=== PATIENT | female | born 1960 | race Hispanic/Latino ===

== ENCOUNTER 2018-04-21 14:51 | Emergency (ER) | payer OTHER ==
[2018-04-21 15:43] LABS: Absolute Lymphocytes (CBC) 1.5 K/uL (0.7-4.9); Absolute Monocytes 0.4 K/uL (0.1-1.3); Absolute Neutrophil 4.8 K/uL (1.8-8.0); Basophils % 0.4 % (0-1.3); Eosinophils % 0.8 % (0-4.4); Hematocrit 42.8 % (36.0-45.0); Lymphocytes % 21.7 % (15.3-44.8); MCV 86.3 fL (80-100); Monocytes % 5.9 % (3.3-12.3); RBC Red Blood Cell Count 4.96 M/uL (3.86-4.86)
--- NOTE | 2018-04-21 15:53 | RAD REPORT ---
EXAM DESCRIPTION: RAD - Chest Single View - 04/21/2018 3:22 pm CLINICAL HISTORY: Shortness of breath, cough COMPARISON: September 2016 TECHNIQUE: AP portable chest image was obtained 1518 hours . FINDINGS: Lungs are clear. Heart and vasculature are normal. No measurable pleural effusion and no p neumothorax. No acute bone finding. No acute aortic findings suspected. IMPRESSION: No acute cardiopulmonary process. No significant interval change.
[2018-04-21 15:57] LABS: Protime INR 0.92
[2018-04-21 17:05] LABS: ALT/SGPT 25 U/L (12-78); AST/SGOT 16 U/L (15-37); Albumin 3.7 g/dL (3.4-5.0); Alkaline Phosphatase 95 U/L (45-117); BUN Blood Urea Nitrogen 14 mg/dL (7-18); Bicarbonate 26 mmol/L (21-32); Bilirubin Direct 0.1 mg/dL (0-0.2); Bilirubin Total 0.4 mg/dL (0.2-1.0); CKMB Creatine Kinase MB < 1.0 ng/mL (0.3-3.6); Creatine Phosphokinase 52 U/L (26-192); Glucose Level 109 mg/dL (74-106); Magnesium 1.8 mg/dL (1.8-2.4); NT PRO-BNP 110 pg/mL (<125); Potassium 3.9 mmol/L (3.5-5.1); Protein, Total 7.1 g/dL (6.4-8.2); Sodium Level 139 mmol/L (136-145)
--- NOTE | 2018-04-21 17:23 | EDPHYS ---
Physician Documentation [facility] Name: Justina Yoo Age: 58 yrs Sex: Female : 1960 Arrival Date: 04/21/2018 Time: 14:53 Bed 13 Private MD: SOFIA WORLEY ED Physician Romie Serrato HPI: 04/21 16:50 This 58 yrs old Female presents to ER via Ambulatory with complaints of feli Palpitations, Dizziness. 16:50 The patient presents with a history of heart skipping beats. Context: The symptoms feli occur at rest. Onset: The symptoms/episode began/occurred 2 day(s) ago. Duration: The patient or guardian reports multiple episodes, with no pattern. Modifying factors: The symptoms are aggravated by anxiety, The symptoms are alleviated by nothing. rest. Associated signs and symptoms: Pertinent positives: anxiety. Severity of symptoms: At their worst the symptoms were mild in the emergency department the symptoms have resolved and did so just prior to arrival. The patient has experienced similar episodes in the past, several times. Historical: - Allergies: 15:07 PENICILLINS; jl7 - PMHx: 15:07 Anxiety; Arthritis; Asthma; Depression; Diabetes - NIDDM; Hypertension; Thyroid problem;jl7 - Immunization history:: Adult Immunizations not up to date. - Social history:: Smoking status: Patient/guardian denies using tobacco. - Ebola Screening: : No symptoms or risks identified at this time. - Family history:: not pertinent. ROS: 16:50 Constitutional: Negative for fever, chills, and weight loss, Eyes: Negative for injury, feli pain, redness, and discharge, ENT: Negative for injury, pain, and discharge, Neck: Negative for injury, pain, and swelling, Respiratory: Negative for shortness of breath, cough, wheezing, and pleuritic chest pain, Abdomen/GI: Negative for abdominal pain, nausea, vomiting, diarrhea, and constipation, Back: Negative for injury and pain, : Negative for injury, bleeding, discharge, and swelling, MS/Extremity: Negative for injury and deformity, Skin: Negative for injury, rash, and discoloration, Neuro: Negative for headache, weakness, numbness, tingling, and seizure. 16:50 Cardiovascular: Positive for palpitations. Exam: 16:50 Constitutional: This is a well developed, well nourished patient who is awake, alert, feli and in no acute distress. Head/Face: Normocephalic, atraumatic. Eyes: Pupils equal round and reactive to light, extra-ocular motions intact. Lids and lashes normal. Conjunctiva and sclera are non-icteric and not injected. Cornea within normal limits. Periorbital areas with no swelling, redness, or edema. ENT: Nares patent. No nasal discharge, no septal abnormalities noted. Tympanic membranes are normal and external auditory canals are clear. Oropharynx with no redness, swelling, or masses, exudates, or evidence of obstruction, uvula midline. Mucous membranes moist. Neck: Trachea midline, no thyromegaly or masses palpated, and no cervical lymphadenopathy. Supple, full range of motion without nuchal rigidity, or vertebral point tenderness. No Meningismus. Chest/axilla: Normal chest wall appearance and motion. Nontender with no deformity. No lesions are appreciated. Cardiovascular: Regular rate and rhythm with a normal S1 and S2. No gallops, murmurs, or rubs. Normal PMI, no JVD. No pulse deficits. Respiratory: Lungs have equal breath sounds bilaterally, clear to auscultation and percussion. No rales, rhonchi or wheezes noted. No increased work of breathing, no retractions or nasal flaring. Abdomen/GI: Soft, non-tender, with normal bowel sounds. No distension or tympany. No guarding or rebound. No evidence of tenderness throughout. Back: No spinal tenderness. No costovertebral tenderness. Full range of motion. Female : Normal external genitalia. Skin: Warm, dry with normal turgor. Normal color with no rashes, no lesions, and no evidence of cellulitis. 16:50 Musculoskeletal/extremity: DVT Exam: No signs of deep vein thrombosis. no pain, no swelling, no tenderness, negative Homans' sign noted on exam, no appreciated bluish discoloration, no erythema, no increased warmth. Vital Signs: 15:07 BP 126 / 61; Pulse 73; Resp 18 S; Temp 97.9(O); Pulse Ox 97% on R/A; Weight 114.31 kg jl7 (R); Height 5 ft. 0 in. (152.40 cm) (R); Pain 4/10; 17:35 BP 133 / 75 Standing; Pulse 72; Resp 18; Pulse Ox 97% on R/A; hj 17:36 BP 158 / 74 Sitting; Pulse 75; Resp 18; Pulse Ox 97% on R/A; hj 17:37 BP 124 / 56 Supine; Pulse 72; Resp 17; Pulse Ox 98% on R/A; hj 15:07 Body Mass Index 49.21 (114.31 kg, 152.40 cm) jl7 MDM: 15:10 Patient medically screened. [facility] 16:53 Data reviewed: vital signs, nurses notes, lab test result(s), EKG, radiologic studies, feli plain films. 04/21 15:12 Order name: Basic Metabolic Panel; Complete Time: 17:21 [facility] 04/21 15:12 Order name: CBC with Diff; Complete Time: 16:49 [facility] 04/21 15:12 Order name: Ckmb; Complete Time: 17:21 [facility] 04/21 15:12 Order name: CPK; Complete Time: 17:21 [facility] 04/21 15:12 Order name: LFT's; Complete Time: 17:21 [facility] 04/21 15:12 Order name: Magnesium; Complete Time: 17:21 [facility] 04/21 15:12 Order name: NT PRO-BNP; Complete Time: 17:21 [facility] 04/21 15:12 Order name: PT-INR; Complete Time: 16:49 [facility] 04/21 15:12 Order name: Ptt, Activated; Complete Time: 16:49 [facility] 04/21 15:12 Order name: Troponin (emerg Dept Use Only); Complete Time: 16:49 [facility] 04/21 15:12 Order name: XRAY Chest (1 view); Complete Time: 16:49 [facility] 04/21 15:12 Order name: TSH; Complete Time: 17:21 [facility] 04/21 17:42 Order name: Urine Dipstick--Ancillary (enter results) 04/21 15:12 Order name: EKG; Complete Time: 15:13 [facility] 04/21 15:12 Order name: Cardiac monitoring; Complete Time: 15:14 [facility] 04/21 15:12 Order name: EKG - Nurse/Tech; Complete Time: 15:27 [facility] 04/21 15:12 Order name: IV Saline Lock; Complete Time: 15:32 [facility] 04/21 15:12 Order name: Labs collected and sent; Complete Time: 15:32 [facility] 04/21 15:12 Order name: O2 Per Protocol; Complete Time: 15:14 [facility] 04/21 15:12 Order name: O2 Sat Monitoring; Complete Time: 15:15 [facility] 04/21 17:23 Order name: Orthostatics; Complete Time: 17:39 [facility] Administered Medications: 15:32 Drug: NS 0.9% 1000 ml Route: IV; Rate: 125 ml/hr; Site: right hand; cc3 17:31 Drug: Aspirin Chewable Tablet 162 mg Route: PO; cc3 17:39 Follow up: Response: No adverse reaction cc3 Disposition: 04/21/18 17:22 Discharged to Home. Impression: Palpitations, Type 2 diabetes mellitus, Obesity, unspecified, Anxiety disorder, unspecified. - Condition is Stable. - Discharge Instructions: Panic Attacks, Type 2 Diabetes Mellitus, Diagnosis, Adult, Obesity, Adult, Palpitations, Aspirin and Your Heart, Palpitations, [id number], Exercising to Lose Weight. - Prescriptions for Xanax 0.5 mg Oral Tablet - take 1 tablet by ORAL route every 8 hours As needed; 20 tablet. - Medication Reconciliation Form, Thank You Letter, Antibiotic Education, Prescription Opioid Use form. - Follow up: SOFIA WORLEY; When: 2 - 3 days; Reason: Recheck today's complaints, Continuance of care, Re-evaluation by your physician. Follow up: Saw Mathis; When: 2 - 3 days; Reason: Recheck today's complaints, Re-evaluation by your physician. - Problem is new. - Symptoms have improved. Signatures: Dispatcher [employer] EDRomie Brewer MD MD cha Williams, Irene RN Mookie Hammer RN RN jl7 Cordel, Charlene cc3 Corrections: (The following items were deleted from the chart) 17:56 17:22 04/21/2018 17:22 Discharged to Home. Impression: Palpitations; Type 2 diabetes iw mellitus; Obesity, unspecified; Anxiety disorder, unspecified. Condition is Stable. Discharge Instructions: Panic Attacks, Type 2 Diabetes Mellitus, Diagnosis, Adult, Obesity, Adult, Palpitations, Aspirin and Your Heart, Palpitations, [id number], Exercising to Lose Weight. Forms are Medication Reconciliation Form, Thank You Letter, Antibiotic Education, Prescription Opioid Use. Follow up: SOFIA WORLEY; When: 2 - 3 days; Reason: Recheck today's complaints, Continuance of care, Re-evaluation by your physician. Follow up: Saw Mathis; When: 2 - 3 days; Reason: Recheck today's complaints, Re-evaluation by your physician. Problem is new. Symptoms have improved. feli
--- NOTE | 2018-04-21 17:23 | ER ---
Nurse's Notes [facility] Name: Justina Yoo Age: 58 yrs Sex: Female : 1960 Arrival Date: 04/21/2018 Time: 14:53 Bed 13 Private MD: SOFIA WORLEY Diagnosis: Palpitations;Type 2 diabetes mellitus;Obesity, unspecified;Anxiety disorder, unspecified Presentation: 04/21 15:05 Presenting complaint: Patient states: Reports dizziness, nausea, heart palpitations, jl7 shortness of breath with cough x 2 days. Transition of care: patient was not received from another setting of care. Onset of symptoms was April 19, 2018. Risk Assessment: Do you want to hurt yourself or someone else? Patient reports no desire to harm self or others. Initial Sepsis Screen: Does the patient meet any 2 criteria? No. Patient's initial sepsis screen is negative. Does the patient have a suspected source of infection? No. Patient's initial sepsis screen is negative. Care prior to arrival: None. 15:05 Method Of Arrival: Ambulatory 7 15:05 Acuity: SARIKA 3 jl7 Triage Assessment: 15:20 General: Appears comfortable, Behavior is calm, cooperative, appropriate for age. Pain: cc3 Complains of pain in chest Pain currently is 2 out of 10 on a pain scale. Quality of pain is described as aching, Pain began suddenly. 15:20 Cardiovascular: Chest pain is described as mild. cc3 Historical: - Allergies: 15:07 PENICILLINS; jl7 - PMHx: 15:07 Anxiety; Arthritis; Asthma; Depression; Diabetes - NIDDM; Hypertension; Thyroid problem;jl7 - Immunization history:: Adult Immunizations not up to date. - Social history:: Smoking status: Patient/guardian denies using tobacco. - Ebola Screening: : No symptoms or risks identified at this time. - Family history:: not pertinent. Screenin:20 Abuse screen: Denies threats or abuse. Nutritional screening: No deficits noted. cc3 Tuberculosis screening: No symptoms or risk factors identified. 15:20 Fall Risk IV access (20 points). Gait- Normal/Bed Rest/Wheelchair (0 pts) Mental cc3 Status- Oriented to own ability (0 pts). Vital Signs: 15:07 BP 126 / 61; Pulse 73; Resp 18 S; Temp 97.9(O); Pulse Ox 97% on R/A; Weight 114.31 kg jl7 (R); Height 5 ft. 0 in. (152.40 cm) (R); Pain 4/10; 17:35 BP 133 / 75 Standing; Pulse 72; Resp 18; Pulse Ox 97% on R/A; hj 17:36 BP 158 / 74 Sitting; Pulse 75; Resp 18; Pulse Ox 97% on R/A; hj 17:37 BP 124 / 56 Supine; Pulse 72; Resp 17; Pulse Ox 98% on R/A; hj 15:07 Body Mass Index 49.21 (114.31 kg, 152.40 cm) jl7 ED Course: 14:53 Patient arrived in ED. sb2 14:54 SOFIA WORLEY is Private Physician. sb2 15:07 Triage completed. jl7 15:08 Arm band placed on right wrist. jl7 15:10 Romie Serrato MD is Attending Physician. feli 15:20 Patient has correct armband on for positive identification. Placed in gown. Bed in low cc3 position. Call light in reach. Side rails up X2. 15:22 XRAY Chest (1 view) In Process Unspecified. EDMS 15:22 X-ray completed. Portable x-ray completed in exam room. Patient tolerated procedure bb2 well. 15:32 Initial lab(s) drawn, by me, sent to lab. EKG done, by rv service technician. Inserted saline lock: cc3 22 gauge in right hand, using aseptic technique. Blood collected. 15:36 EKG done, by rv service technician. reviewed by Romie Serrato MD. dt2 17:22 SOFIA WORLEY is Referral Physician. feli 17:22 Saw Mathis MD is Referral Physician. feli 17:45 No provider procedures requiring assistance completed. hj 17:45 IV discontinued, intact, bleeding controlled, No redness/swelling at site. Pressure hj dressing applied. Administered Medications: 15:32 Drug: NS 0.9% 1000 ml Route: IV; Rate: 125 ml/hr; Site: right hand; cc3 17:31 Drug: Aspirin Chewable Tablet 162 mg Route: PO; cc3 17:39 Follow up: Response: No adverse reaction cc3 Outcome: 17:22 Discharge ordered by . feli 17:45 Discharged to home ambulatory, with family. hj 17:45 Condition: stable 17:45 Discharge instructions given to patient, family, Instructed on discharge instructions, follow up and referral plans. medication usage, Demonstrated understanding of instructions, follow-up care, medications, Prescriptions given X 1. 17:56 Patient left the ED. iw Signatures: Dispatcher [employer] EDMS Romie Serrato MD MD cha Williams, Irene RN TSERING iw Tay Werner RN RN hj Leal, Jahala, RN RN jl7 Mimi Meraz2 Maria Fernanda Garcia sb2 Viktoria Amaya dt2 Vandana Yancey cc3
--- NOTE | 2018-04-21 17:26 | EKG ---
Test Date: 2018-04-21 Test Time: 15:19:53 Order Packer: RENU MEASUREMENT RESULTS: Intervals: Rate: 72 IA: 160 QRSD: 84 QT: 402 QTc: 440 [place]: P: 12 IA: 160 QRS: 31 T: 22 INTERPRETIVE STATEMENTS: Normal sinus rhythm with sinus arrhythmia Normal ECG Compared to ECG 10/04/2016 19:16:14 Myocardial infarct finding no longer present Electronically Signed On 04-21-18 17:25:49 CDT by Marko Baeza
[2018-04-21] MEDS ORDERED: ASPIRIN EC 81 MG TAB PO ONE (17:39)
[2018-04-21 18:02] VITALS: BP 126/61; TEMP 97.9; O2SAT 97
[2018-04-21 18:14] LABS: Urine Blood NEGATIVE (NEG); Urine Glucose NEGATIVE (NEG); Urine Protein NEGATIVE (NEG); Urine Specific Gravity 1.015 (1.005-1.030)
== END 2018-04-21 17:56 | disposition home or self-care (01) ==
LOC: ER 14:51
DX: F41.9 Anxiety disorder, unspecified (principal); E11.9 Type 2 diabetes mellitus without complications; E66.9 Obesity, unspecified; I10 Essential (primary) hypertension; Z88.0 Allergy status to penicillin
CPT/HCPCS: 36415; 71045; 80048; 80076; 81003; 82550; 82553; 83735; 83880; 84443; 84484; 85025; 85610; 85730; 93005; 99284

== ENCOUNTER 2018-06-11 21:06 | Emergency (ER) | payer OTHER ==
[2018-06-11 21:37] LABS: Absolute Lymphocytes (CBC) 2.1 K/uL (0.7-4.9); Absolute Monocytes 0.5 K/uL (0.1-1.3); Absolute Neutrophil 5.1 K/uL (1.8-8.0); Basophils % 0.5 % (0-1.3); Eosinophils % 0.7 % (0-4.4); Hematocrit 40.4 % (36.0-45.0); Lymphocytes % 27.7 % (15.3-44.8); MCH 29.1 pg (27.0-35.0); MCV 86.2 fL (80-100); MPV 8.8 fL (7.6-11.3); RBC Red Blood Cell Count 4.69 M/uL (3.86-4.86)
[2018-06-11 21:44] LABS: Protime INR 0.97
[2018-06-11 21:59] LABS: ALT/SGPT 18 U/L (12-78); AST/SGOT 9 U/L (15-37); Albumin 3.7 g/dL (3.4-5.0); Alkaline Phosphatase 97 U/L (45-117); BUN Blood Urea Nitrogen 13 mg/dL (7-18); Bicarbonate 28 mmol/L (21-32); Bilirubin Direct 0.1 mg/dL (0-0.2); Bilirubin Total 0.4 mg/dL (0.2-1.0); Glucose Level 112 mg/dL (74-106); Magnesium 1.9 mg/dL (1.8-2.4); NT PRO-BNP 90 pg/mL (<125); Potassium 3.7 mmol/L (3.5-5.1); Protein, Total 7.1 g/dL (6.4-8.2); Sodium Level 143 mmol/L (136-145); Troponin (Emerg Dept Use Only) < 0.02 ng/mL (0.0-0.045)
--- NOTE | 2018-06-12 00:37 | ER ---
Nurse's Notes [facility] Name: Justina Yoo Age: 58 yrs Sex: Female : 1960 Arrival Date: 06/11/2018 Time: 21:08 Bed 7 Private MD: Diagnosis: Presentation: 06/11 21:18 Presenting complaint: Patient states: She had chest pain that started about three hours ea ago when she was walking at [employer], pt reports it comes and goes and is also having acid reflux. Transition of care: patient was not received from another setting of care. Onset of symptoms was June 11, 2018. Risk Assessment: Do you want to hurt yourself or someone else? Patient reports no desire to harm self or others. Initial Sepsis Screen: Does the patient meet any 2 criteria? No. Patient's initial sepsis screen is negative. Does the patient have a suspected source of infection? No. Patient's initial sepsis screen is negative. Care prior to arrival: Medication(s) given: ASA, 81 mg, x 1. 21:18 Method Of Arrival: Ambulatory ea 21:18 Acuity: SARIKA 3 ea Triage Assessment: 21:27 General: Appears in no apparent distress. Behavior is calm, cooperative, appropriate ea for age. Pain: Complains of pain in anterior aspect of left upper chest Pain does not radiate. Pain currently is 5 out of 10 on a pain scale. Quality of pain is described as pressure, Pain began 3 hours ago. Is intermittent. EENT: No signs and/or symptoms were reported regarding the EENT system. Neuro: Level of Consciousness is awake, alert, obeys commands, Oriented to person, place, time, situation. Cardiovascular: Heart tones S1 S2 present Patient's skin is warm and dry. Respiratory: Airway is patent Respiratory effort is even, unlabored, Respiratory pattern is regular, symmetrical, Breath sounds are clear bilaterally. GI: Abdomen is non-distended, Bowel sounds present X 4 quads. Derm: Skin is pink, warm \T\ dry. Historical: - Allergies: 21:26 PENICILLINS; ea - Home Meds: 21:26 carvedilol 6.25 mg Oral tab 1 tab 2 times per day [Active]; aspirin 81 mg Oral TbEC 1 ea tab once daily [Active]; lisinopril 10 mg Oral tab 1 tab once daily [Active]; metformin 500 mg Oral Tb24 1 tab once daily [Active]; Synthroid 125 mcg Oral tab 1 tab once daily [Active]; Victoza 2-Patrick subcutaneous subcutaneous [Active]; - PMHx: 21:26 Thyroid problem; Hypertension; Diabetes - NIDDM; Depression; Asthma; Arthritis; Anxiety;ea - Immunization history:: Adult Immunizations up to date. - Social history:: Smoking status: Patient/guardian denies using tobacco. - Ebola Screening: : No symptoms or risks identified at this time. Screenin:27 Abuse screen: Denies threats or abuse. Nutritional screening: No deficits noted. ea Tuberculosis screening: No symptoms or risk factors identified. Fall Risk IV access (20 points). Assessment: 22:25 Reassessment: Patient and/or family updated on plan of care and expected duration. Pain ea level reassessed. Patient is alert, oriented x 3, equal unlabored respirations, skin warm/dry/pink. 22:40 Reassessment: Patient and/or family updated on plan of care and expected duration. Pain ea level reassessed. Patient is alert, oriented x 3, equal unlabored respirations, skin warm/dry/pink. Patient states feeling better. Patient states symptoms have improved. 23:57 Reassessment: Patient and/or family updated on plan of care and expected duration. Pain ea level reassessed. Patient is alert, oriented x 3, equal unlabored respirations, skin warm/dry/pink. Patient states feeling better. Patient states symptoms have improved. 06/12 00:31 Reassessment: Patient and/or family updated on plan of care and expected duration. Pain ea level reassessed. Patient is alert, oriented x 3, equal unlabored respirations, skin warm/dry/pink. Pt reports she did not want to wait for results because her granddaughter was waiting in the lobby. Provider notified, pt verbalized the understanding of possible adverse effects of leaving AMA, pt signed AMA form. IV discontinued, catheter intact, bleeding controlled, pressure dressing applied pt tolerated well. Pt left ED ambulating no s/s of pain or discomfort noted. Patient states feeling better. Patient states symptoms have improved. Vital Signs: 06/11 21:22 BP 125 / 55; Pulse 87; Resp 20; Temp 98.7(O); Pulse Ox 100% ; Weight 115.67 kg; Height ea 5 ft. 0 in. (152.40 cm); Pain 5/10; 22:01 BP 113 / 53; Pulse 83; Resp 18; Pulse Ox 99% on R/A; mt 23:41 BP 140 / 68; Pulse 84; Resp 18; Pulse Ox 98% on R/A; mt 21:22 Body Mass Index 49.80 (115.67 kg, 152.40 cm) ea ED Course: 21:08 Patient arrived in ED. al2 21:13 Britni Lawrence RN is Primary Nurse. ea 21:16 Gorge Gooden MD is Attending Physician. tw4 21:22 Triage completed. ea 21:24 Patient placed in an exam room, on a stretcher, on professor of forest planning, on pulse oximetry. ea 21:27 Patient has correct armband on for positive identification. Bed in low position. Call ea light in reach. Side rails up X 1. wing coverer on. Pulse ox on. NIBP on. 21:29 Inserted saline lock: 20 gauge in right antecubital area, using aseptic technique. ea Blood collected. Patient maintains SpO2 saturation greater than 95% on room air. 21:44 XRAY Chest (1 view) In Process Unspecified. EDMS 06/12 00:35 No provider procedures requiring assistance completed. IV discontinued, intact, ea bleeding controlled, No redness/swelling at site. Pressure dressing applied. Administered Medications: No medications were administered Outcome: 00:35 AMA AMA form signed ea 00:36 Patient left the ED. ea Signatures: Dispatcher [employer] EDNE Joseline Webb wa Britni Lawrence, Karyna Emerson RN, ea [facility] Gorge Gooden MD MD tw4
--- NOTE | 2018-06-12 00:37 | EDPHYS ---
Physician Documentation [facility] Name: Justina Yoo Age: 58 yrs Sex: Female : 1960 Arrival Date: 06/11/2018 Time: 21:08 Bed 7 Private MD: ED Physician Gorge Gooden Historical: - Allergies: 06/11 21:26 PENICILLINS; ea - Home Meds: 21:26 carvedilol 6.25 mg Oral tab 1 tab 2 times per day [Active]; aspirin 81 mg Oral TbEC 1 ea tab once daily [Active]; lisinopril 10 mg Oral tab 1 tab once daily [Active]; metformin 500 mg Oral Tb24 1 tab once daily [Active]; Synthroid 125 mcg Oral tab 1 tab once daily [Active]; Victoza 2-Patrick subcutaneous subcutaneous [Active]; - PMHx: 21:26 Thyroid problem; Hypertension; Diabetes - NIDDM; Depression; Asthma; Arthritis; Anxiety;ea - Immunization history:: Adult Immunizations up to date. - Social history:: Smoking status: Patient/guardian denies using tobacco. - Ebola Screening: : No symptoms or risks identified at this time. Vital Signs: 21:22 BP 125 / 55; Pulse 87; Resp 20; Temp 98.7(O); Pulse Ox 100% ; Weight 115.67 kg; Height ea 5 ft. 0 in. (152.40 cm); Pain 5/10; 22:01 BP 113 / 53; Pulse 83; Resp 18; Pulse Ox 99% on R/A; mt 23:41 BP 140 / 68; Pulse 84; Resp 18; Pulse Ox 98% on R/A; mt 21:22 Body Mass Index 49.80 (115.67 kg, 152.40 cm) ea MDM: 21:16 Patient medically screened. tw4 06/11 21:21 Order name: Basic Metabolic Panel tw4 06/11 21:21 Order name: CBC with Diff tw4 06/11 21:21 Order name: LFT's tw4 06/11 21:21 Order name: Magnesium tw4 06/11 21:21 Order name: NT PRO-BNP tw4 06/11 21:21 Order name: PT-INR tw4 06/11 21:21 Order name: Troponin (emerg Dept Use Only) tw4 06/11 21:21 Order name: XRAY Chest (1 view) tw4 06/11 21:21 Order name: EKG; Complete Time: 21: tw4 06/11 21:21 Order name: Cardiac monitoring; Complete Time: : tw4 06/11 21:21 Order name: EKG - Nurse/Tech; Complete Time: 21:23 tw4 06/11 21:21 Order name: IV Saline Lock; Complete Time: 22:02 tw4 06/11 21:21 Order name: Labs collected and sent; Complete Time: 22:02 tw4 06/12 00:19 Order name: Troponin (emerg Dept Use Only) ea 06/11 21:21 Order name: O2 Per Protocol; Complete Time: : tw4 06/11 21:21 Order name: O2 Sat Monitoring; Complete Time: : tw EC/04 00:35 Rate is 81 beats/min. Rhythm is regular. QRS [place] is Normal. VT interval is normal. QRS tw4 interval is normal. QT interval is normal. No Q waves. T waves are Normal. No ST changes noted. Clinical impression: Normal ECG. Interpreted by me. Reviewed by me. Administered Medications: No medications were administered Disposition: 06/12/18 00:36 Patient has left against medical advice. - Patients states they are going to Home. - Condition is Stable. Signatures: Dispatcher [employer] Britni Ramirez, RN Gorge Phipps ea, MD MD tw4 Corrections: (The following items were deleted from the chart) 00:36 00:36 06/12/2018 00:36 Patients has left against medical advice. Patient states they ea are going to Home. Condition is Stable. garcia
[2018-06-12 00:41] VITALS: TEMP 98.7
[2018-06-12 00:43] VITALS: BP 140/68; O2SAT 98
--- NOTE | 2018-06-12 06:31 | RAD REPORT ---
EXAM DESCRIPTION: RAD - Chest Single View - 06/11/2018 9:45 pm CLINICAL HISTORY: Chest pain COMPARISON: April 21 TECHNIQUE: AP portable chest image was obtained 2131 hours . FINDINGS: Lungs are clear. Heart and vasculature are normal. No measurable pleural effusion and no p neumothorax. No gross bony abnormality seen. No acute aortic findings suspected. IMPRESSION: No acute cardiopulmonary process. No significant interval change.
--- NOTE | 2018-06-12 16:49 | EKG ---
Test Date: 2018-06-11 Test Time: 21:16:58 Construction Millwright: FAUSTINO MEASUREMENT RESULTS: Intervals: Rate: 81 DE: 150 QRSD: 88 QT: 388 QTc: 450 [place]: P: 18 DE: 150 QRS: 60 T: 44 INTERPRETIVE STATEMENTS: Normal sinus rhythm Normal ECG Compared to ECG 04/21/2018 15:19:53 Sinus arrhythmia no longer present Electronically Signed On 06-12-18 16:44:50 CDT by Saw Mathis
== END 2018-06-12 00:36 | disposition left against medical advice (07) ==
LOC: ER 21:06
DX: R07.9 Chest pain, unspecified (principal); I10 Essential (primary) hypertension; E11.9 Type 2 diabetes mellitus without complications; F41.8 Other specified anxiety disorders; Z88.0 Allergy status to penicillin
CPT/HCPCS: 36415; 71045; 80048; 80076; 83735; 83880; 84484; 85025; 85610; 93005; 99285

== ENCOUNTER 2018-08-08 09:06 | Emergency (ER) | payer OTHER, MEDICAID ==
[2018-08-08] MEDS ORDERED: ONDANSETRON 4 MG/2 ML VIAL ONE (10:34)
[2018-08-08] MEDS ORDERED: NA CHLORIDE 0.9% 1,000 ML ONE (10:34)
[2018-08-08 10:45] LABS: Absolute Lymphocytes (CBC) 0.2 K/uL (0.7-4.9); Absolute Monocytes 0.3 K/uL (0.1-1.3); Absolute Neutrophil 9.3 K/uL (1.8-8.0); Basophils % 0.2 % (0-1.3); Hematocrit 42.7 % (36.0-45.0); Lymphocytes % 2.4 % (15.3-44.8); MCH 30.3 pg (27.0-35.0); MCV 85.8 fL (80-100); MPV 9.2 fL (7.6-11.3); Monocytes % 3.5 % (3.3-12.3); RBC Red Blood Cell Count 4.98 M/uL (3.86-4.86)
[2018-08-08 11:02] LABS: Albumin 3.5 g/dL (3.4-5.0); Bilirubin Direct 2.2 mg/dL (0-0.2); Bilirubin Total 3.6 mg/dL (0.2-1.0); Potassium 3.8 mmol/L (3.5-5.1); Protein, Total 7.1 g/dL (6.4-8.2)
--- NOTE | 2018-08-08 11:42 | RAD REPORT ---
EXAM DESCRIPTION: US - Abdomen Exam Limited - 08/08/2018 11:34 am CLINICAL HISTORY: ABD PAIN COMPARISON: RP EXAM COMPLETE dated 03/31/2009 FINDINGS: The gallbladder demonstrates no gallstones. No pericholecystic fluid or gallbladder wall t hickening. The common bile duct is normal measuring 3 mm. The liver demonstrates no findings of intrahepatic biliary dilatation. IMPRESSION: Unremarkable examination.
--- NOTE | 2018-08-08 12:36 | RAD REPORT ---
EXAM DESCRIPTION: CT - Abdomen Pelvis W Contrast - 08/08/2018 12:19 pm CLINICAL HISTORY: Abdominal pain with vomiting COMPARISON: 2015. TECHNIQUE: Computed axial tomography of the abdomen pelvis was obtained. 100 cc Isovue-300 was admin istered intravenously. Oral contrast was not requested which limits evaluation of bowel. All CT scans are performed using dose optimization technique as appropriate and may include automated exposure control or mA/KV adjustment according to patient size. FINDINGS: The liver, spleen, pancreas, adrenal and kidneys appear unremarkable. There is no evidence of diverticulitis. The appendix is normal. An adnexal mass is not seen. A tiny umbilical hernia is present. IMPRESSION: No acute abnormality is displayed.
--- NOTE | 2018-08-08 13:47 | EDPHYS ---
Physician Documentation [facility] Name: Justina Yoo Age: 58 yrs Sex: Female : 1960 Arrival Date: 08/08/2018 Time: 09:09 Bed 5 Private MD: SOFIA WORLEY ED Physician Ghulam Rogel HPI: 08/08 11:06 This 58 yrs old Female presents to ER via Ambulatory with complaints of Flu kb Symptoms. 11:06 The patient presents to the emergency department with nausea, vomiting. Onset: The kb symptoms/episode began/occurred yesterday. Possible causes: unknown. The symptoms are aggravated by nothing. The symptoms are alleviated by nothing. Associated signs and symptoms: Pertinent positives: abdominal pain, nausea, vomiting, Pertinent negatives: anorexia, belching, constipation, diarrhea, dysuria, fever, flatulence, GI bleeding, hematuria, vaginal discharge. Severity of symptoms: At their worst the symptoms were moderate in the emergency department the symptoms are unchanged. The patient has not experienced similar symptoms in the past. The patient has not recently seen a physician. Pt reports nausea, vomiting, and chills that started yesterday. Reports upper abd pain yesterday, no pain today. Historical: - Allergies: 09:23 PENICILLINS; ss - PMHx: 09:23 Anxiety; Arthritis; Asthma; Depression; Diabetes - NIDDM; Hypertension; Thyroid problem;ss - Immunization history:: Adult Immunizations up to date. - Social history:: Smoking status: Patient/guardian denies using tobacco. - Ebola Screening: : Patient denies exposure to infectious person Patient denies travel to an Ebola-affected area in the 21 days before illness onset. ROS: 11:05 Neck: Negative for injury, pain, and swelling, Cardiovascular: Negative for chest pain, kb palpitations, and edema, Respiratory: Negative for shortness of breath, cough, wheezing, and pleuritic chest pain, Back: Negative for injury and pain, : Negative for injury, bleeding, discharge, and swelling, MS/Extremity: Negative for injury and deformity, Skin: Negative for injury, rash, and discoloration, Neuro: Negative for headache, weakness, numbness, tingling, and seizure. 11:05 Constitutional: Positive for body aches, chills, Negative for fatigue, fever, malaise, poor PO intake, weight loss. 11:05 Abdomen/GI: Positive for abdominal pain, nausea and vomiting, Negative for diarrhea, constipation, abdominal cramps, abdominal distension, anorexia. Exam: 11:05 Constitutional: This is a well developed, well nourished patient who is awake, alert, kb and in no acute distress. Head/Face: Normocephalic, atraumatic. ENT: Nares patent. No nasal discharge, no septal abnormalities noted. Tympanic membranes are normal and external auditory canals are clear. Oropharynx with no redness, swelling, or masses, exudates, or evidence of obstruction, uvula midline. Mucous membranes moist. Neck: Trachea midline, no thyromegaly or masses palpated, and no cervical lymphadenopathy. Supple, full range of motion without nuchal rigidity, or vertebral point tenderness. No Meningismus. Chest/axilla: Normal chest wall appearance and motion. Nontender with no deformity. No lesions are appreciated. Cardiovascular: Regular rate and rhythm with a normal S1 and S2. No gallops, murmurs, or rubs. Normal PMI, no JVD. No pulse deficits. Respiratory: Lungs have equal breath sounds bilaterally, clear to auscultation and percussion. No rales, rhonchi or wheezes noted. No increased work of breathing, no retractions or nasal flaring. Abdomen/GI: Soft, non-tender, with normal bowel sounds. No distension or tympany. No guarding or rebound. No evidence of tenderness throughout. Skin: Warm, dry with normal turgor. Normal color with no rashes, no lesions, and no evidence of cellulitis. MS/ Extremity: Pulses equal, no cyanosis. Neurovascular intact. Full, normal range of motion. Neuro: Awake and alert, GCS 15, oriented to person, place, time, and situation. Cranial nerves II-XII grossly intact. Motor strength 5/5 in all extremities. Sensory grossly intact. Cerebellar exam normal. Normal gait. Vital Signs: 09:23 BP 135 / 74; Pulse 98; Resp 16; Temp 97.9(TE); Pulse Ox 98% on R/A; Weight 113.4 kg; ss Height 5 ft. 0 in. (152.40 cm); Pain 0/10; 10:30 BP 132 / 72; Pulse 88; Resp 15; Pulse Ox 100% on R/A; hb 11:30 BP 138 / 78; Pulse 84; Resp 16; Pulse Ox 100% on R/A; hb 12:30 BP 132 / 74; Pulse 77; Resp 16; Pulse Ox 100% on R/A; Pain 0/10; hb 13:22 BP 129 / 69; Pulse 79; Resp 17; Pulse Ox 97% on R/A; hb 09:23 Body Mass Index 48.82 (113.40 kg, 152.40 cm) ss MDM: 10:16 Patient medically screened. kb 11:05 Data reviewed: vital signs, nurses notes. Data interpreted: Pulse oximetry: on room air kb is 98 %. Interpretation: normal. 13:45 Counseling: I had a detailed discussion with the patient and/or guardian regarding: the kb historical points, exam findings, and any diagnostic results supporting the discharge/admit diagnosis, lab results, radiology results, the need for further work-up and treatment in the hospital. Refusal of service: The patient/guardian displays adequate decision making capability and despite a detailed discussion of alternatives, benefits, risks, and consequences refuses: Admission to the hospital for further work-up and treatment. ED course: Pt educated on elevated liver enzymes and need for admission to further studies. Pt does not want to stay in the hospital. States she will see her doctor.. 08/08 09:24 Order name: Flu; Complete Time: 10:16 ss 08/08 10:19 Order name: Basic Metabolic Panel; Complete Time: 11:08 kb 08/08 10:19 Order name: CBC with Diff; Complete Time: 10:53 kb 08/08 10:19 Order name: Hepatic Function; Complete Time: 11:08 kb 08/08 10:19 Order name: Lipase; Complete Time: 11:08 kb 08/08 10:19 Order name: [place] Screen Profile; Complete Time: 11:07 kb 08/08 10:19 Order name: IV Saline Lock; Complete Time: 10:36 kb 08/08 10:19 Order name: Labs collected and sent; Complete Time: 10:36 kb 08/08 11:08 Order name: US Abdomen Limited kb 08/08 11:43 Order name: US; Complete Time: 11:45 EDMS 08/08 11:58 Order name: CT Abd/Pelvis - W/Contrast kb 08/08 12:37 Order name: CT; Complete Time: 12:37 EDMS 08/08 12:38 Order name: PO challenge; Complete Time: 13:13 kb Administered Medications: 10:35 Drug: NS 0.9% 1000 ml Route: IV; Rate: 1000 ml; Site: right antecubital; hb 11:40 Follow up: Response: No adverse reaction; IV Status: Completed infusion hb 10:36 Drug: Zofran 4 mg Route: IVP; Site: right antecubital; hb 11:00 Follow up: Response: No adverse reaction sv Disposition: 08/08/18 13:46 Patient has left against medical advice. Impression: Abnormal results of liver function studies, Nausea and vomiting. - Patients states they are going to Home. - Condition is Stable. - Discharge Instructions: Nausea and Vomiting, Adult, [id number]. - Prescriptions for Zofran 4 mg Oral Tablet - take 1 tablet by ORAL route every 6 hours As needed; 20 tablet. Follow up: Emergency Department; When: As needed; Reason: Worsening of condition. Follow up: Private Physician; When: 2 - 3 days; Reason: Recheck today's complaints, Continuance of care, Re-evaluation by your physician. - Problem is new. - Symptoms have improved. Addendum: 08/10/2018 09:08 Co-signature as Attending Physician, Ghulam Rogel MD I agree with the assessment and k dr plan of care. Signatures: Dispatcher [employer] [facility] Cuca Bustamante, QUALITATIVE FIELD PROJECT MANAGER-C QUALITATIVE FIELD PROJECT MANAGER-Ckb Ghulam Rogel MD MD [facility] Akua Chirinos RN RN Kemi Barry RN RN hb Verde, Stephanie RN Corrections: (The following items were deleted from the chart) 08/08 14:01 13:46 08/08/2018 13:46 Patients has left against medical advice. Impression: Abnormal hb results of liver function studies; Nausea and vomiting. Patient states they are going to Home. Condition is Stable. Follow up: Emergency Department; When: As needed; Reason: Worsening of condition. Follow up: Private Physician; When: 2 - 3 days; Reason: Recheck today's complaints, Continuance of care, Re-evaluation by your physician. Problem is new. Symptoms have improved. kb
--- NOTE | 2018-08-08 13:47 | ER ---
Nurse's Notes [facility] Name: Justina Yoo Age: 58 yrs Sex: Female : 1960 Arrival Date: 08/08/2018 Time: 09:09 Bed 5 Private MD: SOFIA WORLEY Diagnosis: Abnormal results of liver function studies;Nausea and vomiting Presentation: 08/08 09:22 Presenting complaint: Patient states: body aches, chills that began yesterday and ss vomiting since last night. Unknown fever. Transition of care: patient was not received from another setting of care. Onset of symptoms was August 07, 2018. Risk Assessment: Do you want to hurt yourself or someone else? Patient reports no desire to harm self or others. Initial Sepsis Screen: Does the patient meet any 2 criteria? No. Patient's initial sepsis screen is negative. Does the patient have a suspected source of infection? No. Patient's initial sepsis screen is negative. Care prior to arrival: None. 09:22 Method Of Arrival: Ambulatory ss 09:22 Acuity: SARIKA 3 ss Triage Assessment: 09:22 General: Appears comfortable, Behavior is calm, cooperative. General: Reports chills ss for 12-24 hours, feeling ill for 12-24 hours. Pain: Complains of pain in generalized body aches Pain currently is 0 out of 10 on a pain scale. at worst was 8 out of 10 on a pain scale. EENT: Oral mucosa is moist. Neuro: Level of Consciousness is awake, alert, obeys commands. Respiratory: Respiratory effort is even, unlabored, Denies cough. Derm: Skin is intact, is thin, Skin is dry, Skin is pink, warm \T\ dry. normal. Historical: - Allergies: 09:23 PENICILLINS; ss - PMHx: 09:23 Anxiety; Arthritis; Asthma; Depression; Diabetes - NIDDM; Hypertension; Thyroid problem;ss - Immunization history:: Adult Immunizations up to date. - Social history:: Smoking status: Patient/guardian denies using tobacco. - Ebola Screening: : Patient denies exposure to infectious person Patient denies travel to an Ebola-affected area in the 21 days before illness onset. Screenin:36 Abuse screen: Denies threats or abuse. Denies injuries from another. Nutritional hb screening: No deficits noted. Tuberculosis screening: No symptoms or risk factors identified. Fall Risk None identified. Assessment: 10:32 General: Appears in no apparent distress. Behavior is calm, cooperative. Pain: Denies hb pain. Neuro: Level of Consciousness is awake, alert, obeys commands, Oriented to person, place, time, situation. Cardiovascular: Heart tones S1 S2 present Capillary refill < 3 seconds Patient's skin is warm and dry. Respiratory: Airway is patent Trachea midline Respiratory effort is even, unlabored, Respiratory pattern is regular, symmetrical, Breath sounds are clear bilaterally. GI: Reports. : No signs and/or symptoms were reported regarding the genitourinary system. EENT: No signs and/or symptoms were reported regarding the EENT system. Derm: Skin is intact, is healthy with good turgor, Skin is pink, warm \T\ dry. Musculoskeletal: No signs and/or symptoms reported regarding the musculoskeletal system. 11:30 Reassessment: Patient appears in no apparent distress at this time. Patient and/or hb family updated on plan of care and expected duration. Pain level reassessed. Patient is alert, oriented x 3, equal unlabored respirations, skin warm/dry/pink. 12:30 Reassessment: Patient appears in no apparent distress at this time. No changes from hb previously documented assessment. Patient and/or family updated on plan of care and expected duration. Pain level reassessed. Patient is alert, oriented x 3, equal unlabored respirations, skin warm/dry/pink. 13:22 Reassessment: Patient appears in no apparent distress at this time. No changes from hb previously documented assessment. Patient and/or family updated on plan of care and expected duration. Pain level reassessed. Patient is alert, oriented x 3, equal unlabored respirations, skin warm/dry/pink. Vital Signs: 09:23 BP 135 / 74; Pulse 98; Resp 16; Temp 97.9(TE); Pulse Ox 98% on R/A; Weight 113.4 kg; ss Height 5 ft. 0 in. (152.40 cm); Pain 0/10; 10:30 BP 132 / 72; Pulse 88; Resp 15; Pulse Ox 100% on R/A; hb 11:30 BP 138 / 78; Pulse 84; Resp 16; Pulse Ox 100% on R/A; hb 12:30 BP 132 / 74; Pulse 77; Resp 16; Pulse Ox 100% on R/A; Pain 0/10; hb 13:22 BP 129 / 69; Pulse 79; Resp 17; Pulse Ox 97% on R/A; hb 09:23 Body Mass Index 48.82 (113.40 kg, 152.40 cm) ED Course: 09:09 Patient arrived in ED. sb2 09:10 SOFIA WORLEY is Private Physician. sb2 09:23 Triage completed. ss 09:23 Arm band placed on left wrist. ss 09:39 Flu Sent. ss 10:16 Cuca Bustamante FNP-C is [facility]. kb 10:16 Ghulam Rogel MD is Attending Physician. kb 10:24 Kemi Barry, RN is Primary Nurse. hb 10:32 Inserted saline lock: 20 gauge in right antecubital area, using aseptic technique. hb Blood collected. 10:36 Patient has correct armband on for positive identification. Bed in low position. Call hb light in reach. Side rails up X 1. 11:26 Patient taken to ultrasound. via wheelchair. aa4 12:18 CT completed. Patient tolerated procedure well. Patient moved to CT via stretcher. Patient moved back from CT. 13:29 CT Abd/Pelvis - W/Contrast Sent. sv 13:29 US Abdomen Limited Sent. sv 13:59 No provider procedures requiring assistance completed. IV discontinued, intact, hb bleeding controlled, No redness/swelling at site. Pressure dressing applied. Administered Medications: 10:35 Drug: NS 0.9% 1000 ml Route: IV; Rate: 1000 ml; Site: right antecubital; hb 11:40 Follow up: Response: No adverse reaction; IV Status: Completed infusion hb 10:36 Drug: Zofran 4 mg Route: IVP; Site: right antecubital; hb 11:00 Follow up: Response: No adverse reaction sv Outcome: 13:59 AMA AMA form signed hb 13:59 Condition: stable 13:59 Instructed on medication usage, Demonstrated understanding of instructions, Prescriptions given X 1. 14:01 Patient left the ED. hb Signatures: Cuca Bustamante FNP-C FNP-Ckb Verde, Stephanie, RN RN Tamie Monk Patty Caballero aa4 Akua Chirinos RN RN Barry, Kemi, RN RN hb Billeau, Maria Fernanda sb2
[2018-08-08 14:14] VITALS: TEMP 97.9
[2018-08-08 14:19] VITALS: BP 129/69; O2SAT 97
== END 2018-08-08 14:01 | disposition left against medical advice (07) ==
LOC: ER 09:06
DX: R94.5 Abnormal results of liver function studies (principal); I10 Essential (primary) hypertension; Z88.0 Allergy status to penicillin
CPT/HCPCS: 36415; 74177; 76705; 80048; 80076; 83690; 85025; 86308; 87804 ×2; 96361; 96374; 99284; J2405; J7030; Q9967

== ENCOUNTER 2018-08-22 15:08 | Emergency (ER) | payer OTHER, MEDICAID ==
[2018-08-22] MEDS ORDERED: CODEINE 30MG/APAP 300MG TAB ONE (16:58)
--- NOTE | 2018-08-22 17:18 | RAD REPORT ---
EXAM DESCRIPTION: RAD - Ankle Left 3 View -08/22/2018 5:08 pm CLINICAL HISTORY: Left ankle pain status post injury FINDINGS: No acute fracture or dislocation is seen. Large spur extends off of the medial malleolus. Calcification the Achilles tendon suspected
--- NOTE | 2018-08-22 17:19 | RAD REPORT ---
EXAM DESCRIPTION: RAD - Knee Left 3 View - 08/22/2018 5:08 pm CLINICAL HISTORY: Left knee pain status post injury FINDINGS: Cortical regularity involves the lateral malleolus. This likely is degenerative in nature rather than a fracture as there does not appear to be a significant joint effusion. Moderate osteoarthritis. If patient continues have symptoms to suggest an occult fracture, ligamentous or meniscal injury MRI would be recommended
--- NOTE | 2018-08-22 17:33 | EDPHYS ---
Physician Documentation [facility] Name: Justina Yoo Age: 58 yrs Sex: Female : 1960 Arrival Date: 08/22/2018 Time: 15:09 Bed 14 Private MD: SOFIA WORLEY ED Physician Romie Serrato HPI: 08/22 16:25 This 58 yrs old Female presents to ER via Ambulatory with complaints of Fall pm1 Injury - LEG. 16:25 Details of fall: The patient fell from an upright position, while walking. Onset: The pm1 symptoms/episode began/occurred yesterday. Associated injuries: The patient sustained left medial ankle and left knee, painful injury. Severity of symptoms: in the emergency department the symptoms are unchanged. The patient has not experienced similar symptoms in the past. Patient walking and slipped on mud and landed on her left leg. She is able to walk on her left leg but has pain medial aspect of left knee and medial aspect of left ankle. Historical: - Allergies: 15:14 PENICILLINS; sv - PMHx: 15:14 Anxiety; Arthritis; Asthma; Depression; Diabetes - NIDDM; Hypertension; Thyroid problem;sv - Immunization history:: Adult Immunizations up to date. - Social history:: Smoking status: unknown. - Ebola Screening: : Patient negative for fever greater than or equal to 101.5 degrees Fahrenheit, and additional compatible Ebola Virus Disease symptoms Patient denies exposure to infectious person Patient denies travel to an Ebola-affected area in the 21 days before illness onset No symptoms or risks identified at this time. ROS: 17:31 Constitutional: Negative for fever, chills, and weight loss, Eyes: Negative for injury, pm1 pain, redness, and discharge, ENT: Negative for injury, pain, and discharge, Neck: Negative for injury, pain, and swelling, Cardiovascular: Negative for chest pain, palpitations, and edema, Respiratory: Negative for shortness of breath, cough, wheezing, and pleuritic chest pain, Abdomen/GI: Negative for abdominal pain, nausea, vomiting, diarrhea, and constipation, Back: Negative for injury and pain, : Negative for injury, bleeding, discharge, and swelling. 17:31 Skin: Negative for injury, rash, and discoloration, Neuro: Negative for headache, weakness, numbness, tingling, and seizure. 17:31 MS/extremity: Positive for pain, of the left knee and left medial ankle, Negative for decreased range of motion, deformity. Exam: 17:31 Constitutional: This is a well developed, well nourished patient who is awake, alert, pm1 and in no acute distress. Head/Face: Normocephalic, atraumatic. Eyes: Pupils equal round and reactive to light, extra-ocular motions intact. Lids and lashes normal. Conjunctiva and sclera are non-icteric and not injected. Cornea within normal limits. Periorbital areas with no swelling, redness, or edema. ENT: Nares patent. No nasal discharge, no septal abnormalities noted. Tympanic membranes are normal and external auditory canals are clear. Oropharynx with no redness, swelling, or masses, exudates, or evidence of obstruction, uvula midline. Mucous membranes moist. Neck: Trachea midline, no thyromegaly or masses palpated, and no cervical lymphadenopathy. Supple, full range of motion without nuchal rigidity, or vertebral point tenderness. No Meningismus. Chest/axilla: Normal chest wall appearance and motion. Nontender with no deformity. No lesions are appreciated. Cardiovascular: Regular rate and rhythm with a normal S1 and S2. No gallops, murmurs, or rubs. Normal PMI, no JVD. No pulse deficits. Respiratory: Lungs have equal breath sounds bilaterally, clear to auscultation and percussion. No rales, rhonchi or wheezes noted. No increased work of breathing, no retractions or nasal flaring. Abdomen/GI: Soft, non-tender, with normal bowel sounds. No distension or tympany. No guarding or rebound. No evidence of tenderness throughout. Back: No spinal tenderness. No costovertebral tenderness. Full range of motion. Skin: Warm, dry with normal turgor. Normal color with no rashes, no lesions, and no evidence of cellulitis. 17:31 Musculoskeletal/extremity: Extremities: grossly normal except: noted in the medial aspect of left knee and left medial ankle: tenderness, There is no evidence of swelling, ROM: intact in all extremities, Circulation is intact in all extremities. Vital Signs: 15:14 BP 112 / 37; Pulse 84; Resp 16; Temp 97; Pulse Ox 99% ; Weight 112.94 kg; Height 5 ft. sv 5 in. (165.10 cm); 16:55 BP 111 / 60; Pulse 72; Resp 18; Pulse Ox 99% on R/A; Pain 0/10; em 15:14 Body Mass Index 41.44 (112.94 kg, 165.10 cm) sv MDM: 16:22 Patient medically screened. pm1 17:31 Data reviewed: vital signs. Data interpreted: Pulse oximetry: on room air is 99 %. pm1 Interpretation: normal. Counseling: I had a detailed discussion with the patient and/or guardian regarding: the historical points, exam findings, and any diagnostic results supporting the discharge/admit diagnosis, radiology results, the need for outpatient follow up, to return to the emergency department if symptoms worsen or persist or if there are any questions or concerns that arise at home. 08/22 16:25 Order name: Knee Left 3 View XRAY; Complete Time: 17:23 pm1 08/22 16:25 Order name: Ankle Left 3 View XRAY; Complete Time: 17:23 pm1 08/22 17:43 Order name: Wilfrid wrap-joint; Complete Time: 17:55 pm1 Administered Medications: 16:50 Drug: Tylenol #3 (300 mg-30 mg) 1 tablet Route: PO; em 17:36 Follow up: Response: No adverse reaction; Pain is decreased em Disposition: 08/22/18 17:32 Discharged to Home. Impression: Pain in left knee, Sprain of unspecified ligament of left ankle. - Condition is Stable. - Discharge Instructions: Ankle Sprain, Knee Pain. - Prescriptions for Tylenol- Codeine #3 300-30 mg Oral Tablet - take 2 tablets by ORAL route every 6 hours As needed; 20 tablet. - Medication Reconciliation Form, Thank You Letter, Prescription Opioid Use form. - Follow up: Emergency Department; When: As needed; Reason: Worsening of condition. Follow up: Benji Sharif MD; When: 2 - 3 days; Reason: Recheck today's complaints, Continuance of care, Re-evaluation by your physician. - Problem is new. - Symptoms have improved. Addendum: 08/25/2018 07:00 Co-signature as Attending Physician, Romie Serrato MD I agree with the assessment and c green plan of care. Signatures: Dispatcher [employer] EDMS BenitezKaterin RN RN sv Anderson, Corey, MD MD cha Munoz, Edgar, CLASS A REGIONAL DRIVERS CLASS A REGIONAL DRIVERS em Lex iLma, BOX COVERING MACHINE OPERATOR BOX COVERING MACHINE OPERATOR pm1 Corrections: (The following items were deleted from the chart) 08/22 17:56 17:32 08/22/2018 17:32 Discharged to Home. Impression: Pain in left knee; Sprain of em unspecified ligament of left ankle. Condition is Stable. Forms are Medication Reconciliation Form, Thank You Letter, Antibiotic Education, Prescription Opioid Use. Follow up: Emergency Department; When: As needed; Reason: Worsening of condition. Follow up: Dr. Benji Sharif; When: 2 - 3 days; Reason: Recheck today's complaints, Continuance of care, Re-evaluation by your physician. Problem is new. Symptoms have improved. pm1
--- NOTE | 2018-08-22 17:33 | ER ---
Nurse's Notes [facility] Name: Justina Yoo Age: 58 yrs Sex: Female : 1960 Arrival Date: 08/22/2018 Time: 15:09 Bed 14 Private MD: SOFIA WORLEY Diagnosis: Pain in left knee;Sprain of unspecified ligament of left ankle Presentation: 08/22 15:12 Presenting complaint: Patient states: left leg pain started yesterday after falling sv onto it. Care prior to arrival: None. Mechanism of Injury: Fall from standing position. 15:12 Acuity: SARIKA 4 sv 15:12 Method Of Arrival: Ambulatory sv 15:13 Transition of care: patient was not received from another setting of care. Onset of sv symptoms was August 21, 2018. 16:50 Risk Assessment: Do you want to hurt yourself or someone else? Patient reports no em desire to harm self or others. Initial Sepsis Screen: Does the patient meet any 2 criteria? No. Patient's initial sepsis screen is negative. Does the patient have a suspected source of infection? No. Patient's initial sepsis screen is negative. Trauma Activation: Not Applicable Physician: ED Physician; Name: ; Notified At: ; Arrived At: Physician: General Surgeon; Name: ; Notified At: ; Arrived At: Physician: Radiology; Name: ; Notified At: ; Arrived At: Physician: Respiratory; Name: ; Notified At: ; Arrived At: Physician: Lab; Name: ; Notified At: ; Arrived At: Historical: - Allergies: 15:14 PENICILLINS; sv - PMHx: 15:14 Anxiety; Arthritis; Asthma; Depression; Diabetes - NIDDM; Hypertension; Thyroid problem;sv - Immunization history:: Adult Immunizations up to date. - Social history:: Smoking status: unknown. - Ebola Screening: : Patient negative for fever greater than or equal to 101.5 degrees Fahrenheit, and additional compatible Ebola Virus Disease symptoms Patient denies exposure to infectious person Patient denies travel to an Ebola-affected area in the 21 days before illness onset No symptoms or risks identified at this time. Screenin:55 Abuse screen: Denies threats or abuse. Nutritional screening: No deficits noted. em Tuberculosis screening: No symptoms or risk factors identified. Fall Risk None identified. Assessment: 16:50 General: Appears in no apparent distress. comfortable, Behavior is calm, cooperative. em Pain: Complains of pain in left knee Pain began 1 day ago. Neuro: Level of Consciousness is awake, alert, obeys commands, Oriented to person, place, time, situation. Cardiovascular: Capillary refill < 3 seconds Patient's skin is warm and dry. Respiratory: Airway is patent Respiratory effort is even, unlabored, Respiratory pattern is regular, symmetrical. GI: Abdomen is obese. Derm: Skin is intact, is healthy with good turgor, Skin is pink, warm \T\ dry. Musculoskeletal: Range of motion: intact in all extremities, Reports pain in left knee. 17:00 General: the previous assessment is accurate, call light remains within reach.. ss 17:36 Reassessment: Patient appears in no apparent distress at this time. Patient and/or em family updated on plan of care and expected duration. Pain level reassessed. Patient is alert, oriented x 3, equal unlabored respirations, skin warm/dry/pink. Patient denies pain at this time. Vital Signs: 15:14 BP 112 / 37; Pulse 84; Resp 16; Temp 97; Pulse Ox 99% ; Weight 112.94 kg; Height 5 ft. sv 5 in. (165.10 cm); 16:55 BP 111 / 60; Pulse 72; Resp 18; Pulse Ox 99% on R/A; Pain 0/10; em 15:14 Body Mass Index 41.44 (112.94 kg, 165.10 cm) sv ED Course: 15:09 Patient arrived in ED. sb2 15:11 SOFIA WORLEY is Private Physician. sb2 15:13 Triage completed. sv 15:14 Arm band placed on. sv 16:22 Lex Lima NP is PHCP. pm1 16:22 Romie Serrato MD is Attending Physician. pm1 16:31 Mario Alberto Huntley LVN is Primary Nurse. em 16:55 Patient has correct armband on for positive identification. Bed in low position. Call em light in reach. Adult w/ patient. 17:07 X-ray completed. Portable x-ray completed in exam room. Patient tolerated procedure ml well. 17:09 Knee Left 3 View XRAY In Process Unspecified. EDMS 17:09 Ankle Left 3 View XRAY In Process Unspecified. EDMS 17:32 Benji Sharif MD is Referral Physician. pm1 17:55 No provider procedures requiring assistance completed. Patient did not have IV access em during this emergency room visit. Administered Medications: 16:50 Drug: Tylenol #3 (300 mg-30 mg) 1 tablet Route: PO; em 17:36 Follow up: Response: No adverse reaction; Pain is decreased em Outcome: 17:32 Discharge ordered by MD. pm1 17:55 Discharged to home ambulatory, with family. em 17:55 Condition: good 17:55 Discharge instructions given to patient, family, Instructed on discharge instructions, follow up and referral plans. medication usage, Demonstrated understanding of instructions, follow-up care, medications, Prescriptions given X 2. 17:56 Patient left the ED. em Signatures: Dispatcher [employer] Katerin Joseph, RN RN Mario Alberto Davis, TRUST ADMINISTRATOR TRUST ADMINISTRATOR Norma Dimas Shelby, RN RN ss Marinas, Patrick, EDUCATIONAL ADMINISTRATION TEACHER EDUCATIONAL ADMINISTRATION TEACHER pm1 Maria Fernanda Garcia sb2
[2018-08-22 22:21] VITALS: TEMP 97; O2SAT 99
[2018-08-22 22:23] VITALS: BP 111/60
== END 2018-08-22 17:56 | disposition home or self-care (01) ==
LOC: ER 15:08
DX: S93.402A Sprain of unspecified ligament of left ankle, initial encounter (principal); W01.0XXA Fall on same level from slipping, tripping and stumbling without subsequent striking against object, initial encounter; Y93.01 Activity, walking, marching and hiking; Y92.9 Unspecified place or not applicable; Z88.0 Allergy status to penicillin; I10 Essential (primary) hypertension
CPT/HCPCS: 99283

== ENCOUNTER 2020-02-01 14:32 | Emergency (ER) | payer OTHER, MEDICAID ==
[2020-02-01 15:18] LABS: Absolute Lymphocytes (CBC) 1.5 K/uL (0.7-4.9); Basophils % 0.7 % (0-1.3); Hematocrit 44.8 % (36.0-45.0); Lymphocytes % 18.6 % (15.3-44.8); MPV 9.1 fL (7.6-11.3); RBC Red Blood Cell Count 5.23 M/uL (3.86-4.86)
--- NOTE | 2020-02-01 15:33 | RAD REPORT ---
EXAM DESCRIPTION: CT - Head Brain Wo Cont - 02/01/2020 3:20 pm CLINICAL HISTORY: DIZZINESS Headache, drowsiness COMPARISON: HEAD BRAIN W O CONTRAST dated 04/10/2008 TECHNIQUE: All CT scans are performed using dose optimization technique as appropriate and may inclu de automated exposure control or mA/KV adjustment according to patient size. FINDINGS: No intracranial hemorrhage, hydrocephalus or extra-axial fluid collection.Small calcificat ions are seen within the brain parenchyma, essentially unchanged since comparative study.No areas of brain edema or evidence of midline shift. Hyperostosis frontalis noted. A left-sided significant mastoid effusion is present. The calvarium is intact. IMPRESSION: No acute intracranial abnormality. Significant left-sided mastoid effusion.
--- NOTE | 2020-02-01 15:35 | RAD REPORT ---
EXAM DESCRIPTION: RAD - Chest Single View - 02/01/2020 3:29 pm CLINICAL HISTORY: SOB Chest pain. COMPARISON: Chest Single View dated 06/11/2018; Chest Single View dated 04/21/2018; Chest Single View dated 10/04/2016; CHEST SINGLE VIEW dated 02/26/2014 FINDINGS: Portable technique limits examination quality. Lungs appear underinflated but grossly clear. The heart is normal in size. No displaced fractures. IMPRESSION: No acute intrathoracic process suspected.
[2020-02-01 15:43] LABS: BUN Blood Urea Nitrogen 10 mg/dL (7-18); Bicarbonate 25 mmol/L (21-32); Glucose Level 112 mg/dL (74-106); Sodium Level 139 mmol/L (136-145); Troponin (Emerg Dept Use Only) < 0.02 ng/mL (0.0-0.045)
[2020-02-01 15:51] LABS: Potassium 4.2 mmol/L (3.5-5.1)
[2020-02-01 16:23] LABS: Urine Bacteria 20-50 /HPF (<20); Urine Culture Reflex Order REFLEXED; Urine RBC <5 /HPF (NONE SEEN)
[2020-02-01 16:25] LABS: Urine Blood TRACE (NEG); Urine Glucose NEGATIVE (NEG); Urine Protein NEGATIVE (NEG); Urine Specific Gravity 1.015 (1.005-1.030)
[2020-02-01] MEDS ORDERED: levoFLOXacin 750 MG TAB ONE (16:46)
[2020-02-01 16:49] VITALS: TEMP 98.3
[2020-02-01 16:50] VITALS: O2SAT 97
[2020-02-01 16:52] VITALS: BP 140/63
--- NOTE | 2020-02-03 06:13 | EKG ---
Test Date: 2020-02-01 Test Time: 15:32:20 Campus Recruiting Intern: ROBERTO MEASUREMENT RESULTS: Intervals: Rate: 78 OH: 148 QRSD: 88 QT: 400 QTc: 456 [place]: P: 50 OH: 148 QRS: 38 T: 44 INTERPRETIVE STATEMENTS: Normal sinus rhythm Nonspecific ST abnormality Abnormal ECG Compared to ECG 06/11/2018 21:16:58 ST (T wave) deviation now present Electronically Signed On 02-03-20 06:11:20 CDT by Saw Mathis
--- NOTE | 2020-02-08 12:24 | EDPHYS ---
Physician Documentation [facility] Name: Justina Yoo Age: 59 yrs Sex: Female : 1960 Arrival Date: 02/01/2020 Time: 14:33 Bed 5 Private MD: SOFIA WORLEY ED Physician Jeff Suarez HPI: 01/31 14:59 This 59 yrs old Female presents to ER via Ambulatory with complaints of rn Breathing Difficulty, dizziness, High Blood Pressure. 14:59 The patient presents with dizziness. rn 14:59 Onset: The symptoms/episode began/occurred 3 day(s) ago. Modifying factors: The rn symptoms are alleviated by nothing, the symptoms are aggravated by nothing. Severity of symptoms: At their worst the symptoms were mild in the emergency department the symptoms are unchanged. The patient has not experienced similar symptoms in the past. The patient has not recently seen a physician. Reports high blood pressure for 3 days, compliant with BP meds, no syncope/chest pain/abd pain. Reports generalized fatigue and dizziness, no focal neurological complaint. Reports hears "fluid in left ear", had sore throat yesterday, and feels like having acid reflux. no fever. . Historical: - Allergies: 14:44 PENICILLINS; hb - PMHx: 14:44 Anxiety; Diabetes - NIDDM; Depression; Asthma; Hypertension; Arthritis; Thyroid problem;hb - Immunization history:: Adult Immunizations up to date. - Social history:: Smoking status: Patient denies any tobacco usage or history of. - Family history:: not pertinent. - Hospitalizations: : No recent hospitalization is reported. ROS: 14:59 Constitutional: Negative for fever, chills, and weight loss, Eyes: Negative for injury, rn pain, redness, and discharge, Neck: Negative for injury, pain, and swelling, Cardiovascular: Negative for chest pain, palpitations, and edema, Respiratory: Negative for cough, wheezing, and pleuritic chest pain, Abdomen/GI: Negative for abdominal pain, nausea, vomiting, diarrhea, and constipation, MS/Extremity: Negative for injury and deformity, Skin: Negative for injury, rash, and discoloration, Neuro: Negative for headache, numbness, tingling, and seizure. Exam: 14:59 Constitutional: This is a well developed, well nourished patient who is awake, alert, rn and in no acute distress. Head/Face: Normocephalic, atraumatic. Eyes: Pupils equal round and reactive to light, extra-ocular motions intact. Neck: Trachea midline, no thyromegaly or masses palpated, and no cervical lymphadenopathy. Supple, full range of motion without nuchal rigidity, or vertebral point tenderness. No Meningismus. Cardiovascular: Regular rate and rhythm. No pulse deficits. Respiratory: No increased work of breathing, no retractions or nasal flaring. Abdomen/GI: soft, non-tender Skin: Warm, dry MS/ Extremity: Pulses equal, no cyanosis. Neurovascular intact. Full, normal range of motion. Equal circumference. Neuro: Awake and alert, GCS 15, oriented to person, place, time, and situation. Cranial nerves II-XII grossly intact. Motor strength 5/5 in all extremities. Sensory grossly intact. Cerebellar exam normal. Normal gait. 16:29 ECG was reviewed by the Attending Physician. rn Vital Signs: 14:42 BP 184 / 99; Pulse 78; Resp 16; Temp 98.3; Pulse Ox 99% on R/A; Pain 0/10; hb 15:50 BP 136 / 65; Pulse 88; Resp 19 S; Pulse Ox 97% on R/A; ca1 16:20 BP 140 / 63; Pulse 82; Resp 16 S; Pulse Ox 97% on R/A; ca1 MDM: 14:47 Patient medically screened. rn 16:29 Differential diagnosis: hypovolemia, idiopathic dizziness, vertigo, anxiety, rn mastoiditis, UTI, viral syndrome, HTN. Data reviewed: vital signs, nurses notes, lab test result(s), EKG, radiologic studies, CT scan, plain films, and as a result, I will discharge patient. 16:30 Counseling: I had a detailed discussion with the patient and/or guardian regarding: the rn historical points, exam findings, and any diagnostic results supporting the discharge/admit diagnosis, lab results, radiology results, the need for outpatient follow up, to return to the emergency department if symptoms worsen or persist or if there are any questions or concerns that arise at home. Response to treatment: the patient's symptoms have mildly improved after treatment, and as a result, I will discharge patient. Special discussion: I discussed with the patient/guardian in detail that at this point there is no indication for admission to the hospital. It is understood, however, that if the symptoms persist or worsen the patient needs to return immediately for re-evaluation. 01/31 14:58 Order name: CBC with Diff rn 01/31 14:58 Order name: Basic Metabolic Panel 01/31 14:58 Order name: Troponin (emerg Dept Use Only) 01/31 14:58 Order name: Urine Microscopic Only; Complete Time: 16:28 01/31 14:58 Order name: Flu rn 01/31 14:58 Order name: Strep rn 01/31 14:58 Order name: CT Head Brain wo Cont rn 01/31 15:33 Order name: CBC with Automated Diff; Complete Time: 16:23 EDMS 01/31 15:41 Order name: Influenza Screen (A ; Complete Time: 16:23 EDMS 01/31 15:41 Order name: Group A Streptococcus Rapid Sc; Complete Time: 16:23 EDMS 01/31 15:54 Order name: Basic Metabolic Panel; Complete Time: 16:23 EDMS 01/31 15:54 Order name: Troponin (Emerg Dept Use Only); Complete Time: 16:23 EDMS 01/31 16:06 Order name: Urine Dipstick--Ancillary (enter results) 01/31 16:29 Order name: Urine Dipstick-Ancillary; Complete Time: 16:30 EDVT 01/31 14:58 Order name: EKG; Complete Time: 15:02 01/31 14:58 Order name: EKG - Nurse/Tech; Complete Time: 15:17 01/31 14:58 Order name: Urine Dipstick-Ancillary (obtain specimen); Complete Time: 15:48 01/31 14:58 Order name: XRAY Chest (1 view) 01/31 15:46 Order name: CT; Complete Time: 16:23 EDMS 01/31 15:46 Order name: RAD; Complete Time: 16:23 EDMS EC:29 Rate is 78 beats/min. Rhythm is regular. QRS [place] is Normal. CA interval is normal. QRS rn interval is normal. QT interval is normal. No Q waves. T waves are Normal. No ST changes noted. Clinical impression: NSR w/ Non-specific ST/T Changes. Interpreted by me. Reviewed by me. Administered Medications: 16:41 Drug: LevaQUIN 750 mg Route: PO; ca1 16:41 Follow up: Response: Medication administered at discharge. ca1 Disposition: 02/01/20 16:34 Discharged to Home. Impression: Hypertension, Mastoid effusion. - Condition is Stable. - Discharge Instructions: Dizziness, Hypertension. - Prescriptions for Levaquin 500 mg Oral Tablet - take 1 tablet by ORAL route once daily for 10 days; 10 tablet. Doxycycline Monohydrate 100 mg Oral Tablet - take 1 tablet by ORAL route every 12 hours for 10 days; 20 tablet. - Medication Reconciliation Form, Thank You Letter, Antibiotic Education, Prescription Opioid Use form. - Follow up: Private Physician; When: 5 - 6 days; Reason: Recheck today's complaints, Re-evaluation by your physician. - Problem is new. - Symptoms have improved. Signatures: Dispatcher [employer] EDMS Jeff Suarez MD MD rn Baxter, Heather, RN RN Paula Bautista RN RN ca1 Corrections: (The following items were deleted from the chart) 16:43 16:34 02/01/2020 16:34 Discharged to Home. Impression: Hypertension; Mastoid effusion. ca1 Condition is Stable. Forms are Medication Reconciliation Form, Thank You Letter, Antibiotic Education, Prescription Opioid Use. Follow up: Private Physician; When: 5 - 6 days; Reason: Recheck today's complaints, Re-evaluation by your physician. Problem is new. Symptoms have improved. rn
--- NOTE | 2020-02-08 12:24 | ER ---
Nurse's Notes [facility] Name: Justina Yoo Age: 59 yrs Sex: Female : 1960 Arrival Date: 02/01/2020 Time: 14:33 Bed 5 Private MD: SOFIA WORLEY Diagnosis: Hypertension;Mastoid effusion Presentation: 01/31 14:42 Chief complaint: SOB x 3 days. Also reports dizziness and home SBP 150s. Denies hb cough/fever/CP. Coronavirus screen: Patient reports shortness of breath or difficulty breathing. mask placed on pt. Ebola Screen: No symptoms or risks identified at this time. Initial Sepsis Screen: Does the patient meet any 2 criteria? No. Patient's initial sepsis screen is negative. Does the patient have a suspected source of infection? No. Patient's initial sepsis screen is negative. Risk Assessment: Do you want to hurt yourself or someone else? Patient reports no desire to harm self or others. Onset of symptoms was January 30, 2020. 14:42 Method Of Arrival: Ambulatory hb 14:42 Acuity: SARIKA 3 hb Triage Assessment: 16:43 General: Appears. Respiratory: Respiratory:. ca1 Historical: - Allergies: 14:44 PENICILLINS; hb - PMHx: 14:44 Anxiety; Diabetes - NIDDM; Depression; Asthma; Hypertension; Arthritis; Thyroid problem;hb - Immunization history:: Adult Immunizations up to date. - Social history:: Smoking status: Patient denies any tobacco usage or history of. - Family history:: not pertinent. - Hospitalizations: : No recent hospitalization is reported. Screenin:13 Abuse screen: Denies threats or abuse. Denies injuries from another. Nutritional ca1 screening: No deficits noted. Tuberculosis screening: No symptoms or risk factors identified. Fall Risk IV access (20 points). Assessment: 15:13 General: Appears in no apparent distress. comfortable, Behavior is calm, cooperative, ca1 appropriate for age. General: reports High BP for 3 days. Pain: Complains of pain in left scapular area and left subscapular area Pain does not radiate. Pain currently is 5 out of 10 on a pain scale. Pain began 2-3 days ago. Neuro: Level of Consciousness is awake, alert, obeys commands, Oriented to person, place, time, situation. Cardiovascular: Heart tones S1 S2 present Capillary refill < 3 seconds Patient's skin is warm and dry. Cardiovascular: Denies chest pain. Respiratory: Airway is patent Respiratory effort is even, unlabored, Respiratory pattern is regular, symmetrical, Breath sounds are clear bilaterally. Denies cough. GI: Abdomen is round non-distended, Bowel sounds present X 4 quads. Abd is soft and non tender X 4 quads. Patient currently denies nausea, vomiting. : No signs and/or symptoms were reported regarding the genitourinary system. EENT: Throat is clear is pink bilaterally with gag reflex present. EENT: Reports pain in throat. Derm: Skin is intact, is healthy with good turgor, Skin is pink, warm \T\ dry. Musculoskeletal: Circulation, motion, and sensation intact. Capillary refill < 3 seconds. 15:49 Cardiovascular: Rhythm is sinus rhythm. ca1 16:20 Reassessment: Patient appears in no apparent distress at this time. Patient is alert, ca1 oriented x 3, equal unlabored respirations, skin warm/dry/pink. Vital Signs: 14:42 BP 184 / 99; Pulse 78; Resp 16; Temp 98.3; Pulse Ox 99% on R/A; Pain 0/10; hb 15:50 BP 136 / 65; Pulse 88; Resp 19 S; Pulse Ox 97% on R/A; ca1 16:20 BP 140 / 63; Pulse 82; Resp 16 S; Pulse Ox 97% on R/A; ca1 ED Course: 14:33 Patient arrived in ED. ag5 14:33 SOFIA WORLEY is Private Physician. ag5 14:43 Triage completed. hb 14:44 Arm band placed on. hb 14:45 Paula Bautista, RN is Primary Nurse. ca1 14:47 Jeff Suarez MD is Attending Physician. rn 15:12 Initial lab(s) drawn, by me, sent to lab. Missed attempt(s): 20 gauge in right ca1 antecubital area. Bleeding controlled, band aid applied, catheter tip intact. 15:13 Patient has correct armband on for positive identification. Placed in gown. Bed in low ca1 position. Call light in reach. Side rails up X 1. clinical research monitor on. Pulse ox on. NIBP on. Warm blanket given. 15:13 No provider procedures requiring assistance completed. ca1 16:42 Patient did not have IV access during this emergency room visit. ca1 Administered Medications: 16:41 Drug: LevaQUIN 750 mg Route: PO; ca1 16:41 Follow up: Response: Medication administered at discharge. ca1 Outcome: 16:34 Discharge ordered by . rn 16:42 Discharged to home ambulatory. ca1 16:42 Condition: stable 16:42 Discharge instructions given to patient, Instructed on discharge instructions, follow up and referral plans. Demonstrated understanding of instructions, follow-up care, medications, Prescriptions given X 2. 16:43 Patient left the ED. ca1 Signatures: Jeff Suarez MD MD rn Baxter, Heather, RN RN hb Acob, Cheryl, RN RN ca1 Katelin Lackey ag5
== END 2020-02-01 16:43 | disposition home or self-care (01) ==
LOC: ER 14:32
DX: H74.8X3 Other specified disorders of middle ear and mastoid, bilateral (principal); I10 Essential (primary) hypertension; Z88.0 Allergy status to penicillin
CPT/HCPCS: 36415; 70450; 71045; 80048; 81003; 81015; 84484; 85025; 87070; 87081; 87086; 87088; 87804; 93005; 99284

== ENCOUNTER 2020-02-27 09:21 | Emergency (ER) | payer OTHER ==
--- NOTE | 2020-02-27 10:36 | ER ---
Nurse's Notes [facility] Name: Justina Yoo Age: 59 yrs Sex: Female : 1960 Arrival Date: 02/27/2020 Time: 09:24 Bed 5 Private MD: Diagnosis: Shortness of breath;Myalgia Presentation: 02/26 09:41 Chief complaint: Patient states: neck/ upper back pain, headache and L ear pain that ss began yesterday. Denies cough/ fever. Coronavirus screen: Proceed with normal triage. Patient denies a cough. Patient denies shortness of breath or difficulty breathing. Patient denies measured and/or subjective temperature greater than 100.4F prior to today's visit. Patient denies travel on a cruise ship or to a country the [facility] currently lists as an affected area. Patient denies contact with known and/or suspected case of COVID-19. Ebola Screen: Patient denies exposure to infectious person. Patient denies travel to an Ebola-affected area in the 21 days before illness onset. Initial Sepsis Screen: Does the patient meet any 2 criteria? No. Patient's initial sepsis screen is negative. Does the patient have a suspected source of infection? No. Patient's initial sepsis screen is negative. Risk Assessment: Do you want to hurt yourself or someone else? Patient reports no desire to harm self or others. Onset of symptoms was February 26, 2020. 09:41 Method Of Arrival: Ambulatory ss 09:41 Acuity: SARIKA 3 ss Historical: - Allergies: 09:43 PENICILLINS; ss - PMHx: 09:43 Anxiety; Arthritis; Asthma; Depression; Diabetes - NIDDM; Hypertension; Thyroid problem;ss - Immunization history:: Adult Immunizations up to date. - Social history:: Smoking status: Patient denies any tobacco usage or history of. Screenin:00 Abuse screen: Denies threats or abuse. Nutritional screening: No deficits noted. em Tuberculosis screening: No symptoms or risk factors identified. Fall Risk None identified. Assessment: 10:00 General: Appears in no apparent distress. comfortable, Behavior is calm, cooperative, em appropriate for age, Denies fever. Pain: Denies pain. Neuro: Level of Consciousness is awake, alert, obeys commands, Oriented to person, place, time, situation, Appropriate for age. Cardiovascular: Capillary refill < 3 seconds Patient's skin is warm and dry. Rhythm is regular. Respiratory: Reports shortness of breath on exertion Airway is patent Respiratory effort is even, unlabored, Breath sounds are clear bilaterally. Denies cough. GI: Abdomen is obese, Patient currently denies diarrhea, nausea, vomiting. Derm: Skin is intact, is fragile, is thin, Skin is pink, warm \T\ dry. Musculoskeletal: Capillary refill < 3 seconds, Range of motion: intact in all extremities. Vital Signs: 09:41 BP 127 / 92; Pulse 62; Resp 16; Temp 97.0(TE); Pulse Ox 99% on R/A; Weight 117.93 kg; ss Height 5 ft. 0 in. (152.40 cm); Pain 5/10; 09:41 Body Mass Index 50.78 (117.93 kg, 152.40 cm) ED Course: 09:24 Patient arrived in ED. as 09:29 Katerin Marquis RN is Primary Nurse. sv 09:29 Arm band placed on. sv 09:43 Triage completed. ss 09:49 Ghulam Rogel MD is Attending Physician. kdr 09:53 Mario Alberto Huntley, TSERING is Primary Nurse. em 10:00 Patient has correct armband on for positive identification. Bed in low position. Call em light in reach. Adult w/ patient. 10:16 covid swab sent to lab. em 10:44 No provider procedures requiring assistance completed. Patient did not have IV access em during this emergency room visit. Administered Medications: No medications were administered Outcome: 10:36 Discharge ordered by . kdr 10:44 Discharged to home ambulatory. em 10:44 Condition: good 10:44 Discharge instructions given to patient, Instructed on discharge instructions, follow up and referral plans. Demonstrated understanding of instructions, follow-up care. 10:44 Patient left the ED. em Addendum: 03/01/2020 17:14 Addendum: Other pt notified of negative COVID-19 swab results. d m5 Signatures: Stacy Valdes, RN RN dm5 Katerin Marquis, TSERING CAGLE sv Ghulam Rogel MD MD kdr Mario Alberto Huntley RN RN Jenae Luke Shelby, RN RN
--- NOTE | 2020-02-27 10:36 | EDPHYS ---
Physician Documentation [facility] Name: Justina Yoo Age: 59 yrs Sex: Female : 1960 Arrival Date: 02/27/2020 Time: 09:24 Bed 5 Private MD: ED Physician Ghulam Rogel HPI: 02/26 09:30 This 59 yrs old Female presents to ER via Unassigned with complaints of snw Shortness Of Breath, Back Pain, Headache. 10:01 The patient has shortness of breath at rest, with light activity. Onset: The kdr symptoms/episode began/occurred gradually, yesterday. Duration: The symptoms are intermittent, with no pattern. The patient's shortness of breath is aggravated by coughing, exertion, light activity. Associated signs and symptoms: Pertinent positives: non-productive cough, dizziness. Severity of symptoms: At their worst the symptoms were mild in the emergency department the symptoms are unchanged. The patient has not experienced similar symptoms in the past. The patient has been recently seen by a physician: The patient had tympanostomy tubes recently placed (possibly by Dr. Monroy). Today, she c/o pain in her back, top of her head and a loud rushing noise to her left ear where she had the tube placed. She also c/o of rushing sound in the left ear where she had the tube placed.. Historical: - Allergies: 09:43 PENICILLINS; ss - PMHx: 09:43 Anxiety; Arthritis; Asthma; Depression; Diabetes - NIDDM; Hypertension; Thyroid problem;ss - Immunization history:: Adult Immunizations up to date. - Social history:: Smoking status: Patient denies any tobacco usage or history of. ROS: 10:01 Constitutional: Negative for fever, chills, and weight loss, Eyes: Negative for injury, kdr pain, redness, and discharge, Neck: Negative for injury, pain, and swelling, Cardiovascular: Negative for chest pain, palpitations, and edema, Abdomen/GI: Negative for abdominal pain, nausea, vomiting, diarrhea, and constipation, Back: Negative for injury and pain, : Negative for injury, bleeding, discharge, and swelling, MS/Extremity: Negative for injury and deformity, Skin: Negative for injury, rash, and discoloration, Neuro: Negative for headache, weakness, numbness, tingling, and seizure activity. Psych: Negative for depression, anxiety, suicide ideation, homicidal ideation, and hallucinations, Allergy/Immunology: Negative for hives, rash, and allergies, Endocrine: Negative for neck swelling, polydipsia, polyuria, polyphagia, and marked weight changes, Hematologic/Lymphatic: Negative for swollen nodes, abnormal bleeding, and unusual bruising. 10:01 ENT: Positive for Rushing sound in left ear. 10:01 Respiratory: Positive for shortness of breath. Exam: 10:01 Constitutional: This is a well developed, well nourished patient who is awake, alert, kdr and in no acute distress. Head/Face: Normocephalic, atraumatic. Eyes: Pupils equal round and reactive to light, extra-ocular motions intact. Lids and lashes normal. Conjunctiva and sclera are non-icteric and not injected. Cornea within normal limits. Periorbital areas with no swelling, redness, or edema. Neck: Trachea midline, no thyromegaly or masses palpated, and no cervical lymphadenopathy. Supple, full range of motion without nuchal rigidity, or vertebral point tenderness. No Meningismus. Chest/axilla: Normal chest wall appearance and motion. Nontender with no deformity. No lesions are appreciated. Cardiovascular: Regular rate and rhythm with a normal S1 and S2. No gallops, murmurs, or rubs. Normal PMI, no JVD. No pulse deficits. Respiratory: Lungs have equal breath sounds bilaterally, clear to auscultation and percussion. No rales, rhonchi or wheezes noted. No increased work of breathing, no retractions or nasal flaring. Abdomen/GI: Soft, non-tender, with normal bowel sounds. No distension or tympany. No guarding or rebound. No evidence of tenderness throughout. Back: No spinal tenderness. No costovertebral tenderness. Full range of motion. Skin: Warm, dry with normal turgor. Normal color with no rashes, no lesions, and no evidence of cellulitis. MS/ Extremity: Pulses equal, no cyanosis. Neurovascular intact. Full, normal range of motion. Neuro: Awake and alert, GCS 15, oriented to person, place, time, and situation. Cranial nerves II-XII grossly intact. Motor strength 5/5 in all extremities. Sensory grossly intact. Cerebellar exam normal. Normal gait. Psych: Awake, alert, with orientation to person, place and time. Behavior, mood, and affect are within normal limits. Vital Signs: 09:41 BP 127 / 92; Pulse 62; Resp 16; Temp 97.0(TE); Pulse Ox 99% on R/A; Weight 117.93 kg; ss Height 5 ft. 0 in. (152.40 cm); Pain 5/10; 09:41 Body Mass Index 50.78 (117.93 kg, 152.40 cm) ss MDM: 10:01 Data reviewed: vital signs, nurses notes. Counseling: I had a detailed discussion with kdr the patient and/or guardian regarding: the historical points, exam findings, and any diagnostic results supporting the discharge/admit diagnosis, the need for outpatient follow up. 10:36 Patient medically screened. [facility] 02/26 10:01 Order name: MEAGHAN-19: SOB with vague symptoms kdr Administered Medications: No medications were administered Disposition: 11:07 I agree with the assessment and plan of care. kdr Disposition: 02/27/20 10:36 Discharged to Home. Impression: Shortness of breath, Myalgia. - Condition is Stable. - Discharge Instructions: Nonspecific Chest Pain, Chest Wall Pain, Musculoskeletal Pain. - Medication Reconciliation Form, Thank You Letter form. - Follow up: Private Physician; When: 1 - 2 days; Reason: If symptoms return, Further diagnostic work-up, Recheck today's complaints, Continuance of care, Re-evaluation by your physician. - Problem is new. - Symptoms are unchanged. Signatures: Dispatcher [employer] Ghulam Pedroza MD MD [facility] Mary Mullen, DIAMOND SAW OPERATOR-C DIAMOND SAW OPERATOR-Csnw Mario Alberto Huntley, TSERING RN em Akua Chirinos RN RN ss Corrections: (The following items were deleted from the chart) 10:44 10:36 02/27/2020 10:36 Discharged to Home. Impression: Shortness of breath; Myalgia. em Condition is Stable. Forms are Medication Reconciliation Form, Thank You Letter, Antibiotic Education, Prescription Opioid Use. Follow up: Private Physician; When: 1 - 2 days; Reason: If symptoms return, Further diagnostic work-up, Recheck today's complaints, Continuance of care, Re-evaluation by your physician. Problem is new. Symptoms are unchanged. kdr
[2020-02-27 10:48] VITALS: BP 127/92; TEMP 97; O2SAT 99
== END 2020-02-27 10:44 | disposition home or self-care (01) ==
LOC: ER 09:21
DX: M79.10 Myalgia, unspecified site (principal); Z20.828 Contact with and (suspected) exposure to other viral communicable diseases; I10 Essential (primary) hypertension; Z88.0 Allergy status to penicillin
CPT/HCPCS: 99281; U0001

== ENCOUNTER 2020-07-11 05:36 | Emergency (ER) | payer OTHER ==
[2020-07-11 06:05] LABS: Absolute Lymphocytes (CBC) 1.7 K/uL (0.7-4.9); Basophils % 0.7 % (0-1.3); Hematocrit 42.2 % (36.0-45.0); Lymphocytes % 16.5 % (15.3-44.8); MPV 9.1 fL (7.6-11.3); RBC Red Blood Cell Count 4.97 M/uL (3.86-4.86)
[2020-07-11 06:19] LABS: Protime INR 0.96
[2020-07-11 06:31] LABS: ALT/SGPT 20 U/L (12-78); AST/SGOT 13 U/L (15-37); Albumin 3.8 g/dL (3.4-5.0); Alkaline Phosphatase 103 U/L (45-117); BUN Blood Urea Nitrogen 13 mg/dL (7-18); Bicarbonate 25 mmol/L (21-32); Bilirubin Direct 0.1 mg/dL (0-0.2); Bilirubin Total 0.6 mg/dL (0.2-1.0); Glucose Level 148 mg/dL (74-106); Magnesium 1.7 mg/dL (1.8-2.4); NT PRO-BNP 175 pg/mL (<125); Potassium 3.5 mmol/L (3.5-5.1); Protein, Total 7.3 g/dL (6.4-8.2); Sodium Level 139 mmol/L (136-145); Troponin (Emerg Dept Use Only) < 0.02 ng/mL (0.0-0.045)
[2020-07-11] MEDS ORDERED: MORPHINE 2 MG/ML SYR ONE (07:36)
[2020-07-11] MEDS ORDERED: ONDANSETRON 4 MG/2 ML VIAL ONE (07:36)
[2020-07-11] MEDS ORDERED: MAGNESIUM SULFATE 1 gm IVPB 1 GM/100 ML BAG IV ONE (08:23)
--- NOTE | 2020-07-11 08:39 | RAD REPORT ---
EXAM DESCRIPTION: CT - Chest For Pe Angio - 07/11/2020 8:18 am CLINICAL HISTORY: Chest pain. CHEST PAIN COMPARISON: CTANGIO CHEST FOR PE dated 02/26/2014 TECHNIQUE: CT angiogram of the pulmonary arteries was performed with MIP. All CT scans are performed using dose optimization technique as appropriate and may include automated exposure control or mA/KV adjustment according to patient size. FINDINGS: No evidence of pulmonary thromboembolism. No acute aortic finding demonstrated. The lungs are clear. No significant pericardial or pleural fluid. No concerning bony finding. IMPRESSION: No evidence of pulmonary thromboembolism. No acute lung findings.
[2020-07-11 09:39] LABS: Urine Blood TRACE (NEG); Urine Glucose NEGATIVE (NEG); Urine Protein NEGATIVE (NEG)
--- NOTE | 2020-07-11 10:06 | ER ---
Nurse's Notes [facility] Name: Justina Yoo Age: 60 yrs Sex: Female : 1960 Arrival Date: 07/11/2020 Time: 05:38 Bed 5 Private MD: Xochitl Funez C Diagnosis: Other chest pain;Dyspnea;Type 2 diabetes mellitus;Obesity, unspecified Presentation: 07/11 05:40 Chief complaint: Patient states: pt reports that starting last night she has had pain sg in her shoulders, upper back, and chest. reports shortness of breath as well that has worsened this morning, denies Fever/Chill/N/V/D at this time for triage. Coronavirus screen: Client denies travel out of the [place] in the last 14 days. Ebola Screen: Patient negative for fever greater than or equal to 101.5 degrees Fahrenheit, and additional compatible Ebola Virus Disease symptoms Patient denies exposure to infectious person. Patient denies travel to an Ebola-affected area in the 21 days before illness onset. No symptoms or risks identified at this time. Initial Sepsis Screen: Does the patient meet any 2 criteria? No. Patient's initial sepsis screen is negative. Does the patient have a suspected source of infection? No. Patient's initial sepsis screen is negative. Risk Assessment: Do you want to hurt yourself or someone else? Patient reports no desire to harm self or others. Onset of symptoms was July 11, 2020. Care prior to arrival: None. Transition of care: patient was not received from another setting of care. 05:40 Acuity: SARIKA 3 sg 05:40 Method Of Arrival: Ambulatory sg 05:43 Coronavirus screen: The client reports previous COVID testing was negative. Date of sg collection: February 27, 2020. Historical: - Allergies: 05:42 PENICILLINS; sg 05:42 Tetanus Vaccines \T\ Toxoid; sg - Home Meds: 06:02 albuterol sulfate 1.25 mg/3 mL Inhl nebu [Active]; amitriptyline 25 mg Oral tab 1 tab rr5 once daily [Active]; aspirin 81 mg Oral TbEC 1 tab once daily [Active]; carvedilol 6.25 mg Oral tab 1 tab 2 times per day [Active]; citalopram 40 mg tab 1 tab once daily [Active]; diclofenac potassium 75 mg Oral tab 1 cap 3 times per day [Active]; metformin 500 mg Oral Tb24 1 tab once daily [Active]; Levoxyl 125 mcg Oral tab 1 tab once daily [Active]; omeprazole 40 mg Oral cpDR 1 cap once daily [Active]; lisinopril 10 mg Oral tab 1 tab once daily [Active]; Synthroid 125 mcg Oral tab 1 tab once daily [Active]; Victoza 2-Patrick subcutaneous [Active]; - PMHx: 05:42 Anxiety; Arthritis; Asthma; Depression; Diabetes - NIDDM; Hypertension; Thyroid problem;sg - Immunization history:: Adult Immunizations up to date. - Social history:: Smoking status: Patient reports the use of cigarette tobacco products. Screenin:55 Abuse screen: Denies threats or abuse. Denies injuries from another. Nutritional rr5 screening: No deficits noted. Tuberculosis screening: No symptoms or risk factors identified. Fall Risk IV access (20 points). Mental Status- Oriented to own ability (0 pts). Assessment: 05:35 General: Appears in no apparent distress. uncomfortable, Behavior is calm, cooperative, rr5 appropriate for age. 05:35 Pain: Complains of pain in chest Pain radiates to back Pain currently is 10 out of 10 rr5 on a pain scale. Quality of pain is described as aching, Pain began gradually, Is intermittent. Neuro: Level of Consciousness is awake, alert, obeys commands, Oriented to person, place, time, situation. Cardiovascular: Reports chest pain, Capillary refill < 3 seconds Patient's skin is warm and dry. Respiratory: Reports shortness of breath Airway is patent Respiratory effort is even, unlabored, Respiratory pattern is regular, symmetrical. GI: No signs and/or symptoms were reported involving the gastrointestinal system. : No signs and/or symptoms were reported regarding the genitourinary system. EENT: No signs and/or symptoms were reported regarding the EENT system. Derm: Skin is intact, is healthy with good turgor, Skin temperature is warm. Musculoskeletal: Circulation, motion, and sensation intact. Capillary refill < 3 seconds. 06:15 Reassessment: Patient appears in no apparent distress at this time. Patient is alert, rr5 oriented x 3, equal unlabored respirations, skin warm/dry/pink. awaiting for results. 07:08 Reassessment: Dr. Gonzáles at bedside. jl7 07:45 Reassessment: Pt reports decreased pain, rated 1/10 at this time. jl7 08:00 Reassessment: Assisted pt to restroom via wheelchair, pt reports sob and appears sob on jl7 exertion, Dr. Serrato notified. 09:25 Reassessment: Patient appears in no apparent distress at this time. Patient and/or em family updated on plan of care and expected duration. Pain level reassessed. Patient is alert, oriented x 3, equal unlabored respirations, skin warm/dry/pink. 10:18 Reassessment: pt states she does not want to be admitted to the hospital, symptoms have em resolved, states it might had been an anxiety attack because she has a hx of them, states she also has to go home to take care of her son that has schizophrenia and does not want him to miss his daily medication, Dr. Serrato notified of pt request, she agrees to sign AMA form and will return if symptoms return. Vital Signs: 05:40 BP 164 / 52; Pulse 96; Resp 19; Temp 98.5; Pulse Ox 99% ; Weight 115.67 kg; Height 5 rr5 ft. (152.40 cm); Pain 8/10; 06:10 BP 144 / 57; Pulse 93; Resp 18; Pulse Ox 100% ; rr5 07:13 BP 128 / 64; Pulse 92; Resp 20; Pulse Ox 98% ; jl7 08:07 BP 134 / 61; Pulse 82; Resp 21; Pulse Ox 98% ; Pain 1/10; jl7 09:20 BP 112 / 52; Pulse 82; Resp 20; Pulse Ox 95% on R/A; em 10:22 BP 119 / 85; Pulse 78; Resp 18; Pulse Ox 99% on R/A; em 05:40 Body Mass Index 49.80 (115.67 kg, 152.40 cm) rr5 ED Course: 05:30 EKG done, by ED staff, reviewed by Fredo Gonzáles MD. rr5 05:38 Patient arrived in ED. am2 05:38 Xochitl Funez FNP is Private Physician. am2 05:40 Inserted saline lock: 20 gauge in right antecubital area, using aseptic technique. rr5 Blood collected. 05:41 Triage completed. sg 05:42 Arm band placed on. sg 05:50 Inserted saline lock: 20 gauge in left antecubital area, using aseptic technique. Blood ds4 collected. 05:51 Herbert Mayer RN is Primary Nurse. rr5 05:55 Patient has correct armband on for positive identification. Placed in gown. Bed in low rr5 position. Call light in reach. Side rails up X2. monitoring coordinator on. Pulse ox on. NIBP on. 05:59 No provider procedures requiring assistance completed. Patient maintains SpO2 rr5 saturation greater than 95% on room air. 06:18 Fredo Gonzáles MD is Attending Physician. 7 06:25 XRAY Chest (1 view) In Process Unspecified. EDMS 07:21 Primary Nurse role handed off by Herbert Mayer RN jl7 07:21 Mookie Martinez RN is Primary Nurse. jl7 08:01 Attending Physician role handed off by Fredo Gonzáles MD feli 08:01 Romie Serrato MD is Attending Physician. feli 08:18 CT Chest For PE Angio In Process Unspecified. EDMS 10:05 Rina Diaz MD is Hospitalizing Provider. feli 10:32 IV discontinued, intact, bleeding controlled, No redness/swelling at site. Pressure em dressing applied. Administered Medications: 07:24 Drug: Zofran (Ondansetron) 4 mg Route: IVP; Site: right antecubital; jl7 08:07 Follow up: Response: No adverse reaction jl7 07:26 Drug: morphine 2 mg Route: IVP; Site: right antecubital; jl7 07:45 Follow up: Response: No adverse reaction; Pain is decreased jl7 08:26 Drug: Magnesium Sulfate 1 grams Route: IVPB; Infused Over: 1 hrs; Site: right jl7 antecubital; 09:25 Follow up: Response: No adverse reaction; IV Status: Completed infusion; IV Intake: em 100ml 10:16 Drug: Aspirin 162 mg Route: PO; jl7 10:30 Follow up: Response: No adverse reaction em 10:16 Drug: Lovenox 100 mg Route: Sub-Q; Site: abdomen; jl7 10:30 Follow up: Response: No adverse reaction em Intake: 09:25 IV: 100ml; Total: 100ml. em Outcome: 10:06 Decision to Hospitalize by Provider. feli 10:32 AMA AMA form signed em 10:32 Condition: stable 10:32 Instructed on follow up and referral plans. Demonstrated understanding of instructions. 10:33 Patient left the ED. em Signatures: Dispatcher [employer] EDRoberto Sorto, RN RN Romie Ren MD MD cha Munoz, Edgar RN RN em William Gerard ds4 Mookie Martinez RN RN jl7 Patty Singer am2 Herbert Mayer RN RN rr5 Fredo Gonzáles MD MD 7 Corrections: (The following items were deleted from the chart) 05:56 05:30 EKG done, by ED staff, parth presley5 07:30 07:04 Zofran (Ondansetron) 4 mg IVP in right antecubital jl7 jl7 08:08 07:35 Reassessment: Pt reports decreased pain, rated 1/10 at this time. jl7 jl7
--- NOTE | 2020-07-11 10:07 | EDPHYS ---
Physician Documentation [facility] Name: Justina Yoo Age: 60 yrs Sex: Female : 1960 Arrival Date: 07/11/2020 Time: 05:38 Bed 5 Private MD: Xochitl Funez C ED Physician Romie Serrato HPI: 07/11 07:17 This 60 yrs old Female presents to ER via Ambulatory with complaints of Chest mh7 Pain, Breathing Difficulty. 07:17 The patient or guardian reports chest pain that is located primarily in the anterior mh7 chest wall, right. Onset: last night. The pain radiates to right back. Associated signs and symptoms: Pertinent positives: shortness of breath, Pertinent negatives: abdominal pain, cough, diaphoresis, dizziness, headache, lower extremity pain, lower extremity swelling, lightheadedness, nausea, near syncope, palpitations, recent travel, syncope, vomiting. The chest pain is described as a pressure. Duration: The patient or guardian reports multiple episodes, that are intermittent, that wax and wane, with no pattern. Modifying factors: The symptoms are alleviated by nothing. the symptoms are aggravated by nothing. Severity of pain: At its worst the pain was moderate last night, in the emergency department the pain is unchanged. Historical: - Allergies: 05:42 PENICILLINS; sg 05:42 Tetanus Vaccines \T\ Toxoid; sg - Home Meds: 06:02 albuterol sulfate 1.25 mg/3 mL Inhl nebu [Active]; amitriptyline 25 mg Oral tab 1 tab rr5 once daily [Active]; aspirin 81 mg Oral TbEC 1 tab once daily [Active]; carvedilol 6.25 mg Oral tab 1 tab 2 times per day [Active]; citalopram 40 mg tab 1 tab once daily [Active]; diclofenac potassium 75 mg Oral tab 1 cap 3 times per day [Active]; metformin 500 mg Oral Tb24 1 tab once daily [Active]; Levoxyl 125 mcg Oral tab 1 tab once daily [Active]; omeprazole 40 mg Oral cpDR 1 cap once daily [Active]; lisinopril 10 mg Oral tab 1 tab once daily [Active]; Synthroid 125 mcg Oral tab 1 tab once daily [Active]; Victoza 2-Patrick subcutaneous [Active]; - PMHx: 05:42 Anxiety; Arthritis; Asthma; Depression; Diabetes - NIDDM; Hypertension; Thyroid problem;sg - Immunization history:: Adult Immunizations up to date. - Social history:: Smoking status: Patient reports the use of cigarette tobacco products. ROS: 07:17 Constitutional: Negative for fever, chills, and weight loss, Eyes: Negative for injury, mh7 pain, redness, and discharge, ENT: Negative for injury, pain, and discharge, Neck: Negative for injury, pain, and swelling, Abdomen/GI: Negative for abdominal pain, nausea, vomiting, diarrhea, and constipation, : Negative for injury, bleeding, discharge, and swelling, MS/Extremity: Negative for injury and deformity, Skin: Negative for injury, rash, and discoloration, Neuro: Negative for headache, weakness, numbness, tingling, and seizure, Psych: Negative for depression, anxiety, suicide ideation, homicidal ideation, and hallucinations, Allergy/Immunology: Negative for hives, rash, and allergies, Endocrine: Negative for neck swelling, polydipsia, polyuria, polyphagia, and marked weight changes. Exam: 07:17 Constitutional: This is a well developed, well nourished patient who is awake, alert, mh7 and in no acute distress. Head/Face: Normocephalic, atraumatic. Eyes: Pupils equal round and reactive to light, extra-ocular motions intact. Lids and lashes normal. Conjunctiva and sclera are non-icteric and not injected. Cornea within normal limits. Periorbital areas with no swelling, redness, or edema. Neck: Trachea midline, no thyromegaly or masses palpated, and no cervical lymphadenopathy. Supple, full range of motion without nuchal rigidity, or vertebral point tenderness. No Meningismus. Chest/axilla: Normal chest wall appearance and motion. Nontender with no deformity. No lesions are appreciated. Cardiovascular: Regular rate and rhythm with a normal S1 and S2. No gallops, murmurs, or rubs. Normal PMI, no JVD. No pulse deficits. Respiratory: Lungs have equal breath sounds bilaterally, clear to auscultation and percussion. No rales, rhonchi or wheezes noted. No increased work of breathing, no retractions or nasal flaring. Abdomen/GI: Soft, non-tender, with normal bowel sounds. No distension or tympany. No guarding or rebound. No evidence of tenderness throughout. Back: No spinal tenderness. No costovertebral tenderness. Full range of motion. Skin: Warm, dry with normal turgor. Normal color with no rashes, no lesions, and no evidence of cellulitis. MS/ Extremity: Pulses equal, no cyanosis. Neurovascular intact. Full, normal range of motion. Neuro: Awake and alert, GCS 15, oriented to person, place, time, and situation. Cranial nerves II-XII grossly intact. Motor strength 5/5 in all extremities. Sensory grossly intact. Cerebellar exam normal. Normal gait. Psych: Awake, alert, with orientation to person, place and time. Behavior, mood, and affect are within normal limits. Vital Signs: 05:40 BP 164 / 52; Pulse 96; Resp 19; Temp 98.5; Pulse Ox 99% ; Weight 115.67 kg; Height 5 rr5 ft. (152.40 cm); Pain 8/10; 06:10 BP 144 / 57; Pulse 93; Resp 18; Pulse Ox 100% ; rr5 07:13 BP 128 / 64; Pulse 92; Resp 20; Pulse Ox 98% ; jl7 08:07 BP 134 / 61; Pulse 82; Resp 21; Pulse Ox 98% ; Pain 1/10; jl7 09:20 BP 112 / 52; Pulse 82; Resp 20; Pulse Ox 95% on R/A; em 10:22 BP 119 / 85; Pulse 78; Resp 18; Pulse Ox 99% on R/A; em 05:40 Body Mass Index 49.80 (115.67 kg, 152.40 cm) rr5 MDM: 07:16 Patient medically screened. 7 08:02 Patient medically screened. [facility] 07/11 05:51 Order name: Basic Metabolic Panel; Complete Time: 07:20 [facility] 07/11 05:51 Order name: CBC with Diff; Complete Time: 07:20 [facility] 07/11 05:51 Order name: LFT's; Complete Time: 07:20 [facility] 07/11 05:51 Order name: Magnesium; Complete Time: 07:20 [facility] 07/11 05:51 Order name: NT PRO-BNP; Complete Time: 07:20 [facility] 07/11 05:51 Order name: PT-INR; Complete Time: 07:20 [facility] 07/11 05:51 Order name: Troponin (emerg Dept Use Only); Complete Time: 07:20 [facility] 07/11 05:51 Order name: XRAY Chest (1 view) [facility] 07/11 07:56 Order name: CT Chest For PE Angio; Complete Time: 10:01 [facility] 07/11 08:04 Order name: Urine Dipstick--Ancillary (enter results); Complete Time: 10:01 07/11 05:51 Order name: EKG; Complete Time: 05:52 [facility] 07/11 05:51 Order name: Cardiac monitoring; Complete Time: 05:51 [facility] 07/11 05:51 Order name: EKG - Nurse/Tech; Complete Time: 05:51 [facility] 07/11 05:51 Order name: IV Saline Lock; Complete Time: 05:51 [facility] 07/11 05:51 Order name: Labs collected and sent; Complete Time: 05:51 [facility] 07/11 05:51 Order name: O2 Per Protocol; Complete Time: 05:52 [facility] 07/11 05:51 Order name: O2 Sat Monitoring; Complete Time: 05:52 [facility] 07/11 07:20 Order name: Urine Dipstick-Ancillary (obtain specimen); Complete Time: 08:26 [facility] Administered Medications: 07:24 Drug: Zofran (Ondansetron) 4 mg Route: IVP; Site: right antecubital; 7 08:07 Follow up: Response: No adverse reaction [facility] 07:26 Drug: morphine 2 mg Route: IVP; Site: right antecubital; 7 07:45 Follow up: Response: No adverse reaction; Pain is decreased [facility] 08:26 Drug: Magnesium Sulfate 1 grams Route: IVPB; Infused Over: 1 hrs; Site: right jl7 antecubital; 09:25 Follow up: Response: No adverse reaction; IV Status: Completed infusion; IV Intake: em 100ml 10:16 Drug: Aspirin 162 mg Route: PO; jl7 10:30 Follow up: Response: No adverse reaction em 10:16 Drug: Lovenox 100 mg Route: Sub-Q; Site: abdomen; jl7 10:30 Follow up: Response: No adverse reaction em Disposition: 07/11/20 10:22 Patient has left against medical advice. Impression: Other chest pain, Dyspnea, Type 2 diabetes mellitus, Obesity, unspecified. - Patients states they are going to Home. - Condition is Undetermined. - Discharge Instructions: Nonspecific Chest Pain, Type 2 Diabetes Mellitus, Diagnosis, Adult, Obesity, Adult, Shortness of Breath, Shortness of Breath, [id number], Nonspecific Chest Pain, [id number], Aspirin and Your Heart, Type 2 Diabetes Mellitus, Diagnosis, Adult, [id number]. Follow up: Private Physician; When: Upon discharge from the Emergency Department; Reason: Recheck today's complaints, Continuance of care, Re-evaluation by your physician. - Problem is new. - Symptoms have improved. Signatures: Dispatcher [employer] EDRoberto Sorto RN Romie Gonzalez MD MD cha Munoz, Edgar RN RN Mookie Cherry RN RN jl7 Herbert Mayer RN RN rr5 Fredo Gonzáles MD MD mh7 Corrections: (The following items were deleted from the chart) 10:06 10:06 Hospitalization Ordered by Rina Diaz MD for Observation. Preliminary [facility] diagnosis is Chest pain, unspecified; Dyspnea; Type 2 diabetes mellitus; Obesity, unspecified. Bed requested for Telemetry/MedSurg (observation). Status is Observation. Condition is Stable. Problem is new. Symptoms have improved. feli 10:21 10:06 07/11/2020 10:06 Hospitalization Ordered by Rina Diaz MD for Observation. [facility] Preliminary diagnosis is Chest pain, unspecified; Dyspnea; Type 2 diabetes mellitus; Obesity, unspecified; Hypomagnesemia. Bed requested for Telemetry/MedSurg (observation). Status is Observation. Condition is Stable. Problem is new. Symptoms have improved. flei 10:33 10:22 07/11/2020 10:22 Patients has left against medical advice. Impression: Other em chest pain; Dyspnea; Type 2 diabetes mellitus; Obesity, unspecified. Patient states they are going to Home. Condition is Undetermined. Follow up: Private Physician; When: Upon discharge from the Emergency Department; Reason: Recheck today's complaints, Continuance of care, Re-evaluation by your physician. Problem is new. Symptoms have improved. feli
[2020-07-11] MEDS ORDERED: ASPIRIN 81 MG CHEWABLE TABLET ONE (10:25)
[2020-07-11] MEDS ORDERED: ENOXAPARIN 100 MG/ML SYR SQ ONE (10:25)
--- NOTE | 2020-07-11 10:45 | RAD REPORT ---
EXAM DESCRIPTION: XR Chest, 1 View CLINICAL HISTORY: CHEST PAIN TECHNIQUE: Frontal view of the chest. COMPARISON: No relevant prior studies available. FINDINGS: Lungs: Shallow inspiration with mild basilar vascular crowding noted. No consolidation . Pleural space: No pneumothorax or pleural effusion. Heart: Normal cardiac size and configuration. Mediastinum: No abnormality noted. Bones/joints: No osseous destruction or sclerosis noted. IMPRESSION: Shallow inspiration with mild basilar vascular crowding noted. No consolidation. Electronically signed by: Feli Rosa MD 07/11/2020 6:36 AM SEWER BUILDER Due to temporary technical issues with the PACS/Fluency reporting system, reports are being signed by the in house radiologist without review as a courtesy to ensure prompt reporting. The interpreting r adiologist is fully responsible for the content of the report.
[2020-07-11 10:54] VITALS: TEMP 98.5
[2020-07-11 11:04] VITALS: BP 119/85; O2SAT 99
--- NOTE | 2020-07-13 07:20 | EKG ---
Test Date: 2020-07-11 Test Time: 06:43:57 Automatic Lathe Setter: RR MEASUREMENT RESULTS: Intervals: Rate: 105 [place]: 210 QRSD: 86 QT: 346 QTc: 457 [place]: P: 54 [place]: 210 QRS: 50 T: 54 INTERPRETIVE STATEMENTS: Sinus tachycardia with 1st degree AV block Otherwise normal ECG Compared to ECG 02/01/2020 15:32:20 First degree AV block now present Sinus rhythm no longer present ST (T wave) deviation no longer present Electronically Signed On 07-13-20 07:16:32 WALL SCRAPER by Saw Mathis
== END 2020-07-11 10:33 | disposition left against medical advice (07) ==
LOC: ER 05:36
DX: R06.00 Dyspnea, unspecified (principal); E11.9 Type 2 diabetes mellitus without complications; E66.9 Obesity, unspecified; F17.210 Nicotine dependence, cigarettes, uncomplicated; I10 Essential (primary) hypertension; F41.8 Other specified anxiety disorders; E07.9 Disorder of thyroid, unspecified; Z79.4 Long term (current) use of insulin; Z79.82 Long term (current) use of aspirin; Z88.0 Allergy status to penicillin; Z88.7 Allergy status to serum and vaccine
CPT/HCPCS: 96365; 93005; 85025; 80048; 36415; 83735; 85610; 80076; 81003; 84484; 83880; 71275; 71045; 96375; 96372; 99285; Q9967; J3475; J1650; J2270; J2405

== ENCOUNTER 2021-01-02 20:10 | Emergency (ER) | payer OTHER ==
--- NOTE | 2021-01-02 21:04 | ER ---
Nurse's Notes [facility] Name: Justina Yoo Age: 60 yrs Sex: Female : 1960 Arrival Date: 01/02/2021 Time: 20:17 Bed Waiting Private MD: Diagnosis: Presentation: 01/02 20:53 Chief complaint: Patient states: pain on the L side of head, L side of neck x 1 week. ca1 Denies N/V. Reports dizziness. Coronavirus screen: Client denies travel out of the [place] in the last 14 days. At this time, the client does not indicate any symptoms associated with coronavirus-19. Ebola Screen: Patient negative for fever greater than or equal to 101.5 degrees Fahrenheit, and additional compatible Ebola Virus Disease symptoms Patient denies exposure to infectious person. Patient denies travel to an Ebola-affected area in the 21 days before illness onset. No symptoms or risks identified at this time. Initial Sepsis Screen: Does the patient meet any 2 criteria? No. Patient's initial sepsis screen is negative. Does the patient have a suspected source of infection? No. Patient's initial sepsis screen is negative. Risk Assessment: Do you want to hurt yourself or someone else? Patient reports no desire to harm self or others. Onset of symptoms was January 02, 2021. 20:53 Method Of Arrival: Ambulatory ca1 20:53 Acuity: SARIKA 3 ca1 Historical: - Allergies: 20:57 PENICILLINS; ca1 20:57 Tetanus Vaccines \T\ Toxoid; ca1 - Home Meds: 20:57 albuterol sulfate 1.25 mg/3 mL Inhl nebu [Active]; amitriptyline 25 mg Oral tab 1 tab ca1 once daily [Active]; aspirin 81 mg Oral TbEC 1 tab once daily [Active]; carvedilol 6.25 mg Oral tab 1 tab 2 times per day [Active]; citalopram 40 mg tab 1 tab once daily [Active]; diclofenac potassium 75 mg Oral tab 1 cap 3 times per day [Active]; Levoxyl 125 mcg Oral tab 1 tab once daily [Active]; lisinopril 10 mg Oral tab 1 tab once daily [Active]; metformin 500 mg Oral Tb24 1 tab once daily [Active]; omeprazole 40 mg Oral cpDR 1 cap once daily [Active]; Synthroid 125 mcg Oral tab 1 tab once daily [Active]; Victoza 2-Patrick subcutaneous [Active]; - PMHx: 20:57 Anxiety; Arthritis; Asthma; Depression; Diabetes - NIDDM; Hypertension; Thyroid problem;ca1 - PSHx: 20:57 ; ca1 - Immunization history:: Client reports receiving the 1st dose of the Covid vaccine, Flu vaccine is up to date. - Social history:: Smoking status: Patient denies any tobacco usage or history of. Vital Signs: 20:53 BP 147 / 74; Pulse 84; Resp 18 S; Temp 97.1; Pulse Ox 100% on R/A; Weight 120.2 kg (R); ca1 Height 5 ft. 0 in. (152.40 cm) (R); Pain 8/10; 20:53 Body Mass Index 51.75 (120.20 kg, 152.40 cm) ca1 ED Course: 20:17 Patient arrived in ED. ag3 20:56 Triage completed. ca1 20:57 Arm band placed on right wrist. ca1 Administered Medications: No medications were administered Outcome: 21:04 Patient left the ED. ca1 Signatures: Eva Lopez ag3 Paula Bautista, RN RN ca1
[2021-01-02 21:19] VITALS: BP 147/74; TEMP 97.1; O2SAT 100
== END 2021-01-02 21:04 | disposition left against medical advice (07) ==
LOC: ER 20:10
DX: Z53.21 Procedure and treatment not carried out due to patient leaving prior to being seen by health care provider (principal)
CPT/HCPCS: 99281

== ENCOUNTER 2021-01-03 09:07 | Emergency (ER) | payer OTHER ==
--- NOTE | 2021-01-03 09:43 | ER ---
Nurse's Notes [facility] Name: Justina Yoo Age: 60 yrs Sex: Female : 1960 Arrival Date: 01/03/2021 Time: 09:09 Bed 8 Private MD: Diagnosis: Otitis media, unspecified, right ear Presentation: 01/03 09:17 Chief complaint: Patient states: LEFT EAR PAIN RADIATING TO NECK x2 WK. Coronavirus bp screen: At this time, the client does not indicate any symptoms associated with coronavirus-19. Ebola Screen: No symptoms or risks identified at this time. Initial Sepsis Screen: Does the patient meet any 2 criteria? No. Patient's initial sepsis screen is negative. Does the patient have a suspected source of infection? No. Patient's initial sepsis screen is negative. Risk Assessment: Do you want to hurt yourself or someone else? Patient reports no desire to harm self or others. Onset of symptoms is unknown. 09:17 Method Of Arrival: Ambulatory bp 09:17 Acuity: SARIKA 4 bp Triage Assessment: 09:19 General: Appears in no apparent distress. uncomfortable, obese, Behavior is calm, bp cooperative, appropriate for age. Pain: Complains of pain in left ear. EENT: Reports pain in left ear. Neuro: No deficits noted. Cardiovascular: No deficits noted. Respiratory: No deficits noted. GI: No signs and/or symptoms were reported involving the gastrointestinal system. : No signs and/or symptoms were reported regarding the genitourinary system. Derm: No deficits noted. Musculoskeletal: No deficits noted. Historical: - Allergies: 09:19 Tetanus Vaccines \T\ Toxoid; bp 09:19 PENICILLINS; bp - Home Meds: 09:19 lisinopril 10 mg Oral tab 1 tab once daily [Active]; metformin 500 mg Oral Tb24 1 tab bp once daily [Active]; - PMHx: 09:19 Anxiety; Arthritis; Asthma; Depression; Diabetes - NIDDM; Hypertension; Thyroid problem;bp - Immunization history:: Adult Immunizations up to date. - Social history:: Smoking status: Patient denies any tobacco usage or history of. Screenin:20 Abuse screen: Denies threats or abuse. Denies injuries from another. Nutritional bp screening: No deficits noted. Tuberculosis screening: No symptoms or risk factors identified. Fall Risk None identified. Assessment: 09:20 General: SEE TRIAGE NOTE. bp 10:11 Reassessment: PT D/C HOME AMBULATORY, DX WITH OTITIS MEDIA. bp Vital Signs: 09:17 BP 140 / 69; Pulse 68; Resp 17; Temp 97.8; Pulse Ox 100% ; Weight 122.47 kg; Height 5 bp ft. (152.40 cm); 09:50 BP 134 / 64; Pulse 66; Resp 17; Temp 97.5; Pulse Ox 99% ; bp 09:17 Body Mass Index 52.73 (122.47 kg, 152.40 cm) bp ED Course: 09:09 Patient arrived in ED. as 09:11 John Napoles, RN is Primary Nurse. bp 09:18 Triage completed. bp 09:19 Arm band placed on. bp 09:20 Patient has correct armband on for positive identification. Bed in low position. Call bp light in reach. Side rails up X2. 09:30 Gorge Gooden MD is Attending Physician. tw4 10:11 No provider procedures requiring assistance completed. Patient did not have IV access bp during this emergency room visit. Administered Medications: 09:50 Drug: Motrin (ibuprofen) 600 mg Route: PO; bp 10:11 Follow up: Response: No adverse reaction bp 09:50 Drug: Cleocin (clindamycin) 300 mg Route: PO; bp 10:10 Follow up: Response: No adverse reaction bp Outcome: 09:42 Discharge ordered by . tw4 10:11 Discharged to home ambulatory. bp 10:11 Condition: stable 10:11 Discharge instructions given to patient, Instructed on discharge instructions, follow up and referral plans. medication usage, Demonstrated understanding of instructions, follow-up care, medications, Prescriptions given X 2. 10:12 Patient left the ED. bp Signatures: Jenae Luke as John Napoles, RN RN bp Gorge Gooden MD MD tw4
--- NOTE | 2021-01-03 09:43 | EDPHYS ---
Physician Documentation [facility] Name: Justina Yoo Age: 60 yrs Sex: Female : 1960 Arrival Date: 01/03/2021 Time: 09:09 Bed 8 Private MD: ED Physician Gorge Gooden Historical: - Allergies: 01/03 09:19 Tetanus Vaccines \T\ Toxoid; bp 09:19 PENICILLINS; bp - Home Meds: 09:19 lisinopril 10 mg Oral tab 1 tab once daily [Active]; metformin 500 mg Oral Tb24 1 tab bp once daily [Active]; - PMHx: 09:19 Anxiety; Arthritis; Asthma; Depression; Diabetes - NIDDM; Hypertension; Thyroid problem;bp - Immunization history:: Adult Immunizations up to date. - Social history:: Smoking status: Patient denies any tobacco usage or history of. Vital Signs: 09:17 BP 140 / 69; Pulse 68; Resp 17; Temp 97.8; Pulse Ox 100% ; Weight 122.47 kg; Height 5 bp ft. (152.40 cm); 09:50 BP 134 / 64; Pulse 66; Resp 17; Temp 97.5; Pulse Ox 99% ; bp 09:17 Body Mass Index 52.73 (122.47 kg, 152.40 cm) bp MDM: 09:33 Patient medically screened. tw4 Administered Medications: 09:50 Drug: Motrin (ibuprofen) 600 mg Route: PO; bp 10:11 Follow up: Response: No adverse reaction bp 09:50 Drug: Cleocin (clindamycin) 300 mg Route: PO; bp 10:10 Follow up: Response: No adverse reaction bp Disposition: 01/03/21 09:42 Discharged to Home. Impression: Otitis media, unspecified, right ear. - Condition is Stable. - Discharge Instructions: Otitis Media, Adult. - Prescriptions for Cleocin 300 mg Oral Capsule - take 1 capsule by ORAL route every 6 hours for 10 days; 40 capsule. Ibuprofen 600 mg Oral Tablet - take 1 tablet by ORAL route every 6 hours As needed take with food; 30 tablet. - Medication Reconciliation Form, Thank You Letter, Antibiotic Education, Prescription Opioid Use form. - Follow up: Private Physician; When: Upon discharge from the Emergency Department; Reason: Recheck today's complaints, Continuance of care, Re-evaluation by your physician. - Problem is new. - Symptoms have improved. Addendum: 01/31/2021 05:17 Addendum: HPI: Pt is a 60 year old female that comes to the ED with complaint of left t w4 ear pain for 2 weeks. Pt states that the pain radiates to her neck. Pt denies fevers or chills. Pt denies hearing loss or drainage. Addendum: ROS: HEENT: Positive for ear pain negative for ear drainage, negative for hearing loss, sore throat, dysphagia, trismus, dental pain. All other systems negative except as marked. 05:20 Addendum: PE: Gen: well developed well nourished female in NAD HEENT: PERRLA EOMI Left t w4 TM red, loss of landmarks, dull, oropharynx normal. Neck: supple no meningeal signs, no lymphadenopathy . Signatures: John Napoles RN RN Gorge Khan MD MD tw4 Corrections: (The following items were deleted from the chart) 01/03 10:12 09:42 01/03/2021 09:42 Discharged to Home. Impression: Otitis media, unspecified, right bp ear. Condition is Stable. Forms are Medication Reconciliation Form, Thank You Letter, Antibiotic Education, Prescription Opioid Use. Follow up: Private Physician; When: Upon discharge from the Emergency Department; Reason: Recheck today's complaints, Continuance of care, Re-evaluation by your physician. Problem is new. Symptoms have improved. tw4
[2021-01-03 10:19] VITALS: BP 134/64; TEMP 97.5; O2SAT 99
[2021-01-03] MEDS ORDERED: IBUPROFEN 400 MG TAB ONE (10:25)
== END 2021-01-03 10:12 | disposition home or self-care (01) ==
LOC: ER 09:07
DX: H66.91 Otitis media, unspecified, right ear (principal); F41.9 Anxiety disorder, unspecified; J45.909 Unspecified asthma, uncomplicated; M19.90 Unspecified osteoarthritis, unspecified site; F32.9 Major depressive disorder, single episode, unspecified; E11.9 Type 2 diabetes mellitus without complications; I10 Essential (primary) hypertension; Z79.84 Long term (current) use of oral hypoglycemic drugs; E07.9 Disorder of thyroid, unspecified
CPT/HCPCS: 99283

== ENCOUNTER 2021-03-15 15:53 | Emergency (ER) | payer OTHER ==
--- NOTE | 2021-03-15 17:21 | RAD REPORT ---
EXAM DESCRIPTION: RAD - Ribs Left - 03/15/2021 5:11 pm CLINICAL HISTORY: Rib pain FINDINGS: A fracture is not visualized
--- NOTE | 2021-03-15 17:22 | RAD REPORT ---
EXAM DESCRIPTION: Isabela Single View03/15/2021 5:11 pm CLINICAL HISTORY: Rib COMPARISON: 2019 FINDINGS: The lungs appear clear of acute infiltrate. The heart is normal size IMPRESSION: No acute abnormalities displayed
--- NOTE | 2021-03-15 17:35 | ER ---
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 L rib cage pain ll1 since, worse with deep breathing. No LOC or head injury. No blood thinners. Coronavirus screen: Client denies travel out of the [place] in the last 14 days. At this time, the client does not indicate any symptoms associated with coronavirus-19. Ebola Screen: Patient denies travel to an Ebola-affected area in the 21 days before illness onset. Initial Sepsis Screen: Does the patient meet any 2 criteria? No. Patient's initial sepsis screen is negative. Does the patient have a suspected source of infection? Yes: Bone or joint infection. Risk Assessment: Do you want to hurt yourself or someone else? Patient reports no desire to harm self or others. Onset of symptoms was March 15, 2021. 16:09 Method Of Arrival: Ambulatory ll1 16:09 Acuity: SARIKA 4 ll1 Historical: - Allergies: 16:10 PENICILLINS; ll1 16:10 Tetanus Vaccines and Toxoid; ll1 - PMHx: 16:10 Anxiety; Arthritis; Asthma; Depression; Diabetes - NIDDM; Hypertension; Thyroid problem;ll1 - PSHx: 16:10 section; ll1 - Immunization history:: Client reports receiving the 2nd dose of the Covid vaccine, Flu vaccine is not up to date. - Social history:: Smoking status: Patient denies any tobacco usage or history of. Screenin:20 Abuse screen: Denies threats or abuse. Denies injuries from another. Nutritional ca1 screening: No deficits noted. Tuberculosis screening: No symptoms or risk factors identified. Fall Risk Fall in past 12 months (25 points). Assessment: 17:20 General: Appears in no apparent distress. comfortable, Behavior is calm, cooperative, ca1 appropriate for age. Pain: Complains of pain in L ribcage Pain currently is 4 out of 10 on a pain scale. Pain began 3 hours ago. Neuro: Level of Consciousness is awake, alert, obeys commands, Oriented to person, place, time, situation. Cardiovascular: Heart tones S1 S2 present Capillary refill < 3 seconds Patient's skin is warm and dry. EENT:. Derm: Skin is intact, is healthy with good turgor, Skin is pink, warm \T\ dry. Musculoskeletal: Circulation, motion, and sensation intact. Capillary refill < 3 seconds. 17:48 Reassessment: Patient appears in no apparent distress at this time. Patient is alert, ca1 oriented x 3, equal unlabored respirations, skin warm/dry/pink. Vital Signs: 16:09 BP 143 / 59; Pulse 74; Resp 17; Temp 97.9; Pulse Ox 100% ; Weight 122.47 kg; Height 5 ll1 ft. 0 in. (152.40 cm); Pain 4/10; 17:48 BP 139 / 62; Pulse 71; Resp 16 S; Pulse Ox 100% on R/A; ca1 16:09 Body Mass Index 52.73 (122.47 kg, 152.40 cm) ll1 ED Course: 15:55 Patient arrived in ED. ds1 16:10 Triage completed. ll1 16:10 Arm band placed on. ll1 16:14 [facility] kb 16:14 Ghulam Rogel MD is Attending Physician. kb 16:49 Paula Bautista, TSERING is Primary Nurse. ca1 16:50 Patient placed in an exam room, on a stretcher. ll1 17:10 Ribs Left XRAY In Process Unspecified. EDMS 17:11 Chest Single View XRAY In Process Unspecified. EDMS 17:20 Patient has correct armband on for positive identification. Bed in low position. Call ca1 light in reach. Side rails up X 1. Pulse ox on. NIBP on. Warm blanket given. 17:49 No provider procedures requiring assistance completed. Patient did not have IV access ca1 during this emergency room visit. Administered Medications: 17:37 Drug: Ketorolac 30 mg Route: IM; Site: right deltoid; ca1 17:48 Follow up: Response: No adverse reaction; Pain is decreased ca1 Outcome: 17:35 Discharge ordered by . kb 17:49 Discharged to home ambulatory. ca1 17:49 Condition: stable 17:49 Discharge instructions given to patient, Instructed on discharge instructions, follow up and referral plans. medication usage, Demonstrated understanding of instructions, follow-up care, medications, Prescriptions given X 1. 17:49 Patient left the ED. ca1 Signatures: Dispatcher [employer] ED[facility] Cuca Bustamante, DESTINEE-Riya FELIPE-Joleen Mccann ds1 Paula Bautista RN RN ca1 Teagan Pereyra RN RN ll1
--- NOTE | 2021-03-15 17:35 | EDPHYS ---
Physician Documentation [facility] Name: Justina Yoo Age: 60 yrs Sex: Female : 1960 Arrival Date: 03/15/2021 Time: 15:55 Bed 23 Private MD: ED Physician Ghulam Rogel HPI: 03/15 20:30 This 60 yrs old Female presents to ER via Ambulatory with complaints of Side kb Pain. 20:30 The patient has not experienced similar symptoms in the past. kb 20:30 Details of fall: The patient fell from an upright position, while walking. Onset: The kb symptoms/episode began/occurred just prior to arrival. Associated injuries: The patient sustained injury to the chest, pain with breathing, pain with movement, tenderness. Severity of symptoms: At their worst the symptoms were moderate, in the emergency department the symptoms are unchanged. The patient has not recently seen a physician. Pt reports she slipped, fell and landed on left side today. c/o pain to left ribs, worse with deep inspiration. Historical: - Allergies: 16:10 PENICILLINS; ll1 16:10 Tetanus Vaccines and Toxoid; ll1 - PMHx: 16:10 Anxiety; Arthritis; Asthma; Depression; Diabetes - NIDDM; Hypertension; Thyroid problem;ll1 - PSHx: 16:10 section; ll1 - Immunization history:: Client reports receiving the 2nd dose of the Covid vaccine, Flu vaccine is not up to date. - Social history:: Smoking status: Patient denies any tobacco usage or history of. ROS: 20:29 Constitutional: Negative for fever, chills, and weight loss. kb 20:29 Cardiovascular: Positive for chest pain, with movement, of the left lateral anterior chest. 20:29 All other systems are negative. Exam: 20:29 Constitutional: This is a well developed, well nourished patient who is awake, alert, kb and in no acute distress. Head/Face: Normocephalic, atraumatic. ENT: Moist Mucous membranes Cardiovascular: Regular rate and rhythm with a normal S1 and S2. No gallops, murmurs, or rubs. No pulse deficits. Respiratory: Respirations even and unlabored. No increased work of breathing, no retractions or nasal flaring. Abdomen/GI: Soft, non-tender. No distention Skin: Warm, dry with normal turgor. Normal color. MS/ Extremity: Pulses equal, no cyanosis. Neurovascular intact. Full, normal range of motion. Neuro: Awake and alert, GCS 15, oriented to person, place, time, and situation. Moves all extremities. Normal gait. Psych: Awake, alert, with orientation to person, place and time. Behavior, mood, and affect are within normal limits. 20:29 Chest/axilla: Inspection: normal, Palpation: tenderness, that is moderate, of the left lateral anterior chest, that totally reproduces the patient's complaints. Vital Signs: 16:09 BP 143 / 59; Pulse 74; Resp 17; Temp 97.9; Pulse Ox 100% ; Weight 122.47 kg; Height 5 ll1 ft. 0 in. (152.40 cm); Pain 4/10; 17:48 BP 139 / 62; Pulse 71; Resp 16 S; Pulse Ox 100% on R/A; ca1 16:09 Body Mass Index 52.73 (122.47 kg, 152.40 cm) ll1 MDM: 16:51 Patient medically screened. kb 17:31 Data reviewed: vital signs, nurses notes. Data interpreted: Pulse oximetry: on room air kb is 100 %. Interpretation: normal. Counseling: I had a detailed discussion with the patient and/or guardian regarding: the historical points, exam findings, and any diagnostic results supporting the discharge/admit diagnosis, radiology results, the need for outpatient follow up, a family practitioner, to return to the emergency department if symptoms worsen or persist or if there are any questions or concerns that arise at home. 03/15 16:12 Order name: Ribs Left XRAY; Complete Time: 17:26 kb 03/15 16:12 Order name: Chest Single View XRAY; Complete Time: 17:26 kb Administered Medications: 17:37 Drug: Ketorolac 30 mg Route: IM; Site: right deltoid; ca1 17:48 Follow up: Response: No adverse reaction; Pain is decreased ca1 Disposition: 19:05 Co-signature as Attending Physician, Ghulam Rogel MD I agree with the assessment and kdr plan of care. Disposition Summary: 03/15/21 17:35 Discharge Ordered Location: Home kb Condition: Stable kb Diagnosis - Left chest wall pain kb - Fall on same level from slipping, tripping and stumbling without subsequent kb striking against object Followup: kb - With: Emergency Department - When: As needed - Reason: Worsening of condition Followup: kb - With: Private Physician - When: 2 - 3 days - Reason: Recheck today's complaints, Continuance of care, Re-evaluation by your physician Discharge Instructions: - Discharge Summary Sheet kb - Chest Wall Pain, [id number] kb Forms: - Medication Reconciliation Form kb - Thank You Letter kb - Antibiotic Education kb - Prescription Opioid Use kb Prescriptions: - Diclofenac Sodium 75 mg Oral tablet,delayed release (DR/EC) - take 1 tablet by ORAL route 2 times per day As needed; 30 tablet; Refills: 0, kb Product Selection Permitted Signatures: Dispatcher [employer] EDMS Cuca Bustamante, WAIST CUTTER-C DESTINEE-Ghulam Fox MD MD kdr Acob, Cheryl, RN RN ca1 Teagan Pereyra RN RN ll1
[2021-03-15] MEDS ORDERED: KETOROLAC 30 MG/ML INJ ONE (17:57)
[2021-03-15 18:05] VITALS: TEMP 97.9; O2SAT 100
[2021-03-15 18:07] VITALS: BP 139/62
== END 2021-03-15 17:49 | disposition home or self-care (01) ==
LOC: ER 15:53
DX: R07.89 Other chest pain (principal); W01.198A Fall on same level from slipping, tripping and stumbling with subsequent striking against other object, initial encounter; Y93.01 Activity, walking, marching and hiking; Z88.0 Allergy status to penicillin; Z88.7 Allergy status to serum and vaccine; I10 Essential (primary) hypertension
CPT/HCPCS: 71045; 96372; 99284

== ENCOUNTER 2021-08-10 10:48 | Emergency (ER) | payer OTHER ==
[2021-08-10 11:55] LABS: Absolute Lymphocytes (CBC) 1.4 K/uL (0.7-4.9); Basophils % 0.5 % (0-1.3); Hematocrit 43.1 % (36.0-45.0); Lymphocytes % 26.6 % (15.3-44.8); MPV 8.5 fL (7.6-11.3); RBC Red Blood Cell Count 5.04 M/uL (3.86-4.86)
[2021-08-10 12:08] LABS: Albumin 3.7 g/dL (3.4-5.0); Bilirubin Direct 0.2 mg/dL (0-0.2); Bilirubin Total 0.8 mg/dL (0.2-1.0); Potassium 4.1 mmol/L (3.5-5.1); Protein, Total 7.4 g/dL (6.4-8.2)
[2021-08-10] MEDS ORDERED: KETOROLAC 30 MG/ML INJ ONE (14:18)
[2021-08-10] MEDS ORDERED: NA CHLORIDE 0.9% 500 ML ONE (14:18)
--- NOTE | 2021-08-10 14:43 | RAD REPORT ---
EXAM DESCRIPTION: CTStone Protocol - 08/10/2021 2:32 pm CLINICAL HISTORY: FLANK PAIN COMPARISON: Abdomen Pelvis W Contrast dated 08/08/2018; Stone Protocol dated 07/31/2016 TECHNIQUE: CT of the abdomen and pelvis was performed. All CT scans are performed using dose optimization technique as appropriate and may include automated exposure control or mA/KV adjustment according to patient size. FINDINGS: Lower chest: Multi-vessel coronary artery disease. Aortic valve calcifications. Liver: Question mild cirrhotic liver morphology. Biliary: No biliary ductal dilatation. Stomach: No significant focal abnormality. Duodenum: No significant focal abnormality. Pancreas: No significant abnormality. Spleen: No significant abnormality. Adrenal: No suspicious lesions. Kidney/ureter: No hydronephrosis. Punctate stone in the upper pole left kidney. No ureteral calculi o r hydronephrosis . Retroperitoneum: No retroperitoneal adenopathy. Vascular: No aneurysm. Bowel: No significant focal abnormality. Mild diverticulosis. Normal appendix. Peritoneum: No ascites or free air. Bladder: Grossly unremarkable. Reproductive: No adnexal masses. Bones: No acute fracture. Multilevel degenerative changes are present in the spine. Other: n/a IMPRESSION: No acute intra-abdominal or pelvic finding. Punctate left upper pole renal calculus. No ureteral calculi or hydronephrosis. Normal appendix.
--- NOTE | 2021-08-10 16:05 | EDPHYS ---
Physician Documentation [facility] Name: Justina Yoo Age: 61 yrs Sex: Female : 1960 Arrival Date: 08/10/2021 Time: 10:52 Bed 8 Private MD: SOFIA WORLEY ED Physician Ghulam Rogel HPI: 08/10 15:54 This 61 yrs old Female presents to ER via Ambulatory with complaints of kdr Abdominal Pain. 15:54 The patient presents with abdominal pain right lower quadrant. The symptoms radiate to kdr the right flank. Associated signs and symptoms: none. The symptoms are described as achy, intermittent, sharp, shooting, waxing/waning. Modifying factors: The symptoms are alleviated by nothing, the symptoms are aggravated by nothing. Severity of pain: At its worst the pain was mild moderate just prior to arrival, in the emergency department the pain is unchanged. The patient has not experienced similar symptoms in the past. The patient has not recently seen a physician. The patient has had right lower quadrant pain that radiates to her right flank and back for about a day. She denies urinary symptoms and denies any nausea vomiting. She also denies headache. She denies any other associated symptoms including fever. She has not had any cough or congestion. Historical: - Allergies: 11:17 PENICILLINS; jl7 11:17 Tetanus Vaccines \T\ Toxoid; jl7 - Home Meds: 11:17 metformin 500 mg Oral Tb24 1 tab once daily [Active]; lisinopril 10 mg Oral tab 1 tab jl7 once daily [Active]; - PMHx: 11:17 Anxiety; Arthritis; Asthma; Depression; Diabetes - NIDDM; Hypertension; Thyroid problem;jl7 - PSHx: 11:17 section; jl7 - Immunization history:: Adult Immunizations up to date, Client reports receiving the 2nd dose of the Covid vaccine, Pfizer. - Social history:: Smoking status: Patient denies any tobacco usage or history of. ROS: 15:54 Constitutional: Negative for fever, chills, and weight loss, Eyes: Negative for injury, kdr pain, redness, and discharge, Neck: Negative for injury, pain, and swelling, Cardiovascular: Negative for chest pain, palpitations, and edema, Respiratory: Negative for shortness of breath, cough, wheezing, and pleuritic chest pain, : Negative for injury, bleeding, discharge, and swelling, MS/Extremity: Negative for injury and deformity, Skin: Negative for injury, rash, and discoloration, Neuro: Negative for headache, weakness, numbness, tingling, and seizure activity. Psych: Negative for depression, anxiety, suicide ideation, homicidal ideation, and hallucinations, Allergy/Immunology: Negative for hives, rash, and allergies, Endocrine: Negative for neck swelling, polydipsia, polyuria, polyphagia, and marked weight changes, Hematologic/Lymphatic: Negative for swollen nodes, abnormal bleeding, and unusual bruising. 15:54 Abdomen/GI: Positive for abdominal pain, Negative for nausea and vomiting, nausea, vomiting, and diarrhea, nausea, vomiting, diarrhea, constipation, abdominal cramps, abdominal distension, anorexia, dysphagia, hematemesis, black/tarry stool, rectal pain, rectal bleeding, bowel incontinence. 15:54 Abdomen/GI: Positive for Pain to the right flank that radiates to the right groin. 15:54 Back: Positive for pain at rest, pain with movement, of the left mid back. Exam: 15:58 Constitutional: This is a well developed, well nourished patient who is awake, alert, kdr and in no acute distress. Head/Face: Normocephalic, atraumatic. Eyes: Pupils equal round and reactive to light, extra-ocular motions intact. Lids and lashes normal. Conjunctiva and sclera are non-icteric and not injected. Cornea within normal limits. Periorbital areas with no swelling, redness, or edema. Neck: Trachea midline, no thyromegaly or masses palpated, and no cervical lymphadenopathy. Supple, full range of motion without nuchal rigidity, or vertebral point tenderness. No Meningismus. Chest/axilla: Normal chest wall appearance and motion. Nontender with no deformity. No lesions are appreciated. Cardiovascular: Regular rate and rhythm with a normal S1 and S2. No gallops, murmurs, or rubs. Normal PMI, no JVD. No pulse deficits. Respiratory: Lungs have equal breath sounds bilaterally, clear to auscultation and percussion. No rales, rhonchi or wheezes noted. No increased work of breathing, no retractions or nasal flaring. Back: No spinal tenderness. No costovertebral tenderness. Full range of motion. Skin: Warm, dry with normal turgor. Normal color with no rashes, no lesions, and no evidence of cellulitis. MS/ Extremity: Pulses equal, no cyanosis. Neurovascular intact. Full, normal range of motion. Neuro: Awake and alert, GCS 15, oriented to person, place, time, and situation. Cranial nerves II-XII grossly intact. Motor strength 5/5 in all extremities. Sensory grossly intact. Cerebellar exam normal. Normal gait. Psych: Awake, alert, with orientation to person, place and time. Behavior, mood, and affect are within normal limits. 15:58 Abdomen/GI: Inspection: obese Bowel sounds: active, Palpation: soft, mild abdominal tenderness, in the posterior aspect of right lateral abdomen, anterior aspect of right lateral abdomen and right lower quadrant, mass, is not appreciated, rebound tenderness, is not appreciated. Vital Signs: 11:15 BP 211 / 85; Pulse 76; Resp 17; Temp 97.2; Pulse Ox 100% ; Weight 117.93 kg; Height 4 jl7 ft. 11 in. (149.86 cm); Pain 10/10; 12:17 BP 167 / 85; Pulse 112; Resp 20; Pulse Ox 100% ; cs9 14:40 BP 182 / 74; Pulse 75; Resp 19; Pulse Ox 99% ; ll1 16:32 BP 177 / 100; Pulse 75; Resp 18; Pulse Ox 99% ; ll1 11:15 Body Mass Index 52.51 (117.93 kg, 149.86 cm) jl7 MDM: 15:58 Data reviewed: vital signs, nurses notes, lab test result(s), radiologic studies. kdr Counseling: I had a detailed discussion with the patient and/or guardian regarding: the historical points, exam findings, and any diagnostic results supporting the discharge/admit diagnosis, lab results, radiology results, the need for outpatient follow up. 16:04 Patient medically screened. kdr 08/10 11:21 Order name: Basic Metabolic Panel; Complete Time: 12:15 kdr 08/10 11:21 Order name: CBC with Diff; Complete Time: 12:15 kdr 12 11:21 Order name: Hepatic Function; Complete Time: 12:15 kdr 08/10 11:21 Order name: Lipase; Complete Time: 12:15 kdr 08/10 14:07 Order name: CT Stone Protocol; Complete Time: 15:34 kdr 08/10 16:19 Order name: Urine Dipstick-Ancillary EDTN 08/10 11:21 Order name: IV Saline Lock; Complete Time: 11:23 kdr 08/10 11:21 Order name: Labs collected and sent; Complete Time: 11:23 kdr 08/10 15:35 Order name: Urine Dipstick-Ancillary (obtain specimen); Complete Time: 16:33 kdr Administered Medications: 14:31 Drug: Ketorolac 15 mg Route: IVP; Site: right antecubital; ll1 16:07 Follow up: Response: No adverse reaction; Pain is unchanged, physician notified; RASS: ll1 Alert and Calm (0) 14:31 Drug: NS 0.9% 500 ml Route: IV; Rate: bolus; Site: right antecubital; ll1 16:07 Follow up: Response: No adverse reaction; IV Status: Completed infusion; IV Intake: ll1 500ml Disposition Summary: 08/10/21 16:04 Discharge Ordered Location: Home kdr Problem: new kdr Symptoms: have improved kdr Condition: Stable kdr Diagnosis - Abdominal pain, Generalized kdr - Lower abdominal pain, unspecified kdr - Right flank pain and right lower quadrant pain kdr Followup: kdr - With: SOFIA WORLEY - When: 2 - 3 days - Reason: If symptoms return, Further diagnostic work-up, Recheck today's complaints, Continuance of care, Re-evaluation by your physician Discharge Instructions: - Discharge Summary Sheet kdr - Abdominal Pain, Adult kdr Forms: - Medication Reconciliation Form kdr - Thank You Letter kdr Prescriptions: - Zofran 4 mg Oral Tablet - take 1 tablet by ORAL route every 4-6 hours As needed; 12 tablet; Refills: 0, kdr Product Selection Permitted - Ibuprofen 600 mg Oral Tablet - take 1 tablet by ORAL route every 6 hours As needed take with food; 15 tablet; kdr Refills: 0, Product Selection Permitted Signatures: Dispatcher [employer] [facility] Ghulam Rogel MD MD kdr Mookie Martinez RN RN jl7 Teagan Pereyra RN RN ll1
--- NOTE | 2021-08-10 16:05 | ER ---
Nurse's Notes [facility] Name: Justina Yoo Age: 61 yrs Sex: Female : 1960 Arrival Date: 08/10/2021 Time: 10:52 Bed 8 Private MD: SOFIA WORLEY Diagnosis: Abdominal pain, Generalized;Lower abdominal pain, unspecified;Right flank pain and right lower quadrant pain Presentation: 08/10 11:15 Chief complaint: Patient states: RLQ pain radiates to right lower back x 1 day, denies jl7 urinary symptoms, denies N/V/D, reports MOSER. Coronavirus screen: At this time, the client does not indicate any symptoms associated with coronavirus-19. Ebola Screen: No symptoms or risks identified at this time. Initial Sepsis Screen: Does the patient meet any 2 criteria? No. Patient's initial sepsis screen is negative. Does the patient have a suspected source of infection? No. Patient's initial sepsis screen is negative. Risk Assessment: Do you want to hurt yourself or someone else? Patient reports no desire to harm self or others. Onset of symptoms is unknown. 11:15 Method Of Arrival: Ambulatory jl7 11:15 Acuity: SARIKA 2 jl7 Triage Assessment: 11:17 General: Appears in no apparent distress. uncomfortable, Behavior is calm, cooperative, jl7 appropriate for age. Pain: Complains of pain in right lower quadrant Pain radiates to right low back Pain currently is 10 out of 10 on a pain scale. GI: Patient currently denies constipation, diarrhea, nausea, vomiting. Historical: - Allergies: 11:17 PENICILLINS; jl7 11:17 Tetanus Vaccines \T\ Toxoid; jl7 - Home Meds: 11:17 metformin 500 mg Oral Tb24 1 tab once daily [Active]; lisinopril 10 mg Oral tab 1 tab jl7 once daily [Active]; - PMHx: 11:17 Anxiety; Arthritis; Asthma; Depression; Diabetes - NIDDM; Hypertension; Thyroid problem;jl7 - PSHx: 11:17 section; jl7 - Immunization history:: Adult Immunizations up to date, Client reports receiving the 2nd dose of the Covid vaccine, Pfizer. - Social history:: Smoking status: Patient denies any tobacco usage or history of. Screenin:24 Abuse screen: Denies threats or abuse. Nutritional screening: No deficits noted. ll1 Tuberculosis screening: No symptoms or risk factors identified. 11:25 Fall Risk IV access (20 points). Total Blake Fall Scale indicates No Risk (0-24 pts). ll1 Assessment: 12:00 Reassessment: No changes from previously documented assessment. Patient and/or family ll1 updated on plan of care and expected duration. Pain level reassessed. Patient is alert, oriented x 3, equal unlabored respirations, skin warm/dry/pink. 13:00 Reassessment: No changes from previously documented assessment. Patient and/or family ll1 updated on plan of care and expected duration. Pain level reassessed. Patient is alert, oriented x 3, equal unlabored respirations, skin warm/dry/pink. 14:00 Reassessment: No changes from previously documented assessment. Patient and/or family ll1 updated on plan of care and expected duration. Pain level reassessed. Patient is alert, oriented x 3, equal unlabored respirations, skin warm/dry/pink. Patient states symptoms have not improved. Dr. Rogel informed.. 15:00 Reassessment: No changes from previously documented assessment. Patient and/or family ll1 updated on plan of care and expected duration. Pain level reassessed. Patient is alert, oriented x 3, equal unlabored respirations, skin warm/dry/pink. 16:00 Reassessment: No changes from previously documented assessment. Patient and/or family ll1 updated on plan of care and expected duration. Pain level reassessed. Patient is alert, oriented x 3, equal unlabored respirations, skin warm/dry/pink. 16:33 GI: Bowel sounds present X 4 quads. Abd is soft and non tender X 4 quads. ll1 Vital Signs: 11:15 BP 211 / 85; Pulse 76; Resp 17; Temp 97.2; Pulse Ox 100% ; Weight 117.93 kg; Height 4 jl7 ft. 11 in. (149.86 cm); Pain 10/10; 12:17 BP 167 / 85; Pulse 112; Resp 20; Pulse Ox 100% ; cs9 14:40 BP 182 / 74; Pulse 75; Resp 19; Pulse Ox 99% ; ll1 16:32 BP 177 / 100; Pulse 75; Resp 18; Pulse Ox 99% ; ll1 11:15 Body Mass Index 52.51 (117.93 kg, 149.86 cm) jl7 ED Course: 10:52 Patient arrived in ED. as 10:52 SOFIA WORLEY is Private Physician. as 11:17 Triage completed. jl7 11:17 Arm band placed on right wrist. jl7 11:21 Ghulam Rogel MD is Attending Physician. kdr 11:23 Teagan Pereyra, RN is Primary Nurse. ll1 11:24 Patient placed in an exam room, on a stretcher. ll1 11:25 Patient has correct armband on for positive identification. Bed in low position. Call ll1 light in reach. Side rails up X 1. Pulse ox on. NIBP on. 11:40 Inserted saline lock: 22 gauge in left antecubital area, using aseptic technique. Blood ll1 collected. 14:33 CT Stone Protocol In Process Unspecified. EDMS 16:03 SOFIA WORLEY is Referral Physician. kdr 16:32 No provider procedures requiring assistance completed. IV discontinued, intact, ll1 bleeding controlled, No redness/swelling at site. Pressure dressing applied. Administered Medications: 14:31 Drug: Ketorolac 15 mg Route: IVP; Site: right antecubital; ll1 16:07 Follow up: Response: No adverse reaction; Pain is unchanged, physician notified; RASS: ll1 Alert and Calm (0) 14:31 Drug: NS 0.9% 500 ml Route: IV; Rate: bolus; Site: right antecubital; ll1 16:07 Follow up: Response: No adverse reaction; IV Status: Completed infusion; IV Intake: ll1 500ml Intake: 16:07 IV: 500ml; Total: 500ml. ll1 Outcome: 16:04 Discharge ordered by . kdr 16:33 Discharged to home ambulatory. ll1 16:33 Condition: stable 16:33 Discharge instructions given to patient, Instructed on discharge instructions, follow up and referral plans. medication usage, Demonstrated understanding of instructions, follow-up care, medications, Prescriptions given X 2. 16:33 Patient left the ED. ll1 Signatures: Dispatcher [employer] EDDE Ghulam Rogel MD MD kdr Jenae Luke Jahala, RN RN jl7 Teagan Pereyra RN RN 1 Snook, Aria cs9
[2021-08-10 16:20] LABS: Urine Blood Trace-intact (Negative); Urine Glucose Negative (Negative); Urine Protein Negative (Negative); Urine Specific Gravity 1.025 (1.005-1.030)
[2021-08-10 16:45] VITALS: TEMP 97.2
[2021-08-10 16:48] VITALS: O2SAT 99
[2021-08-10 16:50] VITALS: BP 177/100
== END 2021-08-10 16:33 | disposition home or self-care (01) ==
LOC: ER 10:48
DX: R10.84 Generalized abdominal pain (principal); E11.9 Type 2 diabetes mellitus without complications; I10 Essential (primary) hypertension; Z88.0 Allergy status to penicillin
CPT/HCPCS: 96361; 85025; 80048; 36415; 80076; 81003; 83690; 76377; 74176; 96374; 99284; J7040

== ENCOUNTER 2021-08-25 15:54 | Emergency (ER) | payer OTHER ==
--- OUTSIDE RECORDS SUMMARY | 2021-08-25 15:57 | XMS REPORT | Continuity of Care Document ---
:1960 Author Organization [facility] t Address [address] [place] [address] [address] [place] [address] Care Team Providers Name Role Phone ANDREZ WORLEY Primary Care Physician Unavailable IVETTE ALAMO Attending Clinician Unavailable Ivette Francois Attending Clinician Ricardo Fletcher MD Attending Clinician Ricardo FLETCHER Attending Clinician Unavailable Payers Payer Name Policy Type Policy Number Effective Date Expiration Date S xiao MEDICARE PART A [id number] 2007 \\T\\ B 00:00:00 [place] [id number] 2011 00:00:00 Problems Condition Condition Condition Status Onset Resolution Last Treating Co mments Source Name Details Category Date Date Treatment Clinician Date Encounter Encounter Disease Active Uni vers for for 10-04 ity of screening screening 00:00: David castillo mammogram mammogram 00 [facility] for breast for breast Br anch cancer cancer Morbid Morbid Disease Active Univers obesity obesity 10-04 ity of due to due to 00:00: [place] excess excess 00 Medical calories calories Branch [E66.01] [E66.01] Essential Essential Disease Active Uni vers hypertensi hypertensi 10-04 it y of on on 00:00: [place] 00 [facility] Non-insuli Non-insuli Disease Active U sergio n n 10-04 ity of dependent dependent 00:00: David s type 2 type 2 00 Medical diabetes diabetes Branch mellitus mellitus Generalize Generalize Disease Active U nivers d anxiety d anxiety 10-04 ity of disorder disorder 00:00: [place] 00 [facility] Polyp at Polyp at Disease Active Unive rs cervical cervical 10-04 ity of os os 00:00: [place] 00 Medical Branch Post-menop Post-menop Disease Active U sergio ause ause 10-04 ity of bleeding bleeding 00:00: [place] 00 [facility] [place] Allergies, Adverse Reactions, Alerts Allergy Allergy Status Severity Reaction(s) Onset Inactive Treating Comm ents Source Name Type Date Date Clinician Vaccine Propensi Active Other - See Per pt Un jack Adjuvant ty to comments 10-04 has ity of Emulsion adverse 00:00: swelling [place] Combinat reaction 00 to arm Medica l ion No. s and was Branch 1 told by she had reaction and to no longer get a td vaccine d/t reaction VACCINE DRUG Active Swelling Univers ADJUVANT INGREDI 10-04 ity of EMULSION 00:00: [place] COMBINAT 00 Medical ION NO. Branch 1 Penicill Propensi Active Unknown - Pt states Univers ins ty to See comments 05-13 " I don't i ty of adverse 00:00: know what [place] reaction 00 happens, Medica l s to all I Branch drug know is that I am allergic since I was little." PENICILL Drug Active High Unknown-Cmnt Un jack INS Class 9- ity of 00:00: [place] 00 [facility] Social History Social Habit Start Date Stop Date Quantity Comments Source Exposure to Not sure [facility] SARS-CoV-2 (event) Medica l Branch Alcohol intake 2021-08-13 2021-08-13 0 /d [facility] 00:00:00 00:00:00 [facility] Tobacco use and 2016-10-04 2016-10-04 Never used [facility] exposure 00:00:00 00:00:00 [facility] Sex Ass[birth year] At [birth year] [facility] 00:00:00 00:00:00 [facility] Smoking Status Start Date Stop Date Source Never smoker [facility] Medications Ordered Filled Start Stop Current Ordering Indication Dosage Frequency Signature Comments Components Source Medication Medication Date Date Medication? Clinician (SIG) Name Name diclofenac 2020-09- No 75mg Take 75 mg Univers 75 mg EC 2-05 12-05 by mouth ity of tablet 12:23: 00:00 daily. [place] 25 :00 [facility] Branch ibuprofen 2020-09 Yes [id number] 600mg Take 1 U nivers 600 mg 2-05 tablet by ity of tablet 00:00: mouth [place] 00 every 6 Medical (six) Branch hours as needed for Pain (scale 4-6). methocarbam 2020-09 Yes [id number] 500mg Take 1 Univers oL 500 mg 2-05 tablet by ity o f tablet 00:00: mouth 4 [place] 00 (four) Medical times Branch daily. FENTanyl PF 2020-09 No 75ug 75 mcg, Un jack (SUBLIMAZE 10-12 Intramuscu it y of (PF)) 06:00: 06:06 lar, ONCE, [place] injection 00 :00 1 dose, On Medi bernardo 75 mcg Fri Branch 08/11/21 at 0000, Routine lisinopril Yes 20mg Take 20 mg U nivers 20 mg 1-26 by mouth ity of tablet 09:11: daily. [address] metFORMIN Yes 500mg Take 500 Uni vers 500 mg 1-26 mg by ity of tablet 09:11: mouth as [place] [id number] needed. [facility] Branch diclofenac Yes 75mg Take 75 mg U nivers 75 mg EC 1-26 by mouth ity of tablet 09:11: daily. [address] lisinopril Yes 20mg Take 20 mg U nivers 20 mg 1-26 by mouth ity of tablet 09:11: daily. [address] metFORMIN Yes 500mg Take 500 Uni vers 500 mg 1-26 mg by ity of tablet 09:11: mouth as [place] [id number] needed. [facility] Branch Immunizations Ordered Filled Immunization Date Status Comments [facility] e Immunization Name Name Influenza Virus 2016-08-04 Completed Universit y of Vaccine 00:00:00 [facility] Influenza Virus 2016-08-04 Completed Universit y of Vaccine 00:00:00 [facility] TDAP (ADACEL) 1998-10-04 Completed University of VACCINE 00:00:00 [facility] TDAP (ADACEL) 1998-10-04 Completed University of VACCINE 00:00:00 [facility] Vital Signs Vital Name Observation Time Observation Value Comments Source Systolic blood 2021-08-13 17:30:00 151 mm[Hg] Univer sity of pressure [facility] Diastolic blood 2021-08-13 17:30:00 58 mm[Hg] Unive rsity of pressure [facility] Heart rate 2021-08-13 17:30:00 71 /min [facility]i [facility] Body temperature 2021-08-13 17:30:00 36.56 [place] Univ ersity [facility] Respiratory rate 2021-08-13 17:30:00 18 /min Univ ers[facility] Body weight 2021-08-13 17:30:00 122.471 kg [facility] BMI 2021-08-13 17:30:00 52.73 kg/m2 [facility] Oxygen saturation in 2021-08-13 17:30:00 99 /min University of Arterial blood by [facility] Pulse oximetry Branch Systolic blood 2021-08-11 06:00:00 152 mm[Hg] Univer sity of pressure [place] [facility] [place] Diastolic blood 2021-08-11 06:00:00 78 mm[Hg] Unive rsity of pressure [facility] Heart rate 2021-08-11 06:00:00 85 /min [facility] Respiratory rate 2021-08-11 06:00:00 21 /min Univ ers[facility] Oxygen saturation in 2021-08-11 06:00:00 100 /min University of Arterial blood by [facility] Pulse oximetry Branch Body temperature 2021-08-11 04:14:00 37.17 [place] Univ [facility] [place] [facility] [place] Body weight 2021-08-11 04:14:00 122.471 kg [facility] BMI 2021-08-11 04:14:00 52.73 kg/m2 [facility] Procedures Procedure Date / Time Performed Performing Clinician [facility] NOTICE OF PRIVACY 2021-08-11 04:02:07 Doctor Unassigned, No [facility] Branch CONSENT/REFUSAL FOR 2021-08-11 04:00:02 Doctor Unassigned, No [facility] DIAGNOSIS AND Name Medical Branch TREATMENT Encounters Start End Encounter Admission Attending Care Care Encounter Source Date/Time Date/Time Type Type Clinicians Facility Department ID 2021-08-13 2021-08-13 Emergency X Lashell ALAMO [facility] ERT [id number] Univers 11:30:00 12:28:00 ity of [facility] 2021-08-13 2021-08-13 Emergency [facility] [id number] Univers 11:30:00 12:28:00 Ivette QUIROZ [id number] i ty of [place] [id number] [facility] [id number] [address] 2021-08-10 2021-08-11 Emergency [facility] [id number] Univers 22:16:00 00:16:00 Wendy Castillo ANAHIRO [id number] ity [facility] [id number] [facility] [id number] [address] 2021-08-10 2021-08-11 Emergency X [facility] ERT [id number] Univers 22:16:00 00:16:00 WENDY hogan [facility] Results This patient has no known results.
[2021-08-25] MEDS ORDERED: CASIRIVIMAB/IMDEVIMAB 10 ML VIAL ONE (16:30)
[2021-08-25] MEDS ORDERED: NA CHLORIDE 0.9% 250 ML ONE (16:31)
--- NOTE | 2021-08-25 17:38 | ER ---
Nurse's Notes [facility] Name: Justina Yoo Age: 61 yrs Sex: Female : 1960 Arrival Date: 08/25/2021 Time: 16:01 Bed 12 Private MD: Yonathan Ferrera Diagnosis: Coronavirus infection, unspecified Presentation: 08/25 16:42 Acuity: SARIKA 3 iw 16:49 Chief complaint: Patient states: COVID+ today, symptoms started 3 days ago, cough and iw fever. Coronavirus screen: Vaccine status: Patient reports receiving the 2nd dose of the covid vaccine. Client denies travel out of the [place] in the last 14 days. Client presents with at least one sign or symptom that may indicate coronavirus-19. Standard/surgical mask placed on the client. Client reports previous positive COVID test result. Ebola Screen: No symptoms or risks identified at this time. Initial Sepsis Screen: Does the patient meet any 2 criteria? No. Patient's initial sepsis screen is negative. Risk Assessment: Do you want to hurt yourself or someone else? Patient reports no desire to harm self or others. Onset of symptoms was August 22, 2021. 16:49 Method Of Arrival: Ambulatory iw 16:49 Acuity: SARIKA 3 iw Historical: - Allergies: 16:54 PENICILLINS; iw 16:54 Tetanus Vaccines \T\ Toxoid; iw - PMHx: 16:54 Diabetes - NIDDM; Hypertension; Arthritis; iw Assessment: 18:00 General: Appears in no apparent distress. Behavior is calm, cooperative. Pain: Denies iw pain. Neuro: Level of Consciousness is awake, alert, obeys commands, Oriented to person, place, time, situation, Moves all extremities. Full function. Cardiovascular: Patient's skin is warm and dry. Respiratory: Respiratory effort is even, unlabored, Respiratory pattern is regular, symmetrical. Vital Signs: 16:49 BP 156 / 57; Pulse 81; Resp 20; Temp 98.0; Pulse Ox 98% on R/A; Weight 124.74 kg; iw Height 4 ft. 8 in. (142.24 cm); 17:30 BP 151 / 64; Pulse 77; Resp 18 S; Pulse Ox 100% on R/A; iw 16:49 Body Mass Index 61.65 (124.74 kg, 142.24 cm) iw ED Course: 16:01 Patient arrived in ED. mr 16:01 Gerald Ferrera MD is Private Physician. mr 16:01 Yonathan Ferrera DO is Private Physician. mr 16:21 [facility]am[facility]C [facility] kb 16:21 Ghulam Rogel MD is Attending Physician. kb 16:31 Inserted saline lock: 20 gauge in right hand, using aseptic technique. dh3 16:38 Vita Gutierrez, RN is Primary Nurse. iw 16:42 Triage completed. iw 17:37 Yonathan Ferrera DO is Referral Physician. kb Administered Medications: 17:07 Drug: REGEN-COV Dose Pack 120 mg/mL-120 mg/mL (EUA) 1 application Route: IV; Rate: iw calculated rate; Site: right hand; 18:07 Follow up: IV Status: Completed infusion iw Outcome: 17:37 Discharge ordered by MD. kb 18:54 Discharged to home ambulatory, with family. iw 18:54 Condition: good 18:54 Discharge instructions given to patient, Instructed on discharge instructions, follow up and referral plans. Demonstrated understanding of instructions, follow-up care. 18:55 Patient left the ED. iw Signatures: Cuca Bustamante FNP-C FNP-Samra Duarte mr Vita Gutierrez, RN RN Kylie De [facility]
--- NOTE | 2021-08-25 17:38 | EDPHYS ---
Physician Documentation [facility] Name: Justina Yoo Age: 61 yrs Sex: Female : 1960 Arrival Date: 08/25/2021 Time: 16:01 Bed 12 Private MD: Iban [facility] ED Physician Ghulam Rogel HPI: 08/25 16:43 This 61 yrs old Female presents to ER via Unassigned with complaints of Covid+ kb infusion. 16:43 The patient or guardian reports cough, that is intermittent, described as mild, flu kb symptoms, low-grade fever. Onset: The symptoms/episode began/occurred 3 day(s) ago. Severity of symptoms: At their worst the symptoms were mild, in the emergency department the symptoms are unchanged. Modifying factors: The symptoms are alleviated by nothing, the symptoms are aggravated by nothing. Associated signs and symptoms: Pertinent positives: fever, Pertinent negatives: chest pain, diarrhea, ear ache, nausea, rhinorrhea, sore throat, vomiting. The patient has not experienced similar symptoms in the past. The patient has not recently seen a physician. Pt reports cough and fever for 3 days, tested positive for covid at the pharmacy today. called dr begum and was told to come to the ER for antibody infusion.. Historical: - Allergies: 16:54 PENICILLINS; iw 16:54 Tetanus Vaccines \T\ Toxoid; iw - PMHx: 16:54 Diabetes - NIDDM; Hypertension; Arthritis; iw ROS: 16:44 Cardiovascular: Negative for chest pain, palpitations, and edema. kb 16:44 Constitutional: Positive for fever. 16:44 Respiratory: Positive for cough, Negative for dyspnea on exertion, hemoptysis, orthopnea, pleurisy, shortness of breath, sputum production, wheezing. 16:44 All other systems are negative. Exam: 16:45 Constitutional: This is a well developed, well nourished patient who is awake, alert, kb and in no acute distress. Head/Face: Normocephalic, atraumatic. ENT: Moist Mucous membranes Cardiovascular: Regular rate and rhythm with a normal S1 and S2. No gallops, murmurs, or rubs. No pulse deficits. Respiratory: Respirations even and unlabored. No increased work of breathing. Talking in full sentences Skin: Warm, dry with normal turgor. Normal color. MS/ Extremity: Pulses equal, no cyanosis. Neurovascular intact. Full, normal range of motion. Neuro: Awake and alert, GCS 15, oriented to person, place, time, and situation. Moves all extremities. Normal gait. Psych: Awake, alert, with orientation to person, place and time. Behavior, mood, and affect are within normal limits. Vital Signs: 16:49 BP 156 / 57; Pulse 81; Resp 20; Temp 98.0; Pulse Ox 98% on R/A; Weight 124.74 kg; iw Height 4 ft. 8 in. (142.24 cm); 17:30 BP 151 / 64; Pulse 77; Resp 18 S; Pulse Ox 100% on R/A; iw 16:49 Body Mass Index 61.65 (124.74 kg, 142.24 cm) iw MDM: 16:21 Patient medically screened. kb 16:42 Data reviewed: vital signs, nurses notes. Data interpreted: Pulse oximetry: on room air kb is 98 %. Interpretation: normal. Counseling: I had a detailed discussion with the patient and/or guardian regarding: the historical points, exam findings, and any diagnostic results supporting the discharge/admit diagnosis, the need for outpatient follow up, a family practitioner, to return to the emergency department if symptoms worsen or persist or if there are any questions or concerns that arise at home. Administered Medications: 17:07 Drug: REGEN-COV Dose Pack 120 mg/mL-120 mg/mL (EUA) 1 application Route: IV; Rate: iw calculated rate; Site: right hand; 18:07 Follow up: IV Status: Completed infusion iw Disposition: 18:58 Co-signature as Attending Physician, Ghulam Rogel MD I agree with the assessment and kdr plan of care. Disposition Summary: 08/25/21 17:37 Discharge Ordered Location: Home kb Condition: Stable kb Diagnosis - Coronavirus infection, unspecified kb Followup: kb - With: Emergency Department - When: As needed - Reason: Worsening of condition Followup: kb - With: - When: 2 - 3 days - Reason: Recheck today's complaints, Continuance of care, Re-evaluation by your physician Discharge Instructions: - Discharge Summary Sheet kb - Viral Respiratory Infection, [id number] kb - COVID-19 kb Forms: - Medication Reconciliation Form kb - Thank You Letter kb - Antibiotic Education kb - Prescription Opioid Use kb Signatures: Cuca Bustamante, AGILE JAVA DEVELOPER-C AGILE JAVA DEVELOPER-Carmelob Ghulam Rogel MD MD kdr Williams, Irene, RN RN iw
[2021-08-25 19:02] VITALS: TEMP 98
[2021-08-25 19:03] VITALS: BP 151/64; O2SAT 100
== END 2021-08-25 18:55 | disposition home or self-care (01) ==
LOC: ER 15:54
DX: U07.1 COVID-19 (principal); E11.9 Type 2 diabetes mellitus without complications; I10 Essential (primary) hypertension; M19.90 Unspecified osteoarthritis, unspecified site
CPT/HCPCS: 96365; 99283; J7050

== ENCOUNTER 2022-02-23 07:24 | Emergency (ER) | payer OTHER ==
--- OUTSIDE RECORDS SUMMARY | 2022-02-23 07:28 | XMS REPORT | Continuity of Care Document ---
:1960 Author Organization [facility] t Address [address] [place] [address] [address]. [address] [place] [address] Care Team Providers Name Role Phone ANDREZ WORLEY Primary Care Physician Unavailable IVETTE ALAMO Attending Clinician Unavailable Ivette Francois Attending Clinician Ricardo Fletcher MD Attending Clinician Ricardo FLETCHER Attending Clinician Unavailable Payers Payer Name Policy Type Policy Number Effective Date Expiration Date S xiao MEDICARE PART A [id number] 2007 \\T\\ B 00:00:00 [place]ICAID OF [place] [id number] 2011 00:00:00 Problems Condition Condition Condition Status Onset Resolution Last Treating Co mments Source Name Details Category Date Date Treatment Clinician Date Encounter Encounter Disease Active Uni vers for for 10-04 ity of screening screening 00:00: David castillo mammogram mammogram 00 [facility] for breast for breast Br anch [...] ity of disorder disorder 00:00: [place] 00 [facility] Polyp at Polyp at Disease Active Unive rs cervical cervical 10-04 ity of os os 00:00: [place] 00 Medical [facility] Post-menop Post-menop Disease Active U sergio ause ause 10-04 ity of bleeding bleeding 00:00: [place] 00 [facility] [place] Allergies, Adverse Reactions, Alerts Allergy Allergy Status [...] Class 9- ity of 00:00: [place] 00 [facility] Social History Social Habit Start Date Stop Date Quantity Comments Source Exposure to Not sure [facility] SARS-CoV-2 (event) Medica l Branch Alcohol intake 2021-08-13 2021-08-13 0 /d [facility] 00:00:00 00:00:00 [facility] Tobacco use and 2016-10-04 2016-10-04 Never used [facility] exposure 00:00:00 00:00:00 [facility] Sex Ass[birth year] At [birth year] [facility] 00:00:00 00:00:00 [facility] Smoking Status Start Date Stop Date Source Never smoker [facility] Medications Ordered Filled Start Stop Current Ordering Indication Dosage Frequency Signature Comments Components Source Medication Medication Date Date Medication? Clinician (SIG) Name Name diclofenac 2020-09- No 75mg Take 75 mg Univers 75 mg EC 2-05 12-05 by mouth ity of tablet 12:23: 00:00 daily. [place] 25 :00 [facility] ibuprofen 2020-09 Yes [id number] 600mg Take 1 U nivers 600 mg 2-05 tablet by ity of tablet 00:00: mouth [place] 00 every 6 Medical (six) Branch hours as needed for Pain (scale 4-6). methocarbam 2020-09 Yes [id number] 500mg Take 1 Univers oL 500 mg [...] by mouth ity of tablet 09:11: daily. [address] metFORMIN Yes 500mg Take 500 Uni vers 500 mg 1-26 mg by ity of tablet 09:11: mouth as [place] [address] [facility] diclofenac Yes 75mg Take 75 mg U nivers 75 mg EC 1-26 by mouth ity of tablet 09:11: daily. [address] lisinopril Yes 20mg Take 20 mg U nivers 20 mg 1-26 by mouth ity of tablet 09:11: daily. [address] metFORMIN Yes 500mg Take 500 Uni vers 500 mg 1-26 mg by ity of tablet 09:11: mouth as [place] [address] [facility] Immunizations Ordered Filled Immunization Date Status Comments [facility] e Immunization Name Name Influenza Virus 2016-08-04 Completed Universit y of Vaccine 00:00:00 [facility] Influenza Virus 2016-08-04 Completed Universit y of Vaccine 00:00:00 [facility] TDAP (ADACEL) 1998-10-04 Completed University of VACCINE 00:00:00 [facility] TDAP (ADACEL) 1998-10-04 Completed University of VACCINE 00:00:00 [facility] Vital Signs Vital Name Observation Time Observation Value Comments Source Systolic blood 2021-08-13 17:30:00 151 mm[Hg] Univer sity of pressure [facility] Diastolic blood 2021-08-13 17:30:00 58 mm[Hg] Unive rsity of pressure [facility] Heart rate 2021-08-13 17:30:00 71 /min [facility] Body temperature 2021-08-13 17:30:00 36.56 Antonieta Univ ers[facility] Respiratory rate 2021-08-13 17:30:00 18 /min [facility] Body weight 2021-08-13 17:30:00 122.471 kg [facility] BMI 2021-08-13 17:30:00 52.73 kg/m2 [facility] Oxygen saturation in 2021-08-13 17:30:00 99 /min University of Arterial blood by [facility] Pulse oximetry Branch Systolic blood 2021-08-11 06:00:00 152 mm[Hg] Univer sity of pressure [facility] Diastolic blood 2021-08-11 06:00:00 78 mm[Hg] Unive rsity of pressure [facility] Heart rate 2021-08-11 06:00:00 85 /min [facility] Respiratory rate 2021-08-11 06:00:00 21 /min Univ [facility] Oxygen saturation in 2021-08-11 06:00:00 100 /min University of Arterial blood by [facility] Pulse oximetry Branch Body temperature 2021-08-11 04:14:00 37.17 Antonieta Univ [facility] [place] Body weight 2021-08-11 04:14:00 122.471 kg [facility] BMI 2021-08-11 04:14:00 52.73 kg/m2 [facility] Procedures Procedure Date / Time Performed Performing Clinician [facility] e NOTICE OF PRIVACY 2021-08-11 04:02:07 Doctor Unassigned, No [facility] Name [facility] Branch CONSENT/REFUSAL FOR 2021-08-11 04:00:02 Doctor Unassigned, [facility] DI[facility]NOSIS AND Name Medical Branch TREATMENT Encounters Start End Encounter Admission Attending Care Care Encounter Source Date/Time Date/Time Type Type Clinicians Facility Department ID 2021-08-13 2021-08-13 Emergency X Lashell ALAMO [facility] ERT [id number] Univers 11:30:00 12:28:00 ity of [facility] 2021-08-13 2021-08-13 Emergency Lashell Alamo [facility] [id number] Univers 11:30:00 12:28:00 Ivette QUIROZ [id number] i ty of [place] [id number] [facility] [id number] [address] 2021-08-10 2021-08-11 Emergency [facility] [id number] Univers 22:16:00 00:16:00 Wendy Castillo ANAHIRO [id number] ity [facility] [id number] [facility] [id number] [address] 2021-08-10 2021-08-11 Emergency X [facility] ERT [id number] Univers 22:16:00 00:16:00 WENDY hogan [facility] Results This patient has no known results.
--- NOTE | 2022-02-23 08:12 | EDPHYS ---
Physician Documentation [facility] Name: Justina Yoo Age: 61 yrs Sex: Female : 1960 Arrival Date: 02/23/2022 Time: 07:26 Bed 6 Private MD: Xochitl Funez ED Physician Rina Pham HPI: 02/23 08:54 This 61 yrs old Female presents to ER via Ambulatory with complaints of Neck kb Pain, >24Hrs Old. 08:54 The patient or guardian complains of pain. The symptoms are located on the right kb lateral aspect of neck and right posterior aspect of neck. Onset: The symptoms/episode began/occurred 4 day(s) ago. Context: The problem was sustained at home, The neck injury/problem resulted from woke up with the pain. Associated signs and symptoms: Pertinent positives: This patient does not have any pertinent positive signs or symptoms associated with neck pain. Pertinent negatives: headache, numbness, tingling, The patient denies any alcohol use. The patient is not apparently intoxicated. No neurological symptoms were experienced by the patient prior to arrival in the emergency department. The pain does not radiate. Modifying factors: The symptoms are alleviated by nothing. the symptoms are aggravated by nothing. Severity of symptoms: At their worst the symptoms were mild, moderate, in the emergency department the symptoms are unchanged. The patient has not experienced similar symptoms in the past. The patient has not recently seen a physician. Historical: - Allergies: 07:56 PENICILLINS; iw 07:56 Tetanus Vaccines \T\ Toxoid; iw - PMHx: 07:56 Anxiety; Arthritis; Asthma; Depression; Diabetes - NIDDM; Hypertension; Thyroid problem;iw - PSHx: 07:56 section; iw ROS: 08:52 Constitutional: Negative for fever, chills, and weight loss. kb 08:52 Neck: Positive for pain with movement, tenderness, of the right posterior aspect of neck and right lateral aspect of neck. 08:52 All other systems are negative. Exam: 08:52 Constitutional: This is a well developed, well nourished patient who is awake, alert, kb and in no acute distress. Head/Face: Normocephalic, atraumatic. ENT: Moist Mucous membranes Respiratory: Respirations even and unlabored. No increased work of breathing. Talking in full sentences Skin: Warm, dry with normal turgor. Normal color. MS/ Extremity: Pulses equal, no cyanosis. Neurovascular intact. Full, normal range of motion. Neuro: Awake and alert, GCS 15, oriented to person, place, time, and situation. Moves all extremities. Normal gait. Psych: Awake, alert, with orientation to person, place and time. Behavior, mood, and affect are within normal limits. 08:52 Neck: External neck: tenderness, that is mild, of the right posterior aspect of neck and right lateral aspect of neck, C-spine: appears grossly normal, no vertebral tenderness, no crepitus, ROM/movement: pain, that is mild, with extension, with flexion, reports a stretching pain to right posterior neck when looking up and down, no pain on left or right rotation. Vital Signs: 07:55 BP 159 / 70; Pulse 75; Resp 16; Temp 97.0; Pulse Ox 99% on R/A; iw MDM: 08:02 Patient medically screened. kb 08:52 Data reviewed: vital signs, nurses notes. Data interpreted: Pulse oximetry: on room air kb is 99 %. Interpretation: normal. Counseling: I had a detailed discussion with the patient and/or guardian regarding: the historical points, exam findings, and any diagnostic results supporting the discharge/admit diagnosis, the need for outpatient follow up, a family practitioner, to return to the emergency department if symptoms worsen or persist or if there are any questions or concerns that arise at home. Administered Medications: No medications were administered Disposition: 14:37 Co-signature as Attending Physician, Rina Pham MD I agree with the assessment ma2 and plan of care. Disposition Summary: 02/23/22 08:11 Discharge Ordered Location: Home kb Condition: Stable kb Diagnosis - Strain of muscle, fascia and tendon at neck level kb Followup: kb - With: Emergency Department - When: As needed - Reason: Worsening of condition Followup: kb - With: Private Physician - When: 2 - 3 days - Reason: Recheck today's complaints, Continuance of care, Re-evaluation by your physician Discharge Instructions: - Discharge Summary Sheet kb - Muscle Strain, Tbyr-ma-Ojbs kb Forms: - Medication Reconciliation Form kb - Thank You Letter kb - Antibiotic Education kb - Prescription Opioid Use kb Prescriptions: - Cyclobenzaprine 10 mg Oral Tablet - take 1 tablet by ORAL route every 8 hours As needed; 15 tablet; Refills: 0, kb Product Selection Permitted - Diclofenac Sodium 75 mg Oral tablet,delayed release (DR/EC) - take 1 tablet by ORAL route 2 times per day As needed; 30 tablet; Refills: 0, kb Product Selection Permitted Signatures: Cuca Bustamante FNP-C FNP-Ckb Williams, Irene, RN RN Rina Pham MD MD ma2
--- NOTE | 2022-02-23 08:12 | ER ---
Nurse's Notes [facility] Name: Justina Yoo Age: 61 yrs Sex: Female : 1960 Arrival Date: 02/23/2022 Time: 07:26 Bed 6 Private MD: Xochitl Funez Diagnosis: Strain of muscle, fascia and tendon at neck level Presentation: 02/23 07:55 Chief complaint: Patient states: 2-3 days of pain in back of neck, fells a bump in back iw of neck. Coronavirus screen: At this time, the client does not indicate any symptoms associated with coronavirus-19. Ebola Screen: Patient negative for fever greater than or equal to 101.5 degrees Fahrenheit, and additional compatible Ebola Virus Disease symptoms Patient denies exposure to infectious person. Patient denies travel to an Ebola-affected area in the 21 days before illness onset. No symptoms or risks identified at this time. Initial Sepsis Screen: Does the patient meet any 2 criteria? No. Patient's initial sepsis screen is negative. Does the patient have a suspected source of infection? No. Patient's initial sepsis screen is negative. Risk Assessment: Do you want to hurt yourself or someone else? Patient reports no desire to harm self or others. Onset of symptoms was February 21, 2022. 07:55 Method Of Arrival: Ambulatory iw 07:55 Acuity: SARIKA 4 iw Historical: - Allergies: 07:56 PENICILLINS; iw 07:56 Tetanus Vaccines \T\ Toxoid; iw - PMHx: 07:56 Anxiety; Arthritis; Asthma; Depression; Diabetes - NIDDM; Hypertension; Thyroid problem;iw - PSHx: 07:56 section; iw Screenin:00 Abuse screen: Denies threats or abuse. Nutritional screening: No deficits noted. aa5 Tuberculosis screening: No symptoms or risk factors identified. Fall Risk None identified. Assessment: 07:57 General: Appears uncomfortable, Behavior is calm, cooperative. Pain: Complains of pain aa5 in back of neck Pain currently is 8 out of 10 on a pain scale. Quality of pain is described as pulling and stretching Pain began 2-3 days ago. Is intermittent, Aggravated by moving head up and down. Neuro: Level of Consciousness is awake, alert, obeys commands, Oriented to person, place, time, situation. Cardiovascular: Patient's skin is warm and dry. Respiratory: Airway is patent Respiratory effort is even, unlabored, Respiratory pattern is regular, symmetrical. GI: No signs and/or symptoms were reported involving the gastrointestinal system. : No signs and/or symptoms were reported regarding the genitourinary system. EENT: No signs and/or symptoms were reported regarding the EENT system. Derm: Skin is pink, warm \T\ dry. Musculoskeletal: Range of motion: intact in all extremities. 08:25 Reassessment: Patient is alert, oriented x 3, equal unlabored respirations, skin aa5 warm/dry/pink. Vital Signs: 07:55 BP 159 / 70; Pulse 75; Resp 16; Temp 97.0; Pulse Ox 99% on R/A; iw ED Course: 07:26 Patient arrived in ED. as 07:26 Xochitl Funez is Private Physician. as 07:56 Triage completed. iw 07:56 Arm band placed on Patient placed in an exam room, on a stretcher. aa5 07:56 Patient has correct armband on for positive identification. Bed in low position. Call aa5 light in reach. Side rails up X 1. 07:57 Laura Dillard, RN is Primary Nurse. aa5 08:02 Cuca Bustamante FNP-C is [facility]. kb 08:02 Rina Pham MD is Attending Physician. kb 08:25 No provider procedures requiring assistance completed. Patient did not have IV access aa5 during this emergency room visit. Administered Medications: No medications were administered Outcome: 08:11 Discharge ordered by . kb 08:25 Discharged to home ambulatory. aa5 08:25 Condition: stable 08:25 Discharge instructions given to patient, Instructed on discharge instructions, follow up and referral plans. medication usage, Demonstrated understanding of instructions, follow-up care, medications, Prescriptions given X 2. 08:27 Patient left the ED. aa5 Signatures: Cuca Bustamante FNP-C FNP-Ckb Martinez, Amelia as Williams, Irene, RN RN iw Laura Dillard, RN RN aa5 Corrections: (The following items were deleted from the chart) 08:43 08:34 Patient left the ED. aa5 aa5
[2022-02-23 08:40] VITALS: BP 159/70; TEMP 97; O2SAT 99
== END 2022-02-23 08:34 | disposition home or self-care (01) ==
LOC: ER 07:24
DX: S16.1XXA Strain of muscle, fascia and tendon at neck level, initial encounter (principal); I10 Essential (primary) hypertension; Z88.0 Allergy status to penicillin; Z88.7 Allergy status to serum and vaccine
CPT/HCPCS: 99282

== ENCOUNTER 2022-08-10 08:26 | Emergency (ER) | payer OTHER ==
--- OUTSIDE RECORDS SUMMARY | 2022-08-10 08:32 | XMS REPORT | Continuity of Care Document ---
:[address] [facility] t Address [address] [place] [address] [address]. [address] [place] [address] Care Team Providers Name Role Phone BRUNILDA ANDREZ Riya Primary Care Physician Unavailable Lashell ALAMO Attending Clinician Unavailable Lashell Francois Attending Clinician Wendy Fletcher MD Attending Clinician WENDY FLETCHER Attending Clinician Unavailable Payers Payer Name Policy Type Policy Number Effective Date Expiration Date S xiao MEDICARE PART A [id number] 2007 \\T\\ B 00:00:00 [place]ID [place] [id number] 2011 00:00:00 Problems Condition Condition Condition Status Onset Resolution Last Treating Co mments Source Name Details Category Date Date Treatment Clinician Date Encounter Encounter Disease Active Uni vers for for 10-04 ity of screening screening 00:00: David castillo mammogram mammogram 00 [facility] bernardo for breast for breast Br anch cancer cancer Morbid Morbid Disease Active Univers obesity obesity 10-04 ity of due to due to 00:00: [place] excess excess 00 Medical calories calories Branch [E66.01] [E66.01] Essential Essential Disease Active Uni vers hypertensi hypertensi - it y of on on 00:00: [place] 00 Medical [facility] Non-insuli Non-insuli Disease Active U aroldoers n n 10-04 ity of dependent dependent 00:00: David castillo type 2 type 2 00 Medical diabetes diabetes Branch mellitus mellitus Generalize Generalize Disease Active U nivers d anxiety d anxiety 10-04 ity of disorder disorder 00:00: [place] 00 Medical [place] Polyp at Polyp at Disease Active Unive rs cervical cervical 10-04 ity of os os 00:00: [place] 00 Medical [facility] Post-menop Post-menop Disease Active U nivers ause ause 10-04 ity of bleeding bleeding 00:00: [place] 00 Medical [place] Allergies, Adverse Reactions, Alerts Allergy Allergy Status [...] Active High Unknown-Cmnt Un jack INS Class 9-04 ity of 00:00: [place] 00 [facility] Social History Social Habit Start Date Stop Date Quantity Comments Source Exposure to Not sure [facility] SARS-CoV-2 (event) Medica l Branch Alcohol intake 2021-08-13 2021-08-13 0 /d [facility] 00:00:00 00:00:00 [facility] Tobacco use and 2016-10-04 2016-10-04 Never used [facility] exposure 00:00:00 00:00:00 [facility] Sex Ass[birth year] At [birth year] [facility] 00:00:00 00:00:00 [facility] Smoking Status Start Date Stop Date Source Never smoker [facility] Medications Ordered Filled Start Stop Current Ordering Indication Dosage Frequency Signature Comments Components Source Medication Medication Date Date Medication? Clinician (SIG) Name Name diclofenac 2020-09- No 75mg Take 75 mg Univers 75 mg EC 2-05 by mouth ity of tablet 12:23: 00:00 daily. [place] 25 :00 [facility] ibuprofen 2020-09 Yes [id number] 600mg Take 1 U nivers 600 mg 2-05 tablet by ity of tablet 00:00: mouth [place] 00 every 6 Medical (six) Branch hours as needed for Pain (scale 4-6). methocarbam 2020-09 Yes [id number] 500mg Take 1 Univers oL 500 mg [...] by mouth ity of tablet 09:11: daily. [address] metFORMIN Yes 500mg Take 500 Uni vers 500 mg 1-26 mg by ity of tablet 09:11: mouth as [place] [address] needed. [facility] diclofenac Yes 75mg Take 75 mg U nivers 75 mg EC 1-26 by mouth ity of tablet 09:11: daily. [address] lisinopril Yes 20mg Take 20 mg U nivers 20 mg 1-26 by mouth ity of tablet 09:11: daily. [address] metFORMIN Yes 500mg Take 500 Uni vers 500 mg 1-26 mg by ity of tablet 09:11: mouth as [place] [address] needed. [facility] Immunizations Ordered Filled Immunization Date Status Comments [facility] e Immunization Name Name Influenza Virus 2016-08-04 Completed Universit y of Vaccine 00:00:00 [facility] Influenza Virus 2016-08-04 Completed Universit y of Vaccine 00:00:00 [facility] TDAP (ADACEL) 1998-10-04 Completed University of VACCINE 00:00:00 [facility] TDAP (ADACEL) 1998-10-04 Completed University of VACCINE 00:00:00 [facility] Vital Signs Vital Name Observation Time Observation Value Comments Source Systolic blood 2021-08-13 17:30:00 151 mm[Hg] Univer sity of pressure [place] [facility] Diastolic blood 2021-08-13 17:30:00 58 mm[Hg] Unive rsity of pressure [place] [facility] Heart rate 2021-08-13 17:30:00 71 /min Universi ty [facility] [place] [facility] Body temperature 2021-08-13 17:30:00 36.56 Antonieta Univ ersity of [place] [facility] Respiratory rate 2021-08-13 17:30:00 18 /min Univ ersity of [place] [facility] Body weight 2021-08-13 17:30:00 122.471 kg [facility]i ty [facility] [place] [facility] BMI 2021-08-13 17:30:00 52.73 kg/m2 [facility] ty [facility] [place] [facility] Oxygen saturation in 2021-08-13 17:30:00 99 /min University of Arterial blood by [facility] Pulse oximetry Branch Systolic blood 2021-08-11 06:00:00 152 mm[Hg] Univer sity of pressure [place] [facility] Diastolic blood 2021-08-11 06:00:00 78 mm[Hg] Unive rsity of pressure [place] [facility] Heart rate 2021-08-11 06:00:00 85 /min Universi ty [facility] [place] [facility] Respiratory rate 2021-08-11 06:00:00 21 /min Univ ersity of [place] [facility] Oxygen saturation in 2021-08-11 06:00:00 100 /min University of Arterial blood by [facility] Pulse oximetry Branch Body temperature 2021-08-11 04:14:00 37.17 Antonieta Univ ersity of [place] [facility] Body weight 2021-08-11 04:14:00 122.471 kg Universi ty [facility] [place] [facility] BMI 2021-08-11 04:14:00 52.73 kg/m2 [facility] ty [facility] [place] [facility] Procedures Procedure Date / Time Performed Performing Clinician Sour e NOTICE OF PRIVACY 2021-08-11 04:02:07 Doctor Unassigned, [facility] Name [facility] CONSENT/REFUSAL FOR 2021-08-11 04:00:02 Doctor Unassigned, [facility] [place] [facility] DIAGNOSIS AND Name Medical Branch TREATMENT Encounters Start End Encounter Admission Attending Care Care Encounter Source Date/Time Date/Time Type Type Clinicians Facility Department ID 2021-08-13 2021-08-13 Emergency X Lashell ALAMO [email or web address] ERT [id number] Univers 11:30:00 12:28:00 ity of [facility] 2021-08-13 2021-08-13 Emergency Lashell Alamo [facility] [[email or web address]] [id number] Univers 11:30:00 12:28:00 Ivette QUIROZ [id number] i ty of [place] [id number] [facility] [id number] [address] 2021-08-10 2021-08-11 Emergency [facility] [id number] Univers 22:16:00 00:16:00 Wendy QUIROZ [id number] ity of [place] [id number] [facility] [id number] [address] 2021-08-10 2021-08-11 Emergency [facility] ERT [id number] Univers 22:16:00 00:16:00 WENDY hogan [facility] Results This patient has no known results.
[2022-08-10 09:01] LABS: Absolute Lymphocytes (CBC) 1.6 K/uL (0.7-4.9); Hematocrit 42.3 % (36.0-45.0); Lymphocytes % 27.9 % (15.3-44.8); MCV 86.8 fL (80-100); MPV 8.8 fL (7.6-11.3); RBC Red Blood Cell Count 4.87 M/uL (3.86-4.86)
--- NOTE | 2022-08-10 09:04 | RAD REPORT ---
EXAM DESCRIPTION: RAD - Chest Single View - 08/10/2022 8:54 am CLINICAL HISTORY: PALPITATIONS COMPARISON: Chest Single View dated 03/15/2021; Chest Single View dated 07/11/2020; Chest Single View d ated 02/01/2020; Chest Single View dated 06/11/2018 FINDINGS: Lines: None. Lungs: No evidence of edema or pneumonia. Pleural: No significant pleural effusions or pneumothorax. Cardiac: The heart size is within normal limits. Mediastinum: Within normal limits. Bones: No acute fractures. Other: None IMPRESSION: No acute cardiopulmonary disease.
[2022-08-10 09:25] LABS: Potassium 4.1 mmol/L (3.5-5.1); Troponin High Sensitivity 5.7 pg/mL (<58.9)
--- NOTE | 2022-08-10 09:30 | ER ---
Nurse's Notes [facility] Name: Justina Yoo Age: 62 yrs Sex: Female : 1960 Arrival Date: 08/10/2022 Time: 08:31 Bed 4 Private MD: Diagnosis: Palpitations;Atrial premature depolarization Presentation: 08/10 08:42 Chief complaint: Patient states: Sent by PCP's office this morning for low pulse. PT ss reports at home, she checked her pulse with a pulse oximeter and it read, 30. She went to her PCP and they also got a reading of 30 on the pulse ox. Pt has no complaints other than feeling anxious about her pulse possibly being that low. Coronavirus screen: Client denies travel out of the [place] in the last 14 days. Ebola Screen: Patient denies exposure to infectious person. Patient denies travel to an Ebola-affected area in the 21 days before illness onset. Initial Sepsis Screen: Does the patient meet any 2 criteria? No. Patient's initial sepsis screen is negative. Does the patient have a suspected source of infection? No. Patient's initial sepsis screen is negative. Risk Assessment: Do you want to hurt yourself or someone else? Patient reports no desire to harm self or others. Onset of symptoms is unknown. 08:42 Method Of Arrival: Ambulatory ss 08:42 Acuity: SARIKA 3 ss Triage Assessment: 08:45 General: Appears in no apparent distress. obese, Behavior is cooperative, appropriate bp for age, anxious. Pain: Denies pain. EENT: No deficits noted. Neuro: Level of Consciousness is awake, alert, obeys commands, Oriented to Appropriate for age. Cardiovascular: Rhythm is sinus rhythm. Respiratory: No deficits noted. GI: No signs and/or symptoms were reported involving the gastrointestinal system. : No signs and/or symptoms were reported regarding the genitourinary system. Derm: No deficits noted. Musculoskeletal: No deficits noted. Historical: - Allergies: 08:46 PENICILLINS; ss 08:46 Tetanus Vaccines \T\ Toxoid; ss - PMHx: 08:46 Anxiety; Arthritis; Asthma; Depression; Diabetes - NIDDM; Hypertension; Thyroid problem;ss - PSHx: 08:46 section; ss - Immunization history:: Client reports receiving the 2nd dose of the Covid vaccine. - Social history:: Smoking status: Patient denies any tobacco usage or history of. - Family history:: not pertinent. - Hospitalizations: : No recent hospitalization is reported. Screenin:48 Abuse screen: Denies threats or abuse. Denies injuries from another. Nutritional ss screening: No deficits noted. Tuberculosis screening: Never had TB. Fall Risk None identified. Assessment: 09:24 General: SEE TRIAGE NOTE. bp 09:44 Reassessment: PT DC HOME AMBULATORY. bp Vital Signs: 08:42 BP 120 / 90; Pulse 76; Resp 19; Temp 98.4(O); Pulse Ox 98% on R/A; Weight 127.01 kg; ss Pain 0/10; ED Course: 08:31 Patient arrived in ED. rg4 08:32 Jeff Suarez MD is Attending Physician. rn 08:32 John Napoles, TSERING is Primary Nurse. bp 08:45 Patient has correct armband on for positive identification. Placed in gown. Bed in low mm9 position. Call light in reach. Side rails up X 1. Warm blanket given. quality assurance monitor chassis on. Pulse ox on. NIBP on. 08:46 Triage completed. ss 08:46 Antipyretic given from triage as ordered by the ER provider. Arm band placed on right ss wrist. 08:46 Troponin HS Sent. mm9 08:48 Patient maintains SpO2 saturation greater than 95% on room air. ss 08:50 Inserted saline lock: 20 gauge in left antecubital area, using aseptic technique. Blood bp collected. 08:56 XRAY Chest (1 view) In Process Unspecified. EDMS 09:44 No provider procedures requiring assistance completed. IV discontinued, intact, bp bleeding controlled, No redness/swelling at site. Pressure dressing applied. Administered Medications: No medications were administered Medication: 09:44 VIS not applicable for this client. bp Outcome: 09:29 Discharge ordered by . rn 09:44 Discharged to home ambulatory. bp 09:44 Condition: stable 09:44 Discharge instructions given to patient, Instructed on discharge instructions, follow up and referral plans. Demonstrated understanding of instructions, follow-up care. 09:46 Patient left the ED. bp Signatures: Dispatcher [employer] EDMS Jeff Suarez MD MD rn Smirch, Shelby, RN RN Ange Toribio rg4 John Napoles, TSERING RN bp Luke, Lisette mm9
--- NOTE | 2022-08-10 09:30 | EDPHYS ---
Physician Documentation [facility] Name: Justina Yoo Age: 62 yrs Sex: Female : 1960 Arrival Date: 08/10/2022 Time: 08:31 Bed 4 Private MD: ED Physician Jeff Suarez HPI: 08/10 08:42 This 62 yrs old Female presents to ER via Unassigned with complaints of Low rn Pulse. 08:42 The patient presents with a history of irregular heart beat. Onset: The rn symptoms/episode began/occurred yesterday. Duration: The patient or guardian reports multiple episodes, that are intermittent. Modifying factors: The symptoms are aggravated by nothing. The symptoms are alleviated by nothing. Associated signs and symptoms: Pertinent positives: anxiety, Pertinent negatives: chest pain, cough, fever, SOB, syncope. Severity of symptoms: At their worst the symptoms were mild in the emergency department the symptoms are unchanged. The patient has experienced similar episodes in the past. The patient has been recently seen by a physician:. Pt reports started feeling irregular heart beat yesterday, pulse ox showed normal oxygen but heart rate in 30s. Went to see pcp today and again HR on pulse ox was in 30s, so sent here for evaluation. No ECG or monitor strip obtained, only pulse ox. Patient reports feels her heart rate faster than 30s. No fever. NO chest pain. NO sob. No recent medication changes. . Historical: - Allergies: 08:46 PENICILLINS; ss 08:46 Tetanus Vaccines \T\ Toxoid; ss - PMHx: 08:46 Anxiety; Arthritis; Asthma; Depression; Diabetes - NIDDM; Hypertension; Thyroid problem;ss - PSHx: 08:46 section; ss - Immunization history:: Client reports receiving the 2nd dose of the Covid vaccine. - Social history:: Smoking status: Patient denies any tobacco usage or history of. - Family history:: not pertinent. - Hospitalizations: : No recent hospitalization is reported. ROS: 08:42 Constitutional: Negative for fever, chills, and weight loss, Eyes: Negative for injury, rn pain, redness, and discharge, Neck: Negative for injury, pain, and swelling, Cardiovascular: Negative for chest pain, and edema Respiratory: Negative for shortness of breath, cough, wheezing, and pleuritic chest pain, Abdomen/GI: Negative for abdominal pain, nausea, vomiting, diarrhea, and constipation, MS/Extremity: Negative for injury and deformity, Skin: Negative for injury, rash, and discoloration, Neuro: Negative for headache, weakness, numbness, tingling, and seizure. Exam: 08:42 Constitutional: This is a well developed, well nourished patient who is awake, alert, rn and in no acute distress. Head/Face: Normocephalic, atraumatic. Cardiovascular: Regular rate and rhythm. No pulse deficits. Respiratory: No increased work of breathing, no retractions or nasal flaring. Abdomen/GI: Soft, non-tender Skin: Warm, dry MS/ Extremity: Pulses equal, no cyanosis. Neuro: Awake and alert, GCS 15 09:06 ECG was reviewed by the Attending Physician. rn Vital Signs: 08:42 BP 120 / 90; Pulse 76; Resp 19; Temp 98.4(O); Pulse Ox 98% on R/A; Weight 127.01 kg; ss Pain 0/10; MDM: 08:32 Patient medically screened. rn 09:26 Differential diagnosis: arrythmia, dehydration, stress disorder. Data reviewed: vital rn signs, nurses notes, lab test result(s), EKG, radiologic studies, and as a result, I will discharge patient. Counseling: I had a detailed discussion with the patient and/or guardian regarding: the historical points, exam findings, and any diagnostic results supporting the discharge/admit diagnosis, lab results, radiology results, the need for outpatient follow up, to return to the emergency department if symptoms worsen or persist or if there are any questions or concerns that arise at home. Response to treatment: There is no appreciated change of the patient's symptoms at this time, and as a result, I will discharge patient. Special discussion: I discussed with the patient/guardian in detail that at this point there is no indication for admission to the hospital. It is understood, however, that if the symptoms persist or worsen the patient needs to return immediately for re-evaluation. Based on the history and exam findings, there is no indication for further emergent testing or inpatient evaluation. I discussed with the patient/guardian the need to see the primary care provider for further evaluation of the symptoms. ED course: NO evidence of bradycardia entire time here, has been in 70s, occasional PACs, no acute abnormalities in blood. Will dc home with instructions to f/u with pcp and given return precautions.. 08/10 08:41 Order name: Basic Metabolic Panel; Complete Time: 09: rn 08/10 08:41 Order name: CBC with Diff; Complete Time: 09: rn 08/10 08:41 Order name: NT PRO-BNP; Complete Time: 09: rn 08/10 08:41 Order name: Troponin HS; Complete Time: : rn 08/10 08:41 Order name: XRAY Chest (1 view); Complete Time: : rn 08/10 08:41 Order name: EKG; Complete Time: 08:41 rn 08/10 08:41 Order name: Cardiac monitoring; Complete Time: 08:46 rn 08/10 08:41 Order name: EKG - Nurse/Tech; Complete Time: 08:46 rn 08/10 08:41 Order name: IV Saline Lock; Complete Time: 08:50 rn 08/10 08:41 Order name: Labs collected and sent; Complete Time: 08:49 rn 08/10 08:41 Order name: O2 Per Protocol; Complete Time: 08:46 rn 08/10 08:41 Order name: O2 Sat Monitoring; Complete Time: 08:46 rn EC: Rate is 76 beats/min. Rhythm is irregular. QRS Stanley is Normal. PA interval is normal. rn QRS interval is normal. QT interval is normal. No Q waves. T waves are Normal. No ST changes noted. Clinical impression: Sinus rhythm with PACs. Interpreted by me. Reviewed by me. 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
[2022-08-10 09:53] VITALS: BP 120/90; TEMP 98.4; O2SAT 98
--- NOTE | 2022-08-13 13:56 | EKG ---
Test Date: 2022-08-10 Test Time: 08:39:11 Physician President: BP MEASUREMENT RESULTS: Intervals: Rate: 76 NC: 150 QRSD: 84 QT: 392 QTc: 441 [place]: P: 51 NC: 150 QRS: 74 T: 44 INTERPRETIVE STATEMENTS: Sinus rhythm with premature atrial complexes ST abnormality, possible digitalis effect Abnormal ECG Compared to ECG 07/11/2020 06:43:57 Atrial premature complex(es) now present ST (T wave) deviation now present Sinus tachycardia no longer present First degree AV block no longer present Electronically Signed On 08-13-22 13:53:29 HAND BLOCKER by Dave Aviles
== END 2022-08-10 09:46 | disposition home or self-care (01) ==
LOC: ER 08:26
DX: I49.1 Atrial premature depolarization (principal); I10 Essential (primary) hypertension; Z88.0 Allergy status to penicillin; Z88.7 Allergy status to serum and vaccine
CPT/HCPCS: 36415; 71045; 80048; 83880; 84484; 85025; 93005; 99285

== ENCOUNTER 2022-08-18 11:30 | Emergency (ER) | payer OTHER ==
--- OUTSIDE RECORDS SUMMARY | 2022-08-18 11:34 | XMS REPORT | Continuity of Care Document ---
:1960 Author Organization [facility] t Address [address] [place] [address] [address] [place] [address] Care Team Providers Name Role Phone BRUNILDA ANDREZ Riya Primary Care Physician Unavailable Lashell ALAMO Attending Clinician Unavailable Lashell Francois Attending Clinician Wendy Fletcher MD Attending Clinician WENDY FLETCHER Attending Clinician Unavailable Payers Payer Name Policy Type Policy Number Effective Date Expiration Date S xiao MEDICARE PART A [id number] 2007 \\T\\ [id number] 00:00:00 MEDICAID [place] [id number] 2011 00:00:00 Problems Condition Condition Condition Status Onset Resolution Last Treating Co mments Source Name Details Category Date Date Treatment Clinician Date Encounter Encounter Disease Active Uni vers for for 10-04 ity of screening screening 00:00: David castillo mammogram mammogram 00 [facility] bernardo for breast for breast Br anch [...] of disorder disorder 00:00: [place] 00 [facility] Disease Active Unive rs cervical cervical 10-04 ity of os os 00:00: [place] 00 [facility] Post-menop Post-menop Disease Active U nivers ause ause 10-04 ity of bleeding bleeding 00:00: [place] 00 [facility] Allergies, Adverse Reactions, Alerts Allergy Allergy Status [...] Class 9-04 ity of 00:00: [place] 00 [facility] Social History Social Habit Start Date Stop Date Quantity Comments Source Exposure to Not sure [facility] SARS-CoV-2 (event) Medica l Branch Alcohol intake 2021-08-13 2021-08-13 0 /d [facility] 00:00:00 00:00:00 [facility] Tobacco use and 2016-10-04 2016-10-04 Never used [facility] exposure 00:00:00 00:00:00 [facility] Sex Ass[birth year] [facility] 00:00:00 00:00:00 [facility] Smoking Status Start Date Stop Date Source Never smoker [facility] Medications Ordered Filled Start Stop Current Ordering Indication Dosage Frequency Signature Comments Components Source Medication Medication Date Date Medication? Clinician (SIG) Name Name diclofenac 2020-09- No 75mg Take 75 mg Univers 75 mg EC 2-05 by mouth ity of tablet 12:23: 00:00 daily. [place] 25 :00 [facility] Branch ibuprofen 2020-09 Yes [id number] 600mg Take 1 U nivers 600 mg 2-05 tablet by ity of tablet 00:00: mouth [place] 00 every 6 Medical (six) Branch hours as needed for Pain (scale 4-6). methocarbam 2020-09 Yes [id number] 500mg Take 1 Univers oL 500 mg [...] by mouth ity of tablet 09:11: daily. [address] metFORMIN Yes 500mg Take 500 Uni vers 500 mg 1-26 mg by ity of tablet 09:11: mouth as [place] [id number] needed. [facility] diclofenac Yes 75mg Take 75 mg U nivers 75 mg EC 1-26 by mouth ity of tablet 09:11: daily. [address] lisinopril Yes 20mg Take 20 mg U nivers 20 mg 1-26 by mouth ity of tablet 09:11: daily. [address] metFORMIN Yes 500mg Take 500 Uni vers 500 mg 1-26 mg by ity of tablet 09:11: mouth as [place] [id number] needed. [facility] Immunizations Ordered Filled Immunization Date Status Comments [facility] e Immunization Name Name Influenza Virus 2016-08-04 Completed Universit y of Vaccine 00:00:00 [facility] Influenza Virus 2016-08-04 Completed Universit y of Vaccine 00:00:00 [facility] TDAP (ADACEL) 1998-10-04 Completed University of VACCINE 00:00:00 [facility] TDAP (ADACEL) 1998-10-04 Completed University of VACCINE 00:00:00 [facility] Vital Signs Vital Name Observation Time Observation Value Comments Source Systolic blood 2021-08-13 17:30:00 151 mm[Hg] Univer sity of pressure [place] [facility] Diastolic blood 2021-08-13 17:30:00 58 mm[Hg] Unive rsity of pressure [place] [facility] Heart rate 2021-08-13 17:30:00 71 /min [facility] [place] [facility] Body temperature 2021-08-13 17:30:00 36.56 [place] Univ ersity [facility] [place] [facility] Respiratory rate 2021-08-13 17:30:00 18 /min Univ [facility] [place] [facility] Body weight 2021-08-13 17:30:00 122.471 kg [facility] [place] [facility] BMI 2021-08-13 17:30:00 52.73 kg/m2 [facility] [place] [facility] Oxygen saturation in 2021-08-13 17:30:00 99 /min University of Arterial blood by [facility] Pulse oximetry Branch Systolic blood 2021-08-11 06:00:00 152 mm[Hg] Univer sity of pressure [place] [facility] Diastolic blood 2021-08-11 06:00:00 78 mm[Hg] Unive rsity of pressure [place] [facility] Heart rate 2021-08-11 06:00:00 85 /min [facility] [place] [facility] Respiratory rate 2021-08-11 06:00:00 21 /min [facility] [place] [facility] Oxygen saturation in 2021-08-11 06:00:00 100 /min University of Arterial blood by [facility] Pulse oximetry Branch Body temperature 2021-08-11 04:14:00 37.17 [place] [facility] [place] [facility] Body weight 2021-08-11 04:14:00 122.471 kg [facility] [place] [facility] BMI 2021-08-11 04:14:00 52.73 kg/m2 [facility] [place] [facility] Procedures Procedure Date / Time Performed Performing Clinician Sour e NOTICE OF PRIVACY 2021-08-11 04:02:07 Doctor Unassigned, No [facility] PRACTICES Name Medical Branch CONSENT/REFUSAL FOR 2021-08-11 04:00:02 Doctor Unassigned, No [facility] DIAGNOSIS AND Name Medical Branch TREATMENT Encounters Start End Encounter Admission Attending Care Care Encounter Source Date/Time Date/Time Type Type Clinicians Facility Department ID 2021-08-13 2021-08-13 Emergency X Lashell ALAMO [facility] ERT [id number] Univers 11:30:00 12:28:00 ity of [facility] 2021-08-13 2021-08-13 Emergency Lashell Alamo [facility] [id number] Univers 11:30:00 12:28:00 Ivette QUIROZ [id number] i ty of [place] [id number] [facility] [id number] [address] 2021-08-10 2021-08-11 Emergency [facility] [id number] Univers 22:16:00 00:16:00 Wendy QUIROZ [id number] ity of [place] [id number] [facility] [id number] [address] 2021-08-10 2021-08-11 [facility] [id number] Univers 22:16:00 00:16:00 WENDY hogan [facility] Results This patient has no known results.
[2022-08-18] MEDS ORDERED: HYDROCODONE/APAP 5/325 MG TAB ONE (12:57)
--- NOTE | 2022-08-18 13:06 | RAD REPORT ---
EXAM DESCRIPTION: RAD - Knee Left 3 View - 08/18/2022 12:55 pm CLINICAL HISTORY: Swelling COMPARISON: 08/22/2018 FINDINGS/IMPRESSION: No acute fracture. Tricompartmental degenerative changes.
--- NOTE | 2022-08-18 13:09 | EDPHYS ---
Physician Documentation [facility] Name: Justina Yoo Age: 62 yrs Sex: Female : 1960 Arrival Date: 08/18/2022 Time: 11:31 Bed DIS3 Private MD: ED Physician Buddy Ríos HPI: 08/18 12:03 This 62 yrs old Female presents to ER via Unassigned with complaints of Knee snw Pain, Knee Injury, Fall Injury - 08/17. 12:03 The patient presents with a contusion, decreased range of motion, an injury, pain, that snw is acute. The complaints affect the left knee. Context: The problem was sustained at home, resulted from the patient falling, the patient can partially bear weight, must have assistance, Problem is a result from a previous injury: pt has a meniscus injury and appt with Dr. Sharif later in the month but she fell last pm and landed on her knee. Onset: The symptoms/episode began/occurred suddenly. Associated signs and symptoms: Pertinent positives: pain with bending and ambulation. Treatment prior to arrival includes: motrin tid. Severity of symptoms: At their worst the symptoms were moderate. as noted. as noted. ROS: 12:05 Constitutional: Negative for fever, chills, and weight loss, Eyes: Negative for injury, snw pain, redness, and discharge, ENT: Negative for injury, pain, and discharge, Neck: Negative for injury, pain, and swelling, Cardiovascular: Negative for chest pain, palpitations, and edema, Respiratory: Negative for shortness of breath, cough, wheezing, and pleuritic chest pain, Abdomen/GI: Negative for abdominal pain, nausea, vomiting, diarrhea, and constipation, Back: Negative for injury and pain, : Negative for injury, bleeding, discharge, and swelling, Skin: Negative for injury, rash, and discoloration, Neuro: Negative for headache, weakness, numbness, tingling, and seizure, Psych: Negative for depression, anxiety, suicide ideation, homicidal ideation, and hallucinations. 12:05 MS/extremity: Positive for decreased range of motion, swelling, tenderness, of the left knee. Exam: 12:05 Constitutional: This is a well developed, well nourished patient who is awake, alert, snw and in no acute distress. Head/Face: Normocephalic, atraumatic. Eyes: Pupils equal round and reactive to light, extra-ocular motions intact. Lids and lashes normal. Conjunctiva and sclera are non-icteric and not injected. Cornea within normal limits. Periorbital areas with no swelling, redness, or edema. ENT: Nares patent. No nasal discharge, no septal abnormalities noted. Tympanic membranes are normal and external auditory canals are clear. Oropharynx with no redness, swelling, or masses, exudates, or evidence of obstruction, uvula midline. Mucous membranes moist. Neck: Trachea midline, no thyromegaly or masses palpated, and no cervical lymphadenopathy. Supple, full range of motion without nuchal rigidity, or vertebral point tenderness. No Meningismus. Chest/axilla: Normal chest wall appearance and motion. Nontender with no deformity. No lesions are appreciated. Cardiovascular: Regular rate and rhythm with a normal S1 and S2. No gallops, murmurs, or rubs. Normal PMI, no JVD. No pulse deficits. Respiratory: Lungs have equal breath sounds bilaterally, clear to auscultation and percussion. No rales, rhonchi or wheezes noted. No increased work of breathing, no retractions or nasal flaring. Abdomen/GI: Soft, non-tender, with normal bowel sounds. No distension or tympany. No guarding or rebound. No evidence of tenderness throughout. Back: No spinal tenderness. No costovertebral tenderness. Full range of motion. 12:05 Skin: Appearance: normal except for affected area, injury, contusion(s), that are deep, of the left knee, and distal, frontal left knee. Vital Signs: 12:11 BP 159 / 63; Pulse 88; Resp 17; Temp 98.7; Pulse Ox 97% ; Weight 125.65 kg; Height 5 rs5 ft. 0 in. (152.40 cm); 12:11 Body Mass Index 54.10 (125.65 kg, 152.40 cm) rs5 MDM: 11:58 Patient medically screened. snw 13:29 Data reviewed: vital signs, nurses notes. Data interpreted: Pulse oximetry: on room air snw is 97 %. Interpretation: normal. Counseling: I had a detailed discussion with the patient and/or guardian regarding: the historical points, exam findings, and any diagnostic results supporting the discharge/admit diagnosis, radiology results, the need for outpatient follow up. 08/18 12:02 Order name: Knee Left 3 View XRAY; Complete Time: 13:07 snw Administered Medications: 12:58 Drug: [place] (HYDROcodone-acetaminophen) 5 mg-325 mg 1 tabs Route: PO; Disposition: 17:31 Co-signature as Attending Physician, Buddy Ríos MD I agree with the assessment and rt plan of care. Disposition Summary: 08/18/22 13:08 Discharge Ordered Location: Home snw Condition: Stable snw Diagnosis - Pain in left knee snw Followup: snw - With: Emergency Department - When: As needed - Reason: Worsening of condition Followup: snw - With: Private Physician - When: 5 - 6 days - Reason: Recheck today's complaints, Continuance of care, Re-evaluation by your physician Discharge Instructions: - Discharge Summary Sheet snw - Joint Pain snw - How to Use a Knee Brace snw - How to Use a Knee Immobilizer snw - How to Use Cold Therapy, [id number] snw - How to Use a Walker snw Forms: - Medication Reconciliation Form snw - Thank You Letter snw - Antibiotic Education snw - Prescription Opioid Use snw Prescriptions: - Tramadol 50 mg Oral Tablet - take 1 tablet by ORAL route every 8 hours as needed; 12 tablet; Refills: 0, snw Product Selection Permitted Signatures: Dispatcher [employer] Mary Johnson, DESTINEE-C FOUNDRY FINISHER-Csnw Vita Gutierrez, TSERING RN iw Buddy Ríos MD MD rt
--- NOTE | 2022-08-18 13:09 | ER ---
Nurse's Notes [facility] Name: Justina Yoo Age: 62 yrs Sex: Female : 1960 Arrival Date: 08/18/2022 Time: 11:31 Bed DIS3 Private MD: Diagnosis: Pain in left knee Presentation: 08/18 12:11 Chief complaint: Patient states: left knee pain. Coronavirus screen: At this time, the iw client does not indicate any symptoms associated with coronavirus-19. Ebola Screen: Patient negative for fever greater than or equal to 101.5 degrees Fahrenheit, and additional compatible Ebola Virus Disease symptoms Patient denies exposure to infectious person. Patient denies travel to an Ebola-affected area in the 21 days before illness onset. No symptoms or risks identified at this time. 12:11 Method Of Arrival: Wheelchair iw 12:11 Acuity: SARIKA 4 iw Vital Signs: 12:11 BP 159 / 63; Pulse 88; Resp 17; Temp 98.7; Pulse Ox 97% ; Weight 125.65 kg; Height 5 rs5 ft. 0 in. (152.40 cm); 12:11 Body Mass Index 54.10 (125.65 kg, 152.40 cm) rs5 ED Course: 11:31 Patient arrived in ED. am2 11:52 Mary Castellon FNP-C is [facility]. snw 11:52 Buddy Ríos MD is Attending Physician. snw 12:11 Triage completed. iw 12:36 Vita Gutierrez RN is Primary Nurse. iw 12:57 Knee Left 3 View XRAY In Process Unspecified. EDMS Administered Medications: 12:58 Drug: Healy (HYDROcodone-acetaminophen) 5 mg-325 mg 1 tabs Route: PO; iw Outcome: 13:08 Discharge ordered by . snw 13:35 Patient left the ED. iw Signatures: Dispatcher [employer] EDMS Mary Castellon FNP-C FNP-CsnVita Jones RN RN Patty Singer am2 Trevin Love rs5
[2022-08-18 20:04] VITALS: BP 159/63; TEMP 98.7; O2SAT 97
== END 2022-08-18 13:35 | disposition home or self-care (01) ==
LOC: ER 11:30
DX: M25.562 Pain in left knee (principal)
CPT/HCPCS: 99283

== ENCOUNTER 2022-10-18 10:46 | Emergency (ER) | payer OTHER ==
--- OUTSIDE RECORDS SUMMARY | 2022-10-18 10:57 | XMS REPORT | Continuity of Care Document ---
:1960 Author Organization [facility] t Address [address] [place] [address] Care Team Providers Name Role Phone Katerin Funez Primary Care Physician Gino Espinal MD Attending Clinician Lashell ALAMO Attending Clinician Unavailable Lashell Francois Attending Clinician Wendy Fletcher MD Attending Clinician WENDY FLETCHER Attending Clinician Unavailable Payers Payer Name Policy Type Policy Number Effective Date Expiration Date S ource Problems Condition Condition Condition Status Onset Resolution Last Treating Co mments Source Name Details Category Date Date Treatment Clinician Date Encounter Encounter Disease Active Uni vers for for 10-04 [place] 00 [facility] for breast for breast Br anch [...] n 10-04 [place] dependent dependent [place] type 2 type 2 00 Medical diabetes diabetes Branch mellitus mellitus Generalize Generalize Disease Active U sergio d anxiety d anxiety 10-04 ity of disorder disorder 00:00: [place] [facility] Polyp at Polyp at Disease Active Unive rs cervical cervical 10-04 ity of os os 00:00: [place] [facility] Post-menop Post-menop Disease Active U sergio kulkarin ause 10-04 ity of bleeding bleeding 00:00: [place] [facility] Allergies, Adverse Reactions, Alerts Allergy Allergy Status Severity Reaction(s) Onset Inactive Treating Comm ents Source Name Type Date Date Clinician Vaccine Propensi Active Other - See Per pt Un jack Adjuvant ty to comments 10-04 has ity of Emulsion adverse 00:00: swelling [place] [facility] reaction 00 to arm Medica l ion No. s and was Branch 1 told by md she had reaction and to no longer get a td vaccine d/t reaction VACCINE DRUG Active Swelling Univers ADJUVANT INGREDI 10-04 ity of EMULSION 00:00: [place] COMBINAT 00 Medical ION NO. Branch 1 Vaccine Propensi Active Other - See Per pt Un jack Adjuvant ty to comments 10-04 has ity of Emulsion adverse 00:00: swelling [place] As03 reaction 00 to arm Medical s and was Branch told by md she had reaction and to no longer get a td vaccine d/t reaction Penicill Propensi Active Unknown - Pt states Univers ins ty to See comments 9-04 " I don't i ty of adverse 00:00: know what [place] reaction 00 happens, Medica l s to all I Branch drug know is that I am allergic since I was little." PENICILL Drug Active High Unknown-Cmnt Un jack INS Class 9- ity of 00:00: [place] [facility] Penicill Propensi Active Unknown - Pt states Univers ins ty to See comments 9-04 " I don't i ty of adverse 00:00: know what [place] reaction 00 happens, Medica l s to all I Branch drug know is that I am allergic since I was little." Social History Social Habit Start Date Stop Date Quantity Comments Source Exposure to Not sure [facility] SARS-CoV-2 [place] [facility] (event) Branch Alcohol intake 2022-03-20 2022-03-20 0 /d University of 00:00:00 00:00:00 [facility] Branch Tobacco use and 2016-10-04 2016-10-04 Smokeless tobacco Un iversity of exposure 00:00:00 00:00:00 non-user [facility] Sex Assigned At [birth year] Universit y of 00:00:00 00:00:00 [facility] Smoking Status Start Date Stop Date Source Never smoked tobacco [facility] Medications Ordered Filled Start Stop Current Ordering Indication Dosage Frequency Signature Comments Components Source Medication Medication Date Date Medication? Clinician (SIG) Name Name diclofenac 2020-09- No 75mg Take 75 mg Univers 75 mg EC 2-05 12-05 by mouth ity of tablet 12:23: 00:00 daily. [place] 25 :00 Medical Branch ibuprofen 2020-09 Yes [id number] 600mg Take 1 U nivers 600 mg 2-05 tablet by ity of tablet 00:00: mouth [place] 00 every 6 Medical (six) Branch hours as needed for Pain (scale 4-6). methocarbam 2020-09 Yes [id number] 500mg Take 1 Univers oL 500 mg 2-05 tablet by ity o f tablet 00:00: mouth 4 [place] (four) Medical times Branch daily. ibuprofen 2020-09 Yes [id number] 600mg Take 1 U nivers 600 mg 2-05 tablet by ity of tablet 00:00: mouth [place] 00 every 6 Medical (six) Branch hours as needed for Pain (scale 4-6). methocarbam 2020-09 Yes [id number] 500mg Take 1 Univers oL 500 mg 2-05 tablet by ity o f tablet 00:00: mouth 4 [place] [id number] (four) Medical times Branch daily. FENTanyl PF 2020-09 75ug 75 mcg, Un jack (SUBLIMAZE 10-12 Intramuscu it y of (PF)) 06:00: 06:06 lar, ONCE, [place] injection 00 :00 1 dose, On Medi bernardo 75 mcg Fri Branch 08/11/21 at 0000, Routine lisinopril Yes 20mg Take 20 mg U nivers 20 mg -26 by mouth ity of tablet 09:11: daily. [place] 08 Medical Branch metFORMIN Yes 500mg Take 500 Uni vers 500 mg 1-26 mg by ity of tablet 09:11: mouth as [place] 08 needed. Medical Branch diclofenac Yes 75mg Take 75 mg U nivers 75 mg EC 1-26 by mouth ity of tablet 09:11: daily. [address] Branch lisinopril Yes 20mg Take 20 mg U nivers 20 mg 1-26 by mouth ity of tablet 09:11: daily. [address] Branch metFORMIN Yes 500mg Take 500 Uni vers 500 mg 1-26 mg by ity of tablet 09:11: mouth as [place] 08 needed. [facility] Branch lisinopril Yes 20mg Take 20 mg U nivers 20 mg 1-26 by mouth ity of tablet 09:11: daily. [address] metFORMIN Yes 500mg Take 500 Uni vers 500 mg 1-26 mg by ity of tablet 09:11: mouth as [place] 08 needed. [facility] Immunizations Ordered Filled Immunization Date Status Comments [facility] e Immunization Name Name Influenza Virus 2016-08-04 Completed Universit y of Vaccine 00:00:00 [facility] Influenza Virus 2016-08-04 Completed Universit y of Vaccine 00:00:00 [facility] Influenza Virus 2016-08-04 Completed Universit y of Vaccine 00:00:00 [facility] TDAP (ADACEL) 1998-10-04 Completed University of VACCINE 00:00:00 [facility] TDAP (ADACEL) 1998-10-04 Completed University of VACCINE 00:00:00 [facility] TDAP (ADACEL) 1998-10-04 Completed University of VACCINE 00:00:00 [facility] Vital Signs Vital Name Observation Time Observation Value Comments Source Systolic blood 2021-08-13 17:30:00 151 mm[Hg] Univer sity of pressure [facility] Diastolic blood 2021-08-13 17:30:00 58 mm[Hg] Unive rsity of pressure [facility] Heart rate 2021-08-13 17:30:00 71 /min [facility] Body temperature 2021-08-13 17:30:00 36.56 [place] [facility] Respiratory rate 2021-08-13 17:30:00 18 /min [facility] Body weight 2021-08-13 17:30:00 122.471 kg [facility] BMI 2021-08-13 17:30:00 52.73 kg/m2 [facility] Oxygen saturation in 2021-08-13 17:30:00 99 /min University of Arterial blood by [facility] Pulse oximetry Branch Systolic blood 2021-08-11 06:00:00 152 mm[Hg] Univer sity of pressure [facility] Diastolic blood 2021-08-11 06:00:00 78 mm[Hg] Unive rsity of pressure [facility] Heart rate 2021-08-11 06:00:00 85 /min Universi ty [facility] Respiratory rate 2021-08-11 06:00:00 21 /min [facility] Oxygen saturation in 2021-08-11 06:00:00 100 /min [facility] Arterial blood by [facility] Pulse oximetry Branch Body temperature 2021-08-11 04:14:00 37.17 [place] [facility] Body weight 2021-08-11 04:14:00 122.471 kg [facility] BMI 2021-08-11 04:14:00 52.73 kg/m2 [facility] Procedures Procedure Date / Time Performed Performing Clinician Sour e NOTICE OF PRIVACY 2021-08-11 04:02:07 Doctor Unassigned, No Univ [facility] Name [facility] CONSENT/REFUSAL FOR 2021-08-11 04:00:02 Doctor Unassigned, No Un [facility] DIAGNOSIS AND Name Medical [place] TREATMENT Encounters Start End Encounter Admission Attending Care Care Encounter Source Date/Time Date/Time Type Type Clinicians Facility Department ID 2022-09-14 2022-09-14 Telephone Teddy [facility] [id number] Univers 00:00:00 00:00:00 [facility] [id number] it y of GABRIELLA [id number] Matty as MIRTA?BLEA [id number] [address] MEDICAL OFFICE BUILDING 2021-08-13 2021-08-13 Emergency X Lashell ALAMO [facility] ERT [id number] Univers 11:30:00 12:28:00 ity of [facility] 2021-08-13 2021-08-13 Emergency Lashell Alamo [facility] [id number] Univers 11:30:00 12:28:00 Ivette QUIROZ [id number] i ty of [place] [id number] [facility] [id number] [place] [address] Branch 2021-08-10 2021-08-11 Emergency [facility] [id number] Univers 22:16:00 00:16:00 Wendy QUIROZ [id number] ity [facility] [id number] [facility] [id number] [place] [address] Branch 2021-08-10 2021-08-11 Emergency X [facility] ERT [id number] Univers 22:16:00 00:16:00 WENDY hogan [facility] Results This patient has no known results.
[2022-10-18] MEDS ORDERED: MECLIZINE HCL 12.5 MG TAB ONE (11:30)
[2022-10-18 11:39] LABS: Absolute Lymphocytes (CBC) 1.8 K/uL (0.7-4.9); Hematocrit 39.9 % (36.0-45.0); Lymphocytes % 26.8 % (15.3-44.8); MCV 86.3 fL (80-100); MPV 8.3 fL (7.6-11.3); RBC Red Blood Cell Count 4.63 M/uL (3.86-4.86)
--- NOTE | 2022-10-18 11:47 | RAD REPORT ---
EXAM DESCRIPTION: RAD - Chest Single View - 10/18/2022 11:38 am CLINICAL HISTORY: dizziness Chest pain. COMPARISON: Chest Single View dated 08/10/2022; Chest Single View dated 03/15/2021; Chest Single View d ated 07/11/2020; Chest Single View dated 02/01/2020 FINDINGS: Portable technique limits examination quality. Mild interstitial pulmonary edema seen. The heart is mildly enlarged in size. No displaced fractures. IMPRESSION: Mild CHF.
--- NOTE | 2022-10-18 11:47 | RAD REPORT ---
EXAM DESCRIPTION: CT - Head Brain Wo Cont - 10/18/2022 11:38 am CLINICAL HISTORY: DIZZINESS Headache, drowsiness COMPARISON: Head Brain Wo Cont dated 02/01/2020; HEAD BRAIN W O CONTRAST dated 04/10/2008 TECHNIQUE: All CT scans are performed using dose optimization technique as appropriate and may inclu de automated exposure control or mA/KV adjustment according to patient size. FINDINGS: No intracranial hemorrhage, hydrocephalus or extra-axial fluid collection.Small calcificat ions are present in the brain, unchanged.No areas of brain edema or evidence of midline shift. Left mastoid effusion. The paranasal sinuses and mastoids are otherwise clear. The calvarium is intac t. IMPRESSION: No acute intracranial abnormality. Mild left mastoid effusion.
[2022-10-18 12:01] LABS: Troponin High Sensitivity 5.2 pg/mL (<58.9)
--- NOTE | 2022-10-18 13:08 | EDPHYS ---
Physician Documentation [facility] Name: Justina Yoo Age: 62 yrs Sex: Female : 1960 Arrival Date: 10/18/2022 Time: 10:50 Bed 11 Private MD: ED Physician Buddy Ríos HPI: 10/18 11:16 This 62 yrs old Female presents to ER via Ambulatory with complaints of pm1 Dizziness. 11:16 The patient presents with sense of spinning, vertigo. Onset: The symptoms/episode pm1 began/occurred yesterday. Context: just prior to the episode the patient experienced no apparent symptoms. Modifying factors: the symptoms are aggravated by movement of head, standing up, changing position. Associated signs and symptoms: Pertinent negatives: abdominal pain, chest pain, nausea, shortness of breath, vomiting. Severity of symptoms: in the emergency department the symptoms are unchanged Pain is currently a 0 / 10. Patient's baseline: Neuro: alert and fully oriented, Motor: no deficits, Ambulation: walks without assistance, Speech: normal. The patient has not experienced similar symptoms in the past. The patient has not recently seen a physician, has an appointment scheduled, tomorrow. She talked to her PCP on the phone yesterday and was told it was vertigo. Historical: - Allergies: 10:56 PENICILLINS; aa5 10:56 Tetanus Vaccines \T\ Toxoid; aa5 - Home Meds: 10:56 lisinopril 10 mg Oral tab 1 tab once daily [Active]; metformin 500 mg Oral Tb24 1 tab aa5 once daily [Active]; clonidine HCl 0.1 mg oral tab twice a day for BP >140/90 [Active]; - PMHx: 10:56 Anxiety; Arthritis; Asthma; Depression; Diabetes - NIDDM; Hypertension; Thyroid problem;aa5 - PSHx: 10:56 section; aa5 - Immunization history:: Adult Immunizations unknown. - Social history:: Smoking status: Patient denies any tobacco usage or history of. ROS: 11:49 Constitutional: Negative for fever, chills, and weight loss. pm1 11:49 Cardiovascular: Negative for chest pain, palpitations, and edema, Respiratory: Negative for shortness of breath, cough, wheezing, and pleuritic chest pain, Abdomen/GI: Negative for abdominal pain, nausea, vomiting, diarrhea, and constipation, Back: Negative for injury and pain, MS/Extremity: Negative for injury and deformity, Skin: Negative for injury, rash, and discoloration. 11:49 ENT: Positive for tinnitus, to left ear for multiple months, Negative for ear pain. 11:49 Neuro: Positive for dizziness, Negative for gait disturbance, headache, weakness. 11:49 All other systems are negative. Exam: 11:49 Constitutional: This is a well developed, well nourished patient who is awake, alert, pm1 and in no acute distress. Head/Face: Normocephalic, atraumatic. 11:49 Back: No spinal tenderness. No costovertebral tenderness. Full range of motion. Skin: Warm, dry with normal turgor. Normal color with no rashes, no lesions, and no evidence of cellulitis. MS/ Extremity: Pulses equal, no cyanosis. Neurovascular intact. Full, normal range of motion. 11:49 Eyes: Extraocular movements: no acute changes, Conjunctiva: no acute changes, no injection, Nystagmus: horizontal nystagmus when looking rightwards. 11:49 ENT: External ear(s): no acute changes, Ear canal(s): no acute changes, TM's: no acute changes, Mouth: Lips: normal, moist, Oral mucosa: normal, pink and intact, moist. 11:49 Cardiovascular: Exam negative for acute changes, Rate: normal, Rhythm: regular, Pulses: no pulse deficits are appreciated. 11:49 Respiratory: Exam negative for acute changes, respiratory distress, shortness of breath, Breath sounds: are clear throughout. 11:49 Abdomen/GI: Exam negative for acute changes, Inspection: abdomen appears normal, Palpation: abdomen is soft and non-tender, in all quadrants. 11:49 Neuro: Exam negative for acute changes, Orientation: is normal, Mentation: is normal, Motor: is normal, moves all fours, Gait: is steady, at a normal pace, without difficulty. Vital Signs: 10:55 BP 136 / 85; Pulse 83; Resp 16 S; Temp 97.7(TE); Pulse Ox 100% on R/A; Weight 122.47 kg aa5 (R); Height 5 ft. 0 in. (152.40 cm) (R); Pain 0/10; 12:28 BP 134 / 64; Pulse 60; Resp 17; Pulse Ox 98% on R/A; kr3 13:00 BP 142 / 79; Pulse 62; Resp 18 S; Temp 98.0(TE); Pulse Ox 98% on R/A; Pain 0/10; aa5 10:55 Body Mass Index 52.73 (122.47 kg, 152.40 cm) aa5 MDM: 11:02 Patient medically screened. pm1 13:05 Data reviewed: vital signs. pm1 13:05 ED course: Patient's vertigo markedly improved with meclizine . pm1 13:05 Counseling: I had a detailed discussion with the patient and/or guardian regarding: the pm1 historical points, exam findings, and any diagnostic results supporting the discharge/admit diagnosis, lab results, radiology results, the need for outpatient follow up, an ENT specialist, to return to the emergency department if symptoms worsen or persist or if there are any questions or concerns that arise at home. 13:05 Special discussion: I discussed with the patient the need to follow-up with the pm1 PCP/specialist for the noted incidental finding on X-ray/CT scanning. mild CHF findings. Patient is not symptomatic for CHF. Discussed need to follow up with emc storage architect. 10/18 11:16 Order name: Basic Metabolic Panel; Complete Time: 12:01 pm10/18 11:16 Order name: CBC with Diff; Complete Time: 11:56 pm10/18 11:16 Order name: CT Head Brain wo Cont; Complete Time: 11:48 pm10/18 11:16 Order name: Troponin HS; Complete Time: 12:01 pm10/18 11:16 Order name: XRAY Chest (1 view); Complete Time: 11:48 pm10/18 11:16 Order name: EKG; Complete Time: 11:17 pm10/18 11:16 Order name: Cardiac monitoring; Complete Time: 11:25 pm10/18 11:16 Order name: EKG - Nurse/Tech; Complete Time: 11:25 pm10/18 11:16 Order name: IV Saline Lock; Complete Time: 11:25 pm10/18 11:16 Order name: Labs collected and sent; Complete Time: 11:25 pm10/18 11:16 Order name: O2 Per Protocol; Complete Time: 11:25 pm1 10/18 11:16 Order name: O2 Sat Monitoring; Complete Time: 11:25 pm1 EC:24 Rate is 68 beats/min. Rhythm is regular, Normal Sinus Rhythm. QRS [place] is Normal. SC pm1 interval is normal. QRS interval is normal. QT interval is normal. No Q waves. T waves are Normal. No ST changes noted. Clinical impression: Normal sinus rhythm with sinus arrhythmia. Administered Medications: 11:33 Drug: Meclizine 25 mg Route: PO; aa5 13:00 Follow up: Response: No adverse reaction; Marked relief of symptoms aa5 Disposition: 14:33 Co-signature as Attending Physician, Buddy Ríos MD I reviewed the patient's care rt provided by the Advanced Practice Provider and agree with the diagnosis and treatment plan. Disposition Summary: 10/18/22 13:07 Discharge Ordered Location: Home pm1 Problem: new pm1 Symptoms: have improved pm1 Condition: Stable pm1 Diagnosis - Benign paroxysmal vertigo, left ear pm1 Followup: pm1 - With: Emergency Department - When: As needed - Reason: Worsening of condition Followup: pm1 - With: Private Physician - When: 2 - 3 days - Reason: Recheck today's complaints, Continuance of care, Re-evaluation by your physician Discharge Instructions: - Discharge Summary Sheet pm1 - Benign Positional Vertigo pm1 Forms: - Medication Reconciliation Form pm1 - Thank You Letter pm1 - Antibiotic Education pm1 - Prescription Opioid Use pm1 Prescriptions: - Meclizine 25 mg Oral Tablet - take 1 tablet by ORAL route every 8 hours As needed; 30 tablet; Refills: 0, pm1 Product Selection Permitted Signatures: Dispatcher [employer] EDLaura Del Rio, RN RN aa5 Lex [place], TORI FUNERAL DIRECTOR/EMBALMER/OWNER pm1 Buddy Ríos MD MD rt
--- NOTE | 2022-10-18 13:08 | ER ---
Nurse's Notes [facility] Name: Justina Yoo Age: 62 yrs Sex: Female : 1960 Arrival Date: 10/18/2022 Time: 10:50 Bed 11 Private MD: Diagnosis: Benign paroxysmal vertigo, left ear Presentation: 10/18 10:55 Chief complaint: Patient states: "I've been dizzy since yesterday". Pt also reports aa5 ringing to left ear "for a long time". Pt reports she took clonidine 0.1 mg last night and today. Coronavirus screen: At this time, the client does not indicate any symptoms associated with coronavirus-19. Ebola Screen: Patient denies travel to an Ebola-affected area in the 21 days before illness onset. Initial Sepsis Screen: Does the patient meet any 2 criteria? No. Patient's initial sepsis screen is negative. Does the patient have a suspected source of infection? No. Patient's initial sepsis screen is negative. Risk Assessment: Do you want to hurt yourself or someone else? Patient reports no desire to harm self or others. Onset of symptoms was October 2022. 10:55 Acuity: SARIKA 3 aa5 10:55 Method Of Arrival: Ambulatory aa5 Triage Assessment: 11:00 General: Appears uncomfortable, Behavior is calm, cooperative. Pain: Denies pain. EENT: aa5 Reports ringing in left ear. Neuro: Level of Consciousness is awake, alert, obeys commands, Oriented to person, place, time, situation, [employer] Lead are equal bilaterally Moves all extremities. Gait is steady, Speech is normal, Facial symmetry appears normal, Pupils are PERRLA, Reports dizziness. Cardiovascular: Heart tones S1 S2 present Rhythm is regular. Respiratory: Airway is patent Respiratory effort is even, unlabored, Respiratory pattern is regular, symmetrical. GI: No signs and/or symptoms were reported involving the gastrointestinal system. : No signs and/or symptoms were reported regarding the genitourinary system. Derm: Skin is pink, warm \\T\\ dry. Musculoskeletal: Range of motion: intact in all extremities. Historical: - Allergies: 10:56 PENICILLINS; aa5 10:56 Tetanus Vaccines \\T\\ Toxoid; aa5 - Home Meds: 10:56 lisinopril 10 mg Oral tab 1 tab once daily [Active]; metformin 500 mg Oral Tb24 1 tab aa5 once daily [Active]; clonidine HCl 0.1 mg oral tab twice a day for BP >140/90 [Active]; - PMHx: 10:56 Anxiety; Arthritis; Asthma; Depression; Diabetes - NIDDM; Hypertension; Thyroid problem;aa5 - PSHx: 10:56 section; aa5 - Immunization history:: Adult Immunizations unknown. - Social history:: Smoking status: Patient denies any tobacco usage or history of. Screenin:00 [facility] ED Fall Risk Assessment (Adult) History of falling in the last 3 months, aa5 including since admission No falls in past 3 months (0 pts) Confusion or Disorientation No (0 pts) Intoxicated or Sedated No (0 pts) Impaired Gait No (0 pts) Mobility Assist Device Used No (0 pt) Altered Elimination No (0 pt) Score/Fall Risk Level 0 - 2 = Low Risk. Abuse screen: Denies threats or abuse. Nutritional screening: No deficits noted. Tuberculosis screening: No symptoms or risk factors identified. Assessment: 11:34 Reassessment: Patient is alert, oriented x 3, equal unlabored respirations, skin aa5 warm/dry/pink. x-ray at bedside. 12:28 Reassessment: Patient appears in no apparent distress at this time. Patient and/or kr3 family updated on plan of care and expected duration. Pain level reassessed. Patient is alert, oriented x 3, equal unlabored respirations, skin warm/dry/pink. 13:00 Reassessment: Patient is alert, oriented x 3, equal unlabored respirations, skin aa5 warm/dry/pink. Patient states feeling better. Patient states symptoms have improved. Vital Signs: 10:55 BP 136 / 85; Pulse 83; Resp 16 S; Temp 97.7(TE); Pulse Ox 100% on R/A; Weight 122.47 kg aa5 (R); Height 5 ft. 0 in. (152.40 cm) (R); Pain 0/10; 12:28 BP 134 / 64; Pulse 60; Resp 17; Pulse Ox 98% on R/A; kr3 13:00 BP 142 / 79; Pulse 62; Resp 18 S; Temp 98.0(TE); Pulse Ox 98% on R/A; Pain 0/10; aa5 10:55 Body Mass Index 52.73 (122.47 kg, 152.40 cm) aa5 ED Course: 10:50 Patient arrived in ED. am2 10:55 Arm band placed on. aa5 10:55 Patient has correct armband on for positive identification. aa5 10:56 Triage completed. aa5 11:02 Lex Lima NP is PHCP. pm1 11:02 Buddy Ríos MD is Attending Physician. pm1 11:09 Vita Gutierrez, TSERING is Primary Nurse. iw 11:23 EKG done, by ED staff, reviewed by Lex Lima NP. aa5 11:32 Initial lab(s) drawn, by ut, sent to lab. Inserted saline lock: 22 gauge in right aa5 forearm, using aseptic technique. Blood collected. 11:39 CT Head Brain wo Cont In Process Unspecified. EDMS 11:40 XRAY Chest (1 view) In Process Unspecified. EDMS 13:07 No provider procedures requiring assistance completed. IV discontinued, intact, aa5 bleeding controlled, No redness/swelling at site. Pressure dressing applied. Administered Medications: 11:33 Drug: Meclizine 25 mg Route: PO; aa5 13:00 Follow up: Response: No adverse reaction; Marked relief of symptoms aa5 Medication: 13:08 VIS not applicable for this client. aa5 Outcome: 13:07 Discharge ordered by . pm1 13:25 Discharged to home ambulatory. aa5 13:25 Condition: improved 13:25 Discharge instructions given to patient, Instructed on discharge instructions, follow up and referral plans. medication usage, Demonstrated understanding of instructions, follow-up care, medications, Prescriptions given X 1. 13:25 Patient left the ED. aa5 Signatures: Dispatcher [employer] EDMS Vita Gutierrez, RN TSERING iw Laura Dillard RN RN aa5 Lex Lima NP STAFF DEVELOPMENT NURSE pm1 Patty Singer am2 Radha Mata RN RN kr3
[2022-10-18 13:40] VITALS: O2SAT 98
[2022-10-18 13:50] VITALS: BP 142/79; TEMP 98
== END 2022-10-18 13:25 | disposition home or self-care (01) ==
LOC: ER 10:46
DX: H81.12 Benign paroxysmal vertigo, left ear (principal); E11.9 Type 2 diabetes mellitus without complications; I10 Essential (primary) hypertension; Z88.0 Allergy status to penicillin; Z88.7 Allergy status to serum and vaccine
CPT/HCPCS: 93005; 85025; 80048; 36415; 84484; 70450; 71045; 99284; J8597

== ENCOUNTER 2022-11-01 23:08 | Emergency (ER) | payer OTHER ==
--- OUTSIDE RECORDS SUMMARY | 2022-11-01 23:11 | XMS REPORT | Continuity of Care Document ---
:[address] [facility] t Address [address] [place] [address] Care Team Providers Name Role Phone Katerin [...] [place] 00 [facility] for breast for breast Br anch [...] Branch Post-menop Post-menop Disease Active U sergio kulkarni ause 10-04 ity of bleeding bleeding 00:00: [...] Quantity Comments Source Exposure to Not sure [facility] SARS-CoV-2 [place] [facility] (event) Branch Alcohol intake 2022-03-20 2022-03-20 0 /d University of 00:00:00 00:00:00 [facility] Branch Tobacco use and 2016-10-04 2016-10-04 Smokeless tobacco Un iversity of exposure 00:00:00 00:00:00 non-user [facility] Sex Assigned At [birth year] Universit y of 00:00:00 00:00:00 [facility] Smoking Status Start Date Stop Date Source Never smoked tobacco [facility] Medications Ordered Filled Start Stop Current Ordering Indication Dosage Frequency Signature Comments Components Source Medication Medication Date Date Medication? Clinician (SIG) Name Name diclofenac 2020-09- No 75mg Take 75 mg Univers 75 mg EC 2-05 12-05 by mouth ity of tablet 12:23: 00:00 daily. [place] 25 :00 Medical Branch ibuprofen 2020-09 Yes [id number] 600mg Take 1 U nivers 600 mg 2-05 tablet by ity of tablet 00:00: mouth [place] 00 every 6 Medical (six) Branch hours as needed for Pain (scale 4-6). methocarbam 2020-09 Yes [id number] 500mg Take 1 Univers oL 500 mg 2-05 tablet by ity o f tablet 00:00: mouth 4 [place] (four) Medical times Branch daily. ibuprofen 2020-09 Yes [id number] 600mg Take 1 U nivers 600 mg 2-05 tablet by ity of tablet 00:00: mouth [place] 00 every 6 Medical (six) Branch hours as needed for Pain (scale 4-6). methocarbam 2020-09 Yes [id number] 500mg Take 1 Univers oL 500 mg 2-05 tablet by ity o f tablet 00:00: mouth 4 [place] [id number] (four) Medical times Branch daily. FENTanyl PF 2020-09 75ug 75 mcg, Un jack (SUBLIMAZE 10-12 Intramuscu it y of (PF)) 06:00: 06:06 lar, ONCE, [place] injection 00 :00 1 dose, On Medi bernardo 75 mcg Fri Branch 08/11/21 at 0000, Routine lisinopril Yes 20mg Take 20 mg U nivers 20 mg -26 by mouth ity of tablet 09:11: daily. [place] 08 Medical Branch metFORMIN Yes 500mg Take 500 Uni vers 500 mg 1-26 mg by ity of tablet 09:11: mouth as [place] 08 needed. Medical Branch diclofenac Yes 75mg Take 75 mg U nivers 75 mg EC 1-26 by mouth ity of tablet 09:11: daily. [address] Branch lisinopril Yes 20mg Take 20 mg U nivers 20 mg 1-26 by mouth ity of tablet 09:11: daily. [address] Branch metFORMIN Yes 500mg Take 500 Uni vers 500 mg 1-26 mg by ity of tablet 09:11: mouth as [place] 08 needed. [facility] Branch lisinopril Yes 20mg Take 20 mg U nivers 20 mg 1-26 by mouth ity of tablet 09:11: daily. [address] metFORMIN Yes 500mg Take 500 Uni vers 500 mg 1-26 mg by ity of tablet 09:11: mouth as [place] 08 needed. [facility] Immunizations Ordered Filled Immunization Date Status Comments [facility] e Immunization Name Name Influenza Virus 2016-08-04 [...] 17:30:00 151 mm[Hg] Univer sity of pressure [facility] Diastolic blood 2021-08-13 17:30:00 58 mm[Hg] Unive rsity of pressure [facility] Heart rate 2021-08-13 17:30:00 71 /min [facility] Body temperature 2021-08-13 17:30:00 36.56 [place] [facility] Respiratory rate 2021-08-13 17:30:00 18 /min [facility] Body weight 2021-08-13 17:30:00 122.471 kg [facility] BMI 2021-08-13 17:30:00 52.73 kg/m2 [facility] Oxygen saturation in 2021-08-13 17:30:00 99 /min University of Arterial blood by [facility] Pulse oximetry Branch Systolic blood 2021-08-11 06:00:00 152 mm[Hg] Univer sity of pressure [facility] Diastolic blood 2021-08-11 06:00:00 78 mm[Hg] Unive rsity of pressure [facility] Heart rate 2021-08-11 06:00:00 85 /min Universi ty [facility] Respiratory rate 2021-08-11 06:00:00 21 /min [facility] Oxygen saturation in 2021-08-11 06:00:00 100 /min [facility] Arterial blood by [facility] Pulse oximetry Branch Body temperature 2021-08-11 04:14:00 37.17 [place] [facility] Body weight 2021-08-11 04:14:00 122.471 kg [facility] BMI 2021-08-11 04:14:00 52.73 kg/m2 [facility] Procedures Procedure Date / Time Performed Performing Clinician Sour e NOTICE OF PRIVACY 2021-08-11 04:02:07 Doctor Unassigned, No Univ [facility] PRACTICES Name [facility] CONSENT/REFUSAL FOR 2021-08-11 04:00:02 Doctor Unassigned, No Un [facility] DIAGNOSIS AND Name [facility] [place] TREATMENT Encounters Start End Encounter Admission Attending Care Care Encounter Source Date/Time Date/Time Type Type Clinicians Facility Department ID 2022-09-14 2022-09-14 Telephone Teddy [facility] [id number] Univers 00:00:00 00:00:00 [facility] [id number] it y of GABRIELLA [id number] Matty as MIRTA?BLEA [id number] [address] MEDICAL OFFICE BUILDING 2021-08-13 2021-08-13 Emergency X Lashell ALAMO [facility] ERT [id number] Univers 11:30:00 12:28:00 ity of [facility] 2021-08-13 2021-08-13 Emergency Lashell Alamo [facility] [id number] Univers 11:30:00 12:28:00 Ivette QUIROZ [id number] i ty of [place] [id number] [facility] [id number] [place] [address] Branch 2021-08-10 2021-08-11 Emergency [facility] [id number] Univers 22:16:00 00:16:00 Wendy QUIROZ [id number] ity [facility] [id number] [facility] [id number] [place] [address] Branch 2021-08-10 2021-08-11 Emergency X [facility] ERT [id number] Univers 22:16:00 00:16:00 WENDY hogan [facility] Results This patient has no known results.
[2022-11-02] MEDS ORDERED: KETOROLAC 30 MG/ML INJ ONE (00:24)
[2022-11-02 00:48] LABS: Absolute Lymphocytes (CBC) 1.8 K/uL (0.7-4.9); Lymphocytes % 24.4 % (15.3-44.8); MCV 86.6 fL (80-100); RBC Red Blood Cell Count 4.62 M/uL (3.86-4.86)
[2022-11-02 00:57] LABS: Albumin 3.6 g/dL (3.4-5.0); Bilirubin Direct 0.2 mg/dL (0-0.2); Bilirubin Total 0.6 mg/dL (0.2-1.0); Magnesium 1.6 mg/dL (1.6-2.4); Potassium 3.5 mmol/L (3.5-5.1); Protein, Total 6.9 g/dL (6.4-8.2); Troponin High Sensitivity 6.4 pg/mL (<58.9)
--- NOTE | 2022-11-02 01:43 | EDPHYS ---
Physician Documentation [facility] Name: Justina Yoo Age: 62 yrs Sex: Female : 1960 Arrival Date: 11/01/2022 Time: 23:12 Bed 20 Private MD: ED Physician Jeff Suarez HPI: 11/01 23:40 This 62 yrs old Female presents to ER via Ambulatory with complaints of cp Shortness Of Breath. 23:40 The patient or guardian complains of pain, that is acute. cp 23:40 The complaints affect the left upper arm. Context: resulted from unknown cause. Onset: cp The symptoms/episode began/occurred last night. Treatment prior to arrival includes: no previous treatment. The patient has shortness of breath at rest. Onset: The symptoms/episode began/occurred today. Patient describes pain as ache that started in left upper arm and radiates to left lateral neck and down left arm. Pain started yesterday. C/o shortness of breath. Historical: - Allergies: 23:35 PENICILLINS; tw5 23:35 Tetanus Vaccines \T\ Toxoid; tw5 - PMHx: 23:35 Anxiety; Arthritis; Asthma; Depression; Diabetes - NIDDM; Hypertension; Thyroid problem;tw5 - PSHx: 23:35 section; tw5 - Immunization history:: Flu vaccine is up to date. - Social history:: Smoking status: Patient denies any tobacco usage or history of. ROS: 23:45 Constitutional: Negative for body aches, chills, fever, poor PO intake. cp 23:45 Eyes: Negative for injury, pain, redness, and discharge. cp 23:45 Neck: Positive for pain with movement, pain at rest, radiating pain to left lateral neck, Negative for injury or acute deformity, stiffness. 23:45 Cardiovascular: Negative for chest pain, edema, palpitations. 23:45 Respiratory: Positive for shortness of breath, at rest. Negative for cough, wheezing. 23:45 Abdomen/GI: Negative for abdominal pain, vomiting, diarrhea, constipation. 23:45 Back: Positive for pain at rest, pain with movement, of the left trapezius and left scapular area. 23:45 MS/extremity: Positive for pain, of the left upper arm, Negative for injury or acute deformity, decreased range of motion, paresthesias, weakness. 23:45 Neuro: Negative for altered mental status, dizziness, headache, loss of consciousness, numbness, syncope, tingling, weakness. 23:45 All other systems are negative. Exam: 23:46 ECG was reviewed by the Attending Physician. cp 23:50 Constitutional: The patient appears in no acute distress, alert, awake, cp non-diaphoretic, non-toxic, well developed, well nourished, anxious, obese. 23:50 Head/Face: Normocephalic, atraumatic. cp 23:50 Eyes: Periorbital structures: appear normal, Conjunctiva: normal, no exudate, no injection, Sclera: no appreciated abnormality, Lids and lashes: appear normal, bilaterally. 23:50 ENT: External ear(s): are unremarkable, Nose: is normal, Mouth: Lips: moist, Oral mucosa: pink and intact, moist, Posterior pharynx: Airway: no evidence of obstruction, patent. 23:50 Neck: External neck: tenderness, that is mild, of the left side of neck, , ROM/movement: limited range of motion, is not appreciated, nuchal rigidity, is not appreciated. 23:50 Chest/axilla: Inspection: normal, Palpation: is normal, no crepitus, no tenderness. 23:50 Cardiovascular: Rate: tachycardic, Rhythm: regular, Edema: is not appreciated, JVD: is not appreciated. 23:50 Respiratory: the patient does not display signs of respiratory distress, Respirations: normal, no use of accessory muscles, no retractions, labored breathing, is not present, Breath sounds: are clear throughout, no decreased breath sounds, no stridor, no wheezing. 23:50 Abdomen/GI: Exam negative for discomfort, distension, guarding, Inspection: abdomen appears normal. 23:50 Back: pain, that is mild, of the left trapezius and left scapular area, ROM is normal. 23:50 Musculoskeletal/extremity: Extremities: grossly normal except: noted in the left upper arm: pain, tenderness, ROM: full active range of motion, in the left shoulder, Pulses: noted to be 2+ in the left radial artery, the left arm Sensation intact. 23:50 Skin: no rash present. 23:50 Neuro: Orientation: to person, place \T\ time. Mentation: is normal, Cerebellar function: is grossly normal, Motor: moves all fours, strength is normal, Sensation: is normal. Vital Signs: 23:31 BP 165 / 102; Pulse 106; Resp 18; Temp 97.4; Pulse Ox 100% on R/A; Weight 120.2 kg; tw5 Height 5 ft. 0 in. (152.40 cm); Pain 6/10; 23:50 BP 169 / 76; Pulse 74; Resp 20 S; Pulse Ox 97% on R/A; ha1 11/02 00:40 BP 169 / 72; Pulse 76; Resp 18; Pulse Ox 98% on R/A; ha1 01:32 BP 138 / 65; Pulse 90; Resp 18 S; Pulse Ox 98% ; ha1 11/01 23:31 Body Mass Index 51.75 (120.20 kg, 152.40 cm) tw5 MDM: 11/01 23:46 Patient medically screened. cp 11/02 01:42 Data reviewed: vital signs, nurses notes, lab test result(s), EKG, radiologic studies, cp plain films. 01:42 Differential diagnosis: shoulder bursitis, shoulder strain, muscle strain Myocardial cp Infarction pneumonia, Pneumothorax Pulmonary Embolism. Consideration of Admission/Observation Escalation of care including admission/observation considered. I considered the following discharge prescriptions or medication management in the emergency department Medications were administered in the Emergency Department. See MAR. Test considered but Not performed: Ultrasound upper extremity. Counseling: I had a detailed discussion with the patient and/or guardian regarding: the historical points, exam findings, and any diagnostic results supporting the discharge/admit diagnosis, lab results, radiology results, the need for outpatient follow up, a family practitioner, to return to the emergency department if symptoms worsen or persist or if there are any questions or concerns that arise at home. Response to treatment: the patient's symptoms have markedly improved after treatment, and as a result, I will discharge patient. 11/01 23:37 Order name: Basic Metabolic Panel; Complete Time: : cp 11/01 23:37 Order name: CBC with Diff; Complete Time: : cp 11/01 23:37 Order name: LFT's; Complete Time: 01: cp 11/01 23:37 Order name: Magnesium; Complete Time: : cp 11/01 23:37 Order name: NT PRO-BNP; Complete Time: 01:19 cp 11/01 23:37 Order name: PT-INR; Complete Time: 01:19 cp 11/01 23:37 Order name: Troponin HS; Complete Time: 01:19 cp 11/01 23:37 Order name: XRAY Chest (1 view) cp 11/01 23:37 Order name: EKG; Complete Time: 23:38 cp 11/01 23:37 Order name: Cardiac monitoring; Complete Time: 00:36 cp 11/01 23:37 Order name: EKG - Nurse/Tech; Complete Time: 00:36 cp 11/01 23:37 Order name: IV Saline Lock; Complete Time: 00:36 cp 11/01 23:37 Order name: XRAY Shoulder LEFT 2 view cp 11/01 23:37 Order name: Labs collected and sent; Complete Time: 00:36 cp 11/01 23:37 Order name: O2 Per Protocol; Complete Time: 00:36 cp 11/01 23:37 Order name: O2 Sat Monitoring; Complete Time: 00:36 cp EC/23 23:46 Rate is 100 beats/min. Rhythm is regular. NC interval is normal. QRS interval is cp normal. QT interval is normal. T waves are Inverted in lead aVR. Interpreted by me. Reviewed by me. Administered Medications: 11/02 00:36 Drug: Ketorolac 15 mg Route: IVP; Site: left antecubital; ha1 01:00 Follow up: Response: No adverse reaction; Pain is decreased ha1 Disposition Summary: 11/02/22 01:43 Discharge Ordered Location: Home cp Problem: new cp Symptoms: have improved cp Condition: Stable cp Diagnosis - Pain in left upper arm cp - Shortness of breath cp Followup: cp - With: Private Physician - When: 2 - 3 days - Reason: Recheck today's complaints Discharge Instructions: - Discharge Summary Sheet cp - Musculoskeletal Pain cp - Shortness of Breath, Adult cp - Shoulder Range of Motion Exercises cp Forms: - Medication Reconciliation Form cp - Thank You Letter cp - Antibiotic Education cp - Prescription Opioid Use cp Prescriptions: - albuterol sulfate 90 mcg/actuation Inhalation HFA aerosol inhaler - inhale 1 puff by INHALATION route every 4-6 hours; 1 Inhaler; Refills: 0, cp Product Selection Permitted - Mobic 7.5 mg Oral Tablet - take 1 tablet by ORAL route once daily take with food; 20 tablet; Refills: 0, cp Product Selection Permitted - Medrol (Patrick) 4 mg Oral Tablets, Dose Pack - take 1 tablet by ORAL route as directed - follow package instructions; 1 cp packet; Refills: 0, Product Selection Permitted Addendum: 11/04/2022 07:42 Co-signature as Attending Physician, Jeff Suarez MD I reviewed the patient's care r n provided by the Advanced Practice Provider and agree with the diagnosis and treatment plan. Signatures: Dispatcher [employer] EDMS Jeff Suarez MD MD rn Page, Corey, PA PA cp Wood, Tiffany tw5 Josie Vick RN RN ha1
--- NOTE | 2022-11-02 01:43 | ER ---
Nurse's Notes [facility] Name: Justina Yoo Age: 62 yrs Sex: Female : 1960 Arrival Date: 11/01/2022 Time: 23:12 Bed 20 Private MD: Diagnosis: Pain in left upper arm;Shortness of breath Presentation: 11/01 23:31 Chief complaint: Patient states: "I have been feeling short of breath since yesterday tw5 at 8 PM. I also have pain in my left arm." Patient points that the pain goes up to her neck. Coronavirus screen: Vaccine status:. Ebola Screen: Patient negative for fever greater than or equal to 101.5 degrees Fahrenheit, and additional compatible Ebola Virus Disease symptoms Patient denies exposure to infectious person. Patient denies travel to an Ebola-affected area in the 21 days before illness onset. Initial Sepsis Screen: Does the patient meet any 2 criteria? No. Patient's initial sepsis screen is negative. Does the patient have a suspected source of infection? No. Patient's initial sepsis screen is negative. Risk Assessment: Do you want to hurt yourself or someone else? Patient reports no desire to harm self or others. Onset of symptoms was October 31, 2022 at 20:00. 23:31 Method Of Arrival: Ambulatory tw5 23:31 Acuity: SARIKA 2 tw5 Triage Assessment: 23:35 General: Appears uncomfortable, Behavior is calm, cooperative, appropriate for age. tw5 Pain: Complains of pain in left arm Pain currently is 8 out of 10 on a pain scale. Respiratory: Reports shortness of breath. 23:50 Respiratory: the patient has mild shortness of breath. ha1 23:50 Respiratory: Onset: The symptoms/episode began/occurred gradually. ha1 Historical: - Allergies: 23:35 PENICILLINS; tw5 23:35 Tetanus Vaccines \\T\\ Toxoid; tw5 - PMHx: 23:35 Anxiety; Arthritis; Asthma; Depression; Diabetes - NIDDM; Hypertension; Thyroid problem;tw5 - PSHx: 23:35 section; tw5 - Immunization history:: Flu vaccine is up to date. - Social history:: Smoking status: Patient denies any tobacco usage or history of. Screenin/24 00:41 Abuse screen: Denies threats or abuse. Denies injuries from another. Nutritional ha1 screening: No deficits noted. Tuberculosis screening: No symptoms or risk factors identified. Assessment: 11/01 23:50 General: Appears comfortable, Behavior is calm, cooperative. Pain: Complains of pain in ha1 left arm Pain does not radiate. Pain currently is 8 out of 10 on a pain scale. Quality of pain is described as pressure. Neuro: Level of Consciousness is awake, alert, obeys commands, Oriented to person, place, time, situation. Cardiovascular: Reports shortness of breath, Denies chest pain, Heart tones S1 S2 present Patient's skin is warm and dry. Respiratory: Reports shortness of breath at rest Airway is patent Respiratory effort is even, unlabored, Respiratory pattern is regular, symmetrical, Breath sounds are clear bilaterally. GI: No signs and/or symptoms were reported involving the gastrointestinal system. Abdomen is non-distended, obese, Bowel sounds present X 4 quads. : No signs and/or symptoms were reported regarding the genitourinary system. EENT: No signs and/or symptoms were reported regarding the EENT system. Derm: Skin is pink, warm \\T\\ dry. Musculoskeletal: Circulation, motion, and sensation intact. Range of motion: intact in all extremities. 23:50 Cardiovascular: Rhythm is regular. ha1 11/02 00:40 Reassessment: Patient and/or family updated on plan of care and expected duration. Pain ha1 level reassessed. Patient is alert, oriented x 3, equal unlabored respirations, skin warm/dry/pink. 01:32 Reassessment: Patient and/or family updated on plan of care and expected duration. Pain ha1 level reassessed. Patient is alert, oriented x 3, equal unlabored respirations, skin warm/dry/pink. Patient states feeling better. Patient states symptoms have improved. Vital Signs: 11/01 23:31 BP 165 / 102; Pulse 106; Resp 18; Temp 97.4; Pulse Ox 100% on R/A; Weight 120.2 kg; tw5 Height 5 ft. 0 in. (152.40 cm); Pain 6/10; 23:50 BP 169 / 76; Pulse 74; Resp 20 S; Pulse Ox 97% on R/A; ha1 11/02 00:40 BP 169 / 72; Pulse 76; Resp 18; Pulse Ox 98% on R/A; ha1 01:32 BP 138 / 65; Pulse 90; Resp 18 S; Pulse Ox 98% ; ha1 11/01 23:31 Body Mass Index 51.75 (120.20 kg, 152.40 cm) tw5 ED Course: 11/01 23:12 Patient arrived in ED. jj6 23:23 Romie Chavez PA is PHCP. cp 23:23 Jeff Suarez MD is Attending Physician. cp 23:35 Triage completed. tw5 23:35 Arm band placed on. tw5 23:50 Patient has correct armband on for positive identification. Placed in gown. Bed in low ha1 position. Call light in reach. Side rails up X 1. 11/02 00:10 No provider procedures requiring assistance completed. Inserted saline lock: 20 gauge ha1 in left antecubital area, using aseptic technique. 00:28 XRAY Chest (1 view) In Process Unspecified. EDMS 00:28 XRAY Shoulder LEFT 2 view In Process Unspecified. EDMS 00:30 Josie Vick, TSERING is Primary Nurse. ha1 02:10 IV discontinued, intact, bleeding controlled, No redness/swelling at site. Pressure ha1 dressing applied. Administered Medications: 00:36 Drug: Ketorolac 15 mg Route: IVP; Site: left antecubital; ha1 01:00 Follow up: Response: No adverse reaction; Pain is decreased ha1 Medication: 02:10 VIS not applicable for this client. ha1 Outcome: 01:43 Discharge ordered by . cp 02:09 Discharged to home ambulatory. ha1 02:09 Condition: stable 02:09 Discharge instructions given to patient, Instructed on discharge instructions, follow up and referral plans. Demonstrated understanding of instructions, follow-up care. 02:11 Patient left the ED. ha1 Signatures: Dispatcher [employer] EDMS Romie Chavez PA PA cp Wood, Tiffany tw5 Magaly Kapoor jj6 Josie Vick, TSERING RN ha1
[2022-11-02 03:30] VITALS: TEMP 97.4
[2022-11-02 03:32] VITALS: O2SAT 98
[2022-11-02 03:33] VITALS: BP 138/65
--- NOTE | 2022-11-02 13:19 | EKG ---
Test Date: 2022-11-01 Test Time: 23:40:18 Criminology Teacher: TW MEASUREMENT RESULTS: Intervals: Rate: 100 NJ: 170 QRSD: 84 QT: 360 QTc: 464 [place]: P: 37 NJ: 170 QRS: -4 T: 29 INTERPRETIVE STATEMENTS: Normal sinus rhythm Low voltage QRS Cannot rule out Anterior infarct, age undetermined Abnormal ECG Compared to ECG 10/18/2022 11:23:34 Myocardial infarct finding now present Sinus arrhythmia no longer present Electronically Signed On 11-02-22 13:18:04 TIMBER INSPECTOR by Dave Aviles
--- NOTE | 2022-11-02 21:25 | RAD REPORT ---
EXAM DESCRIPTION: RAD - Chest Single View - 11/02/2022 12:26 am CLINICAL HISTORY: 2 years Female, SOB COMPARISON: Chest radiograph dated 07/11/2020 FINDINGS: No focal lung consolidation. No pleural effusion. No pneumothorax. Cardiomediastinal silhouette is within normal limits. No acute osseous abnormality. IMPRESSION: No acute cardiopulmonary disease. Electronically signed by: Joe Steele DO 11/02/2022 12:47 AM REGISTERED NURSE CARDIAC TELEMETRY Due to temporary technical issues with the PACS/Fluency reporting system, reports are being signed by the in house radiologists without review as a courtesy to insure prompt reporting. The interpreting radiologist is fully responsible for the content of the report.
--- NOTE | 2022-11-02 21:35 | RAD REPORT ---
EXAM DESCRIPTION: RAD - Shoulder Left 2 View - 11/02/2022 12:26 am CLINICAL HISTORY: 62 years Female, PAIN COMPARISON: None. FINDINGS: No fracture or dislocation. Joint spaces are preserved. Soft tissues are unremarkable. IMPRESSION: No acute osseous abnormality. Electronically signed by: Joe Steele DO 11/02/2022 12:46 AM RECONCILIATION MACHINE OPERATOR Due to temporary technical issues with the PACS/Fluency reporting system, reports are being signed by the in house radiologists without review as a courtesy to insure prompt reporting. The interpreting radiologist is fully responsible for the content of the report.
== END 2022-11-02 02:11 | disposition home or self-care (01) ==
LOC: ER 23:08
DX: M79.622 Pain in left upper arm (principal); R06.02 Shortness of breath; I10 Essential (primary) hypertension; Z88.0 Allergy status to penicillin; Z88.7 Allergy status to serum and vaccine
CPT/HCPCS: 36415; 71045; 80048; 80076; 83735; 83880; 84484; 85025; 85610; 93005; 96374; 99284

== ENCOUNTER 2023-12-19 16:15 | Emergency (ER) | payer OTHER ==
--- OUTSIDE RECORDS SUMMARY | 2023-12-19 16:18 | XMS REPORT | Continuity of Care Document ---
Author Name Unknown Address [address] [facility] [address] [place] [address] [facility] thconnect Address [address] [facility] [address] [place] [address] Care Team Providers Care Gusset Maker Name Role Phone ArminLexKaterin Riya Primary Care Physician [phone] GC_GCBZW_Ashleya_S Attending Clinician Unavaila Gino Jaime MD Attending Clinician [phone] Lashell ALAMO Attending Clinician Unavailable Lashell Francois Attending Clinician [phone] Michaelle Fletcher MD Attending Clinician [phone] MICHAELLE FLETCHER Attending Clinician Unavailable EARNEST_GCBZW_Ashleya_S Admitting Clinician Willi meza Payers Payer Name Policy Type Policy Number Effective Date Expirati on Date Source MEDICARE [place]: [id number] 2007 00:00:00 [facility] [id number] 2016 00:00:00 Problems Condition Name Condition Details Condition Category Status Onset Date Resolution Date Last Treatment Date Treating Clinician Comments Source Essential hypertensi on Essential Hypertensi on Problem Active - 00:00: 00 [facility] Diabetes mellitus Diabetes Mellitus Problem Active 04-25 00:00: 00 [facility] Hyperchole sterolemia Hyperchole sterolemia Problem Active 04-25 00:00: 00 [facility] Morbid obesity Morbid Obesity Problem Active 00:00: 00 [facility] Hypertensi ve disorder Hypertensi ve Disorder Problem Active 817 00:00: 00 [facility] Polyp of corpus uteri Polyp of Corpus Uteri Problem Active 817 00:00: 00 [facility] Postmenopa usal bleeding Postmenopa usal Bleeding Problem Active 8 00:00: 00 [facility] Arthritis Arthritis Problem Active 04-25 00:00: 00 [facility] Screening mammograph y Screening Mammograph y Problem Active 5-04 00:00: 00 [facility] Body mass index 40+ - severely obese Body Mass Index 40+ - Severely Obese Problem Active 1-06 00:00: 00 [facility] Encounter for screening mammogram for breast cancer Encounter for screening mammogram for breast cancer Disease Active 10-04 00:00: 00 [facility] Morbid obesity due to excess calories [E66.01] Morbid obesity due to excess calories [E66.01] Disease Active 10-04 00:00: 00 [facility] Essential hypertensi on Essential hypertensi on Disease Active 10-04 00:00: 00 [facility] Non-insuli n dependent type 2 diabetes mellitus Non-insuli n dependent type 2 diabetes mellitus Disease Active 10-04 00:00: 00 [facility] Generalize d anxiety disorder Generalize d anxiety disorder Disease Active 10-04 00:00: 00 [facility] Polyp at cervical os Polyp at cervical os Disease Active 10-04 00:00: 00 [facility] Post-menop ause bleeding Post-menop ause bleeding Disease Active 10-04 00:00: 00 [facility] Allergies, Adverse Reactions, Alerts Allergy Name Allergy Type Status Severity Reaction(s) Onset Date Inactive Date Treating Clinician Comments Source Vaccine Adjuvant Emulsion Combinat ion No. 1 Propensi ty to adverse reaction s Active Other - See comments 10-04 00:00: 00 Per pt has swelling to arm and was told by she had reaction and to no longer get a td vaccine d/t reaction [facility] VACCINE ADJUVANT EMULSION COMBINAT ION NO. 1 DRUG INGREDI Active Swelling 10-04 00:00: 00 [facility] Vaccine Adjuvant Emulsion As03 Propensi ty to adverse reaction s Active Other - See comments 10-04 00:00: 00 Per pt has swelling to arm and was told by md she had reaction and to no longer get a td vaccine d/t reaction [facility] Penicill ins Propensi ty to adverse reaction s to drug Active Unknown - See comments 05-13 00:00: 00 Pt states " I don't know what happens, all I know is that I am allergic since I was little." [facility] PENICILL INS Drug Class Active High Unknown-Cmnt 05-13 00:00: 00 [facility] Penicill ins Propensi ty to adverse reaction s to drug Active Unknown - See comments 05-13 00:00: 00 Pt states " I don't know what happens, all I know is that I am allergic since I was little." [facility] PENICILL IN Allergy to substanc e Active Hives [facility] PENICILL INS Allergy to substanc e Active [facility] Social History Social Habit Start Date Stop Date Quantity Comments Source Exposure to SARS-CoV-2 (event) Not sure [facility] Alcohol intake 2022-03-20 00:00:00 2022-03-20 00:00:00 0 /d [facility] Tobacco use and exposure 2016-10-04 00:00:00 2016-10-04 00:00:00 Smokeless tobacco non-user [facility] Sex Ass[birth year] At 1960 00:00:00 1960 00:00:00 [facility] Smoking Status Start Date Stop Date Source Never Smoker [facility] Medications Ordered Medication Name Filled Medication Name Start Date Stop Date Current Medication? Ordering Clinician Indication Dosage Frequency Signature (SIG) Comments Components Source diclofenac 75 mg EC tablet 2020-09 12:23: 25 08-13 00:00 :00 No 75mg Take 75 mg by mouth daily. [facility] ibuprofen 600 mg tablet 2020-09 00:00: 00 Yes [id number] 600mg Take 1 tablet by mouth every 6 (six) hours as needed for Pain (scale 4-6). [facility] methocarbam oL 500 mg tablet 2020-09 00:00: 00 Yes [id number] 500mg Take 1 tablet by mouth 4 (four) times daily. [facility] FENTanyl PF (SUBLIMAZE (PF)) injection 75 mcg 2020-09 06:00: 00 08-11 06:06 :00 No 75ug 75 mcg, Intramuscu lar, ONCE, 1 dose, On Sat08/11/21 at 0000, Routine [facility] diclofenac 75 mg EC tablet 10-04 09:11: 08 Yes 75mg Take 75 mg by mouth daily. [facility] albuterol sulfate 2.5 mg/3 mL (0.083 %) solution for nebulizatio n USE 1 VIAL IN NEBULIZER CADA CUATRO A SEIS HORAS CUANDO SEA NECESARIO PARA LA SIBILANCIA albuterol sulfate 2.5 mg/3 mL (0.083 %) solution for nebulizatio n USE 1 VIAL IN NEBULIZER CADA CUATRO A SEIS HORAS CUANDO SEA NECESARIO PARA LA SIBILANCIA No albuterol sulfate 2.5 mg/3 mL (0.083 %) solution for nebulizati on USE 1 VIAL IN NEBULIZER CADA CUATRO A SEIS HORAS CUANDO SEA NECESARIO PARA LA SIBILANCIA [facility] albuterol sulfate HFA 90 mcg/actuati on aerosol inhaler TOME IVAN INHALACI N POR V A ORAL CADA CUATRO A SEIS HORAS albuterol sulfate HFA 90 mcg/actuati on aerosol inhaler TOME IVAN INHALACI N POR V A ORAL CADA CUATRO A SEIS HORAS No albuterol sulfate HFA 90 mcg/actuat ion aerosol inhaler TOME IVAN INHALACI N POR V A ORAL CADA CUATRO A SEIS HORAS [facility] amitriptyli ne 25 mg tablet TOME IVAN TABLETA TODOS LOS D AL ACOSTARSE amitriptyli ne 25 mg tablet TOME IVAN TABLETA TODOS LOS D AL ACOSTARSE No amitriptyl ine 25 mg tablet TOME IVAN TABLETA TODOS LOS D AL ACOSTARSE [facility] BD Anita 2nd Gen Pen Needle 32 gauge x " USE SEG N LO INDICADO ONCE A WEEK BD Anita 2nd Gen Pen Needle 32 gauge x " USE SEG N LO INDICADO ONCE A WEEK No BD Anita 2nd Gen Pen Needle 32 gauge x " USE SEG N LO INDICADO ONCE A WEEK [facility] Breztri Aerosphere 160 mcg-9mcg-4. 8mcg/actuat ion HFA aerosol inhaler INHALE DANDO DOS SOPLIDOS POR V A ORAL DOS VECES AL D A (MORNINIG AND EVENING) Breztri Aerosphere 160 mcg-9mcg-4. 8mcg/actuat ion HFA aerosol inhaler INHALE DANDO DOS SOPLIDOS POR V A ORAL DOS VECES AL D A (MORNINIG AND EVENING) No Breztri Aerosphere 160 mcg-9mcg-4 .8mcg/actu ation HFA aerosol inhaler INHALE DANDO DOS SOPLIDOS POR V A ORAL DOS VECES AL D A (MORNINIG AND EVENING) [facility] carvedilol 6.25 mg tablet TOME IVAN TABLETA DOS VECES AL D A. ONLY TAKE IF BLOOD PRESSURE GREATER THAN 140/90 carvedilol 6.25 mg tablet TOME IVAN TABLETA DOS VECES AL D A. ONLY TAKE IF BLOOD PRESSURE GREATER THAN 140/90 No carvedilol 6.25 mg tablet TOME IVAN TABLETA DOS VECES AL D A. ONLY TAKE IF BLOOD PRESSURE GREATER THAN 140/90 [facility] cetirizine 10 mg tablet TAKE 1 TABLET POR V A ORAL CADA DOS D cetirizine 10 mg tablet TAKE 1 TABLET POR V A ORAL CADA DOS D No cetirizine 10 mg tablet TAKE 1 TABLET POR V A ORAL CADA DOS D [facility] clonidine HCl 0.1 mg tablet TOME IVAN TABLETA TODOS LOS D AL ACOSTARSE clonidine HCl 0.1 mg tablet TOME IVAN TABLETA TODOS LOS D AL ACOSTARSE No clonidine HCl 0.1 mg tablet TOME IVAN TABLETA TODOS LOS D AL ACOSTARSE [facility] diclofenac 1 % topical gel PLEASE SEE ATTACHED FOR DETAILED DIRECTIONS diclofenac 1 % topical gel PLEASE SEE ATTACHED FOR DETAILED DIRECTIONS No diclofenac 1 % topical gel PLEASE SEE ATTACHED FOR DETAILED DIRECTIONS [facility] famotidine 10 mg tablet TOME IVAN TABLETA DOS VECES AL D A CUANDO SEA NECESARIO famotidine 10 mg tablet TOME IVAN TABLETA DOS VECES AL D A CUANDO SEA NECESARIO No famotidine 10 mg tablet TOME IVAN TABLETA DOS VECES AL D A CUANDO SEA NECESARIO [facility] furosemide 20 mg tablet TOME IVAN TABLETA TODOS LOS D furosemide 20 mg tablet TOME IVAN TABLETA TODOS LOS D No furosemide 20 mg tablet TOME IVAN TABLETA TODOS LOS D [facility] gabapentin 100 mg capsule gabapentin 100 mg capsule No gabapentin 100 mg capsule [facility] ibuprofen 800 mg tablet TOME IVAN TABLETA POR V A ORAL 3 TIMES A DAY NEEDED FOR PAIN ibuprofen 800 mg tablet TOME IVAN TABLETA POR V A ORAL 3 TIMES A DAY NEEDED FOR PAIN No ibuprofen 800 mg tablet TOME IVAN TABLETA POR V A ORAL 3 TIMES A DAY NEEDED FOR PAIN [facility] Levoxyl 125 mcg tablet TOME IVAN TABLETA POR V A ORAL CADA MA ANTHONY EN EST GUDELIA VAC O W/WATER 30 MINS TO 1 HOUR BEFORE EATING Levoxyl 125 mcg tablet TOME IVAN TABLETA POR V A ORAL CADA MA ANTHONY EN EST GUDELIA VAC O W/WATER 30 MINS TO 1 HOUR BEFORE EATING No Levoxyl 125 mcg tablet TOME IVAN TABLETA POR V A ORAL CADA MA ANTHONY EN EST GUDELIA VAC O W/WATER 30 MINS TO 1 HOUR BEFORE EATING [facility] lisinopril 20 mg tablet TOME IVAN TABLETA TODOS LOS D lisinopril 20 mg tablet TOME IVAN TABLETA TODOS LOS D No lisinopril 20 mg tablet TOME IVAN TABLETA TODOS LOS D [facility] meclizine 25 mg tablet as needed meclizine 25 mg tablet as needed No meclizine 25 mg tablet as needed [facility] metformin 500 mg tablet TAKE 1 TABLET(S) BY MOUTH DOS VECES AL D A BEFORE BREAKFAST AND BEFORE SUPPER. metformin 500 mg tablet TAKE 1 TABLET(S) BY MOUTH DOS VECES AL D A BEFORE BREAKFAST AND BEFORE SUPPER. No metformin 500 mg tablet TAKE 1 TABLET(S) BY MOUTH DOS VECES AL D A BEFORE BREAKFAST AND BEFORE SUPPER. [facility] Mounjaro 5 mg/0.5 mL subcutaneou s pen injector INJECT 5 MG POR V A SUBCUT PARUL ONCE A WEEK Mounjaro 5 mg/0.5 mL subcutaneou s pen injector INJECT 5 MG POR V A SUBCUT PARUL ONCE A WEEK No Mounjaro 5 mg/0.5 mL subcutaneo us pen injector INJECT 5 MG POR V A SUBCUT PARUL ONCE A WEEK [facility] ofloxacin 0.3 % ear drops INSTILL 4 DROPS INTO LEFT EAR DOS VECES AL D A POR 7 D ofloxacin 0.3 % ear drops INSTILL 4 DROPS INTO LEFT EAR DOS VECES AL D A POR 7 D No ofloxacin 0.3 % ear drops INSTILL 4 DROPS INTO LEFT EAR DOS VECES AL D A POR 7 D [facility] oxybutynin chloride ER 10 mg tablet,exte nded release 24 hr TOME IVAN TABLETA TODOS LOS D oxybutynin chloride ER 10 mg tablet,exte nded release 24 hr TOME IVAN TABLETA TODOS LOS D No oxybutynin chloride ER 10 mg tablet,ext ended release 24 hr TOME IVAN TABLETA TODOS LOS D [facility] pantoprazol e 40 mg tablet,adrianne yed release TOME IVAN TABLETA TODOS LOS D pantoprazol e 40 mg tablet,adrianne yed release TOME IVAN TABLETA TODOS LOS D No pantoprazo le 40 mg tablet,del ayed release TOME IVAN TABLETA TODOS LOS D [facility] rosuvastati n 10 mg tablet TOME IVAN TABLETA DIARIAMENTE rosuvastati n 10 mg tablet TOME IVAN TABLETA DIARIAMENTE No rosuvastat in 10 mg tablet TOME IVAN TABLETA DIARIAMENT E [facility] Vital Signs Vital Name Observation Time Observation Value Comments S ource BP Systolic 2023-12-11 00:00:00 188 mm[Hg] [facility] Height 2023-12-11 00:00:00 60 [in_i] [facility] BP Diastolic 2023-12-11 00:00:00 80 mm[Hg] [facility] BMI (Body Mass Index) 2023-12-11 00:00:00 49.3 kg/m2 [facility] Body Weight 2023-12-11 00:00:00 252.4 [lb_av] [facility] Systolic blood pressure 2021-08-13 17:30:00 151 mm[Hg] [facility] Diastolic blood pressure 2021-08-13 17:30:00 58 mm[Hg] [facility] Heart rate 2021-08-13 17:30:00 71 /min [facility] Body temperature 2021-08-13 17:30:00 36.56 [place] [facility] Respiratory rate 2021-08-13 17:30:00 18 /min [facility] Body weight 2021-08-13 17:30:00 122.471 [facility] BMI 2021-08-13 17:30:00 52.73 kg/m2 [facility] Oxygen saturation in Arterial blood by Pulse oximetry 2021-08-13 17:30:00 99 /min [facility] Systolic blood pressure 2021-08-11 06:00:00 152 mm[Hg] [facility] Diastolic blood pressure 2021-08-11 06:00:00 78 mm[Hg] [facility] Heart rate 2021-08-11 06:00:00 85 /min [facility] Respiratory rate 2021-08-11 06:00:00 21 /min [facility] Oxygen saturation in Arterial blood by Pulse oximetry 2021-08-11 06:00:00 100 /min [facility] Body temperature 2021-08-11 04:14:00 37.17 [place] [facility] Body weight 2021-08-11 04:14:00 122.471 kg [facility] BMI 2021-08-11 04:14:00 52.73 kg/m2 [facility] Procedures Procedure Date / Time Performed Performing Clinician Source NOTICE OF PRIVACY PRACTICES 2021-08-11 04:02:07 Doctor Unassigned, [place] [facility] CONSENT/REFUSAL FOR DIAGNOSIS AND TREATMENT 2021-08-11 04:00:02 Doctor Unassigned, [place] [facility] Plan of Care Planned Activity Planned Date Details Comments Source Future Appointment 2023-12-26 11:30:00 Margaux henley, [address], [place] [address] [facility] Medical Encounters Start Date/Time End Date/Time Encounter Type Admission Type Attending [facility] Facility Care Department Encounter ID Source 2023-12-17 08:32:34 2023-12-17 08:32:34 Outpatient SFA SFA [id number] Sarabjit Metcalf 2023-12-11 00:00:00 2023-12-11 00:00:00 Margaux Clark, CREDIT RESOLUTION REPRESENTATIVE: [address], [place] [id number] , Ph. [facility] - GC_GCBZW_La [facility]* [id number] [facility] 2023-10-03 00:00:00 2023-10-03 00:00:00 Outpatient GC_GCBZW_Ka diyala_S [facility] [id number] [facility] 2023-09-18 08:18:08 2023-09-18 08:18:08 Outpatient SFA SFA [id number] Sarabjit Metcalf 2023-08-21 09:36:09 2023-08-21 09:36:09 Outpatient SFA [id number] [id number] Sarabjit Metcalf 2023-07-24 14:40:54 2023-07-24 14:40:54 Outpatient SFA SFA [id number] Sarabjit Metcalf 2023-07-17 09:05:28 2023-07-17 09:05:28 Outpatient SFA SFA [id number] Sarabjit Metcalf 2023-06-12 00:00:00 2023-06-12 00:00:00 Outpatient GC_GCBZW_Ka diyala_S [facility] [id number] [facility] 2023-06-11 11:00:14 2023-06-11 11:00:14 Outpatient SFA SFA [id number] Sarabjit Metcalf 2023-05-28 00:00:00 2023-05-28 00:00:00 Outpatient GC_GCBZW_Ka diyala_S PRIV PRIV [id number] [facility] 2023-05-27 13:19:57 2023-05-27 13:19:57 Outpatient SFA SFA [id number] Sarabjit Metcalf 2023-05-13 07:41:03 2023-05-13 07:41:03 Outpatient SFA SFA [id number] Sarabjit Metcalf 2023-05-10 09:20:34 2023-05-10 09:20:34 Outpatient SFA SFA [id number] Sarabjit Metcalf 2023-04-30 00:00:00 2023-04-30 00:00:00 Outpatient GC_GCBZW_Ka diyala_S PRIV PRIV [id number] [facility] 2023-04-25 00:00:00 2023-04-25 00:00:00 Outpatient GC_GCBZW_Ka diyala_S PRIV PRIV [id number] [facility] 2023-02-01 07:10:58 2023-02-01 07:10:58 Outpatient SFA SFA [id number] Sarabjit Metcalf 2022-09-14 00:00:00 2022-09-14 00:00:00 Telephone Gino Espinal [facility] [id number] [facility] 2021-08-13 11:30:00 2021-08-13 12:28:00 Emergency X CALLY, K [facility] ERT [id number] [facility] 2021-08-13 11:30:00 2021-08-13 12:28:00 Emergency Lashell Alamo [facility] [id number] [facility] 2021-08-10 22:16:00 2021-08-11 00:16:00 Emergency Michaelle Fletcher [facility] [id number] [facility] 2021-08-10 22:16:00 2021-08-11 00:16:00 Emergency X MICHAELLE FLETCHER [facility] ERT [id number] [facility]
[2023-12-19] MEDS ORDERED: ONDANSETRON 4 MG/2 ML VIAL ONE (16:55)
[2023-12-19] MEDS ORDERED: MORPHINE 4 MG/ML SYR ONE (16:56)
[2023-12-19 17:15] LABS: Absolute Eosinophils 0.1 K/uL (0-0.5); Absolute Lymphocytes (CBC) 1.3 K/uL (0.7-4.9); Absolute Monocytes 0.4 K/uL (0.1-1.3); Absolute Neutrophil 6.4 K/uL (1.8-8.0); Basophils % 0.5 % (0-1.3); Eosinophils % 0.8 % (0-4.4); Hematocrit 40.1 % (36.0-45.0); Hemoglobin 13.5 g/dL (12.0-15.0); Lymphocytes % 15.4 % (15.3-44.8); MCH 28.8 pg (27.0-35.0); MCHC 33.7 g/dL (32.0-36.0); MCV 85.4 fL (80-100); MPV 9.2 fL (7.6-11.3); Monocytes % 5.2 % (3.3-12.3); Neutrophils % 78.1 % (41.7-73.7); Platelets 255 thou/uL (152-406); RBC Red Blood Cell Count 4.69 M/uL (3.86-4.86); Red Cell Distribution Width 13.5 % (12.1-15.2)
--- NOTE | 2023-12-19 17:23 | RAD REPORT ---
EXAM DESCRIPTION: RAD - Chest Single View - 12/19/2023 5:12 pm CLINICAL HISTORY: CHEST PAIN COMPARISON: Chest Single View dated 11/01/2022; Chest Single View dated 10/18/2022; Chest Single View d ated 08/10/2022; Chest Single View dated 03/15/2021; Chest Single View dated 02/01/2020 FINDINGS: Lines: None. Lungs: No evidence of edema or pneumonia. Pleural: No significant pleural effusions or pneumothorax. Cardiac: Similar size and configuration Mediastinum: Within normal limits. Bones: No acute fractures. Other: None IMPRESSION: No acute cardiopulmonary disease.
[2023-12-19 17:27] LABS: Albumin 3.8 g/dL (3.4-5.0); Albumin/Globulin Ratio 1.4 (1.1-1.8); Anion Gap 8.5 mEq/L (5.0-15.0); Bilirubin Total 1.5 mg/dL (0.2-1.0); Globulin 2.8 g/dL (2.3-3.5); Potassium 3.5 mEq/L (3.5-5.1); Protein, Total 6.6 g/dL (6.4-8.2); Troponin High Sensitivity 9.8 pg/mL (<58.9)
--- NOTE | 2023-12-19 17:38 | RAD REPORT ---
EXAM DESCRIPTION: US - Abdomen Exam Limited - 12/19/2023 5:21 pm CLINICAL HISTORY: ABD PAIN COMPARISON: Stone Protocol dated 08/10/2021 FINDINGS: The gallbladder demonstrates sludge and small gallstone No pericholecystic fluid or gallbl adder wall thickening. The common bile duct is dilated measuring 8 mm. The gallbladder is distended. The liver demonstrates no findings of intrahepatic biliary dilatation. IMPRESSION: Distended gallbladder with cholelithiasis but no sonographic evidence of acute cholecyst itis. The common bile duct is dilated as well. A CT is pending. The common bile duct dilatation is ne w since 08/10/2021 and could reflect choledocholithiasis or other source of obstruction.
--- NOTE | 2023-12-19 18:11 | RAD REPORT ---
EXAM DESCRIPTION: CTAbdomen Pelvis W Contrast - 12/19/2023 5:59 pm CLINICAL HISTORY: ABD PAIN COMPARISON: No comparisonsAbdomen Pelvis W Contrast dated 08/08/2018 TECHNIQUE: CT of the abdomen and pelvis was performed. All CT scans are performed using dose optimization technique as appropriate and may include automated exposure control or mA/KV adjustment according to patient size. FINDINGS: Lower chest: No acute abnormality. Liver: No focal liver mass. Mild intrahepatic biliary duct dilatation. Biliary: Distended gallbladder. The common bile duct measures 9 millimeters. The dilatation extends d own to the region of the ampulla. A small periampullary diverticulum is present. Stomach: No significant focal abnormality. Duodenum: No significant focal abnormality. Pancreas: No significant abnormality. Spleen: No significant abnormality. Adrenal: No suspicious lesions. Kidney/ureter: No hydronephrosis. No renal calculi. Retroperitoneum: No retroperitoneal adenopathy. Vascular: No aneurysm. Atherosclerosis . Bowel: Diverticulosis. No evidence of acute diverticulitis. Normal appendix. . Peritoneum: No ascites or free air. Small fat containing periumbilical hernia. Bladder: Grossly unremarkable. Reproductive: No adnexal masses. Bones: No acute fracture. Multilevel degenerative changes are present in the spine. Other: n/a IMPRESSION: Increased intra- and extrahepatic biliary duct dilatation and distended gallbladder . Th e common bile duct is dilated down to the level of the ampulla. A small periampullary diverticulum is present. This could be the source of the dilatation. No radiopaque stone or mass identified. Suggest correlating with LFTs. If abnormal, could consider either MRCP or ERCP for further evaluation
--- NOTE | 2023-12-19 18:38 | EDPHYS ---
Physician Documentation [facility] Name: Justina Yoo Age: 63 yrs Sex: Female : 1960 Arrival Date: 12/19/2023 Time: 16:15 Bed 15 Private MD: ED Physician Omero Clark HPI: 12/18 17:11 This 63 yrs old Female presents to ER via Ambulatory with complaints of Chest rn Pain/abd pain. 17:11 The patient or guardian reports chest pain that is located primarily in the substernal rn area. 17:11 The patient presents with abdominal pain in the epigastric area. Onset: The rn symptoms/episode began/occurred today. The symptoms do not radiate. Associated signs and symptoms: Pertinent negatives: fever, shortness of breath. Modifying factors: The symptoms are alleviated by nothing, the symptoms are aggravated by food. Severity of pain: At its worst the pain was moderate in the emergency department the pain is unchanged. The patient has not experienced similar symptoms in the past. Patient reports recent of son. Has been having intermittent chest pain and now upper abdominal pain since then. Seen here or other ER for this a few days ago and told was anxiety. Now having upper abdominal pain with nausea and decreased appetite. No history of gallbladder problems. Patient reports having chest pain but points to epigastric region and tender in epigastric region.. 17:12 Onset: today. The pain does not radiate. Associated signs and symptoms: Pertinent rn positives: shortness of breath, Pertinent negatives: abdominal pain, cough, lower extremity swelling, palpitations, syncope. The chest pain is described as aching. Historical: - Allergies: 16:27 PENICILLINS; ll1 16:27 Tetanus Vaccines \T\ Toxoid; ll1 - PMHx: 16:27 Anxiety; Arthritis; Asthma; Depression; Diabetes - NIDDM; Hypertension; Thyroid problem;ll1 - PSHx: 16:27 section; ll1 - Immunization history:: Adult Immunizations up to date. - Infectious Disease History:: Denies. - Social history:: Smoking status: Patient denies any tobacco usage or history of. - Family history:: not pertinent. - Hospitalizations: : No recent hospitalization is reported. ROS: 17:11 Constitutional: Negative for fever, chills, and weight loss, Neck: Negative for injury, rn pain, and swelling, Cardiovascular: Negative for palpitations, and edema Respiratory: Negative for shortness of breath, cough, wheezing, and pleuritic chest pain, Abdomen/GI: Positive for abdominal pain and nausea MS/Extremity: Negative for injury and deformity, Skin: Negative for injury, rash, and discoloration, Neuro: Negative for headache, weakness, numbness, tingling, and seizure, Exam: 16:51 ECG was reviewed by the Attending Physician. rn 17:16 Constitutional: This is a well developed, well nourished patient who is awake, alert, rn rubbing chest, tearful and emotional Cardiovascular: Regular rate and rhythm. No pulse deficits. Respiratory: No increased work of breathing, no retractions or nasal flaring. Abdomen/GI: Soft, mild epigastric and right upper quadrant tenderness. MS/ Extremity: Pulses equal, no cyanosis. Neuro: Awake and alert, GCS 15 Vital Signs: 16:25 BP 157 / 75; Pulse 66; Resp 20; Temp 97.3; Pulse Ox 100% ; Weight 113.4 kg; Height 4 ll1 ft. 9 in. ; Pain 10/10; 18:09 BP 168 / 75; Pulse 71; Resp 18; Pulse Ox 100% on R/A; db 19:00 BP 156 / 69; Pulse 80; Resp 17; Pulse Ox 100% ; jj7 20:00 BP 151 / 88; Pulse 92; Resp 16; Pulse Ox 100% ; jj7 21:00 BP 121 / 62; Pulse 93; Resp 19; Pulse Ox 100% ; jj7 22:00 BP 151 / 91; Pulse 116; Resp 18; Pulse Ox 100% ; j7 12/19 00:10 BP 135 / 89; Pulse 112; Resp 16; Pulse Ox 97% ; Pain 0/10; jj7 12/18 16:25 Body Mass Index 54.10 (113.40 kg, 144.78 cm) ll1 12/18 16:25 Pain Scale: Adult ll1 12/19 00:10 Pain Scale: Adult jj7 MDM: 12/18 16:27 Patient medically screened. rn 18:35 Differential diagnosis: cholecystitis, Cholelithiasis, gastritis, non-specific abd rn pain, pancreatitis. Data reviewed: vital signs, nurses notes, lab test result(s), radiologic studies, CT scan, ultrasound, and as a result, I will admit patient. Consideration of Admission/Observation Patient was admitted/placed on observation. Escalation of care including admission/observation considered. Counseling: I had a detailed discussion with the patient and/or guardian regarding the historical points, exam findings, and any diagnostic results supporting the discharge/admit diagnosis, lab results, radiology results, the need to transfer to another facility, for higher level of care, [facility] does not immediately have the required specialist. ED course: Pt with dilated CBD, no GI here, abnormal LFTs, will initiate transfer to [facility]. . 18:38 ED course: [facility] did not answer x 2, transfer initiated to [facility] now. . rn 19:30 ED course: [facility] declines due to capacity. . rn 20:26 ED course: GI at [facility] [place] declined transfer, requests MRCP. Told him MRCP rn is not available until tomorrow at some time and we do not have nuclear medicine to do HIDA scan. He was persistent and states patient might of passed a stone so he prefers MRCP even if it is tomorrow and then a call back instead of transfer at this time. I asked [facility] transfer center to try a different location as our hospitalist and surgeons will not keep this here with common bile duct dilatation and possible obstruction.. 22:50 ED course: Patient was discussed with attending MD [facility] and was sp4 accepted for regular floor bed with EMS transport. Condition is stable . 12/18 16:33 Order name: CBC with Diff; Complete Time: 17:49 rn 12/18 16:33 Order name: CMP; Complete Time: 17:49 rn 12/18 16:33 Order name: Lipase; Complete Time: 17:49 rn 12/18 16:33 Order name: NT PRO-BNP; Complete Time: 17:49 rn 12/18 16:33 Order name: Troponin HS; Complete Time: 17:49 rn 12/18 16:33 Order name: Abdomen Limited US; Complete Time: 17:49 12/18 16:33 Order name: CT Abd/Pelvis - IV Contrast Only; Complete Time: 18:18 rn 12/18 16:33 Order name: XRAY Chest (1 view); Complete Time: 17:49 rn 12/18 16:33 Order name: IV Saline Lock; Complete Time: 18:21 rn 12/18 16:33 Order name: Labs collected and sent; Complete Time: 18:21 rn 12/18 16:33 Order name: Cardiac monitoring; Complete Time: 16:54 rn 12/18 16:33 Order name: EKG - Nurse/Tech; Complete Time: 16:54 rn 12/18 16:33 Order name: O2 Per Protocol; Complete Time: 18:18 rn 12/18 16:33 Order name: O2 Sat Monitoring; Complete Time: 18:18 rn 12/18 21:10 Order name: NPO; Complete Time: 21:42 sp4 EC:51 Rate is 66 beats/min. Rhythm is regular. QRS [place] is Normal. [place] interval is normal. QRS rn interval is normal. QT interval is normal. No Q waves. T waves are Normal. No ST changes noted. Clinical impression: Normal ECG. Interpreted by me. Reviewed by me. Administered Medications: 17:00 Drug: Ondansetron IVP 4 mg IVP once; over 2 minutes {Note: pain 10/10, RASS 0.} Route: iw IVP; Site: right antecubital; 18:21 Follow up: Response: No adverse reaction db 17:00 Drug: morphine IVP or IV 4 mg IVP once over 4 mins {Note: pain 10/10 RASS 0.} Route: iw IVP; Infused Over: 4 mins; Site: right antecubital; 18:21 Follow up: Response: No adverse reaction; Pain is decreased db 21:41 Drug: NS 0.9% IV 1000 ml IV at 1 bolus Per protocol; 1000 mL bolus Route: IV; Rate: 1 jj7 bolus; Site: right antecubital; 22:39 Follow up: IV Status: Completed infusion jj7 22:39 Drug: NS 0.9% IV 1000 ml IV at 125 ml/hr continuous Route: IV; Rate: 125 ml/hr; Site: jj7 right antecubital; 12/19 00:12 Follow up: IV Status: IV converted to saline lock jj7 Disposition Summary: 12/19/23 18:37 Transfer Ordered Notes: Transfer Location: [facility] rn Reason: Higher level of care rn Condition: Stable rn Problem: new rn Symptoms: are unchanged rn Accepting Physician: Dr. Neel chávezist (12/20/23 00:13) jj7 Diagnosis - Dilated common bile duct rn - Abnormal results of liver function studies rn - Abdominal pain, unspecified rn Forms: - Medication Reconciliation Form rn - SBAR form rn Signatures: Dispatcher [employer] EDMS Vita Gutierrez RN RN iw Nieto, Roman, MD MD rn Lewis, Lynsay, RN RN ll1 Mauro Munson RN RN jj7 Omero Clark MD MD sp4 Viktoria Simon RN db Corrections: (The following items were deleted from the chart) 12/18 16:33 16:33 BASIC METABOLIC PANEL+C.LAB.BRZ ordered. EDMS EDMS 16:33 16:33 PROBNP+C.LAB.BRZ ordered. EDIL EDMS 16:33 16:33 Troponin High Sensitivity+C.LAB.BRZ ordered. EDMS EDMS 16:34 16:34 Chest Single View+RAD.RAD.BRZ ordered. EDIL EDMS 17:14 17:11 This 63 yrs old Female presents to ER via Ambulatory with complaints of rn Chest Pain. rn 17:21 17:16 Constitutional: This is a well developed, well nourished patient who is awake, rn alert, rubbing chest rn 22:15 18:37 Dr. bird sp4 12/19 00:13 12/18 22:15 Dr. Shaikh hospitalist sp4 jj7
--- NOTE | 2023-12-19 18:38 | ER ---
Nurse's Notes [facility] Name: Justina Yoo Age: 63 yrs Sex: Female : 1960 Arrival Date: 12/19/2023 Time: 16:15 Bed 15 Private MD: Diagnosis: Dilated common bile duct;Abnormal results of liver function studies;Abdominal pain, unspecified Presentation: 12/18 16:25 Chief complaint: Patient states: CP since 11 AM today. Pain to abdomen RUQ, tender with ll1 palpation. Seen a few days ago with the same. Coronavirus screen: Client denies travel out of the [place] in the last 14 days. At this time, the client does not indicate any symptoms associated with coronavirus-19. Ebola Screen: Patient denies travel to an Ebola-affected area in the 21 days before illness onset. Initial Sepsis Screen: Does the patient meet any 2 criteria? No. Patient's initial sepsis screen is negative. Does the patient have a suspected source of infection? No. Patient's initial sepsis screen is negative. Risk Assessment: Do you want to hurt yourself or someone else? Patient reports no desire to harm self or others. Onset of symptoms was December 19, 2023. 16:25 Method Of Arrival: Ambulatory ll1 16:25 Acuity: SARIKA 3 ll1 Triage Assessment: 16:27 General: Appears uncomfortable, Behavior is calm, cooperative, appropriate for age. ll1 Pain: Complains of pain in abdomen Pain radiates to chest. Cardiovascular: Reports chest pain. GI: Reports upper abdominal pain. Historical: - Allergies: 16:27 PENICILLINS; ll1 16:27 Tetanus Vaccines \T\ Toxoid; ll1 - PMHx: 16:27 Anxiety; Arthritis; Asthma; Depression; Diabetes - NIDDM; Hypertension; Thyroid problem;ll1 - PSHx: 16:27 section; ll1 - Immunization history:: Adult Immunizations up to date. - Infectious Disease History:: Denies. - Social history:: Smoking status: Patient denies any tobacco usage or history of. - Family history:: not pertinent. - Hospitalizations: : No recent hospitalization is reported. Screenin:00 [facility] ED Fall Risk Assessment (Adult) History of falling in the last 3 months, db including since admission No falls in past 3 months (0 pts) Confusion or Disorientation No (0 pts) Intoxicated or Sedated No (0 pts) Impaired Gait No (0 pts) Mobility Assist Device Used No (0 pt) Altered Elimination No (0 pt) Score/Fall Risk Level 0 - 2 = Low Risk Oriented to surroundings, Maintained a safe environment. Abuse screen: Denies threats or abuse. Denies injuries from another. Nutritional screening: No deficits noted. Tuberculosis screening: No symptoms or risk factors identified. Assessment: 17:00 Reassessment: No changes from previously documented assessment. Patient and/or family iw updated on plan of care and expected duration. Pain level reassessed. Patient is alert, oriented x 3, equal unlabored respirations, skin warm/dry/pink. 18:19 Reassessment: Patient appears in no apparent distress at this time. Patient and/or db family updated on plan of care and expected duration. Pain level reassessed. Patient is alert, oriented x 3, equal unlabored respirations, skin warm/dry/pink. General: Appears in no apparent distress. comfortable, Behavior is calm, cooperative. Pain: Complains of pain in abdomen Pain currently is 0 out of 10 on a pain scale. Pain: Denies pain. Pain began gradually. Pain: Pain does not radiate. Neuro: Level of Consciousness is awake, alert, obeys commands, Oriented to person, place, time, situation, Speech is normal. Cardiovascular: Reports None. Respiratory: Airway is patent Respiratory effort is even, unlabored, Respiratory pattern is regular, symmetrical. 19:00 Reassessment: ASSUMED CARE OF PT. PT LYING IN BED. NO PAIN OR DISTRESS NOTED. PT jj7 INFORMED OF PLAN OF CARE FOR TRANSFER. PT REQUEST FOR TRANSFER TO [facility] IF POSSIBLE. DESK TECH INFORMED. VS STABLE. AT BEDSIDE. CALL MARTINEZ IN REACH. 23:10 Reassessment: REPORT GIVEN TO DYAN CAGLE AT [facility]. jj7 Vital Signs: 16:25 BP 157 / 75; Pulse 66; Resp 20; Temp 97.3; Pulse Ox 100% ; Weight 113.4 kg; Height 4 ll1 ft. 9 in. ; Pain 10/10; 18:09 BP 168 / 75; Pulse 71; Resp 18; Pulse Ox 100% on R/A; db 19:00 BP 156 / 69; Pulse 80; Resp 17; Pulse Ox 100% ; jj7 20:00 BP 151 / 88; Pulse 92; Resp 16; Pulse Ox 100% ; jj7 21:00 BP 121 / 62; Pulse 93; Resp 19; Pulse Ox 100% ; jj7 22:00 BP 151 / 91; Pulse 116; Resp 18; Pulse Ox 100% ; jj7 12/19 00:10 BP 135 / 89; Pulse 112; Resp 16; Pulse Ox 97% ; Pain 0/10; jj7 12/18 16:25 Body Mass Index 54.10 (113.40 kg, 144.78 cm) 1 12/18 16:25 Pain Scale: Adult 1 12/19 00:10 Pain Scale: Adult [facility] ED Course: 12/18 16:15 Patient arrived in ED. mr 16:27 Triage completed. ll1 16:27 Jeff Suarez MD is Attending Physician. rn 16:27 Arm band placed on. ll1 16:29 EKG done, by ED staff, reviewed by Jeff Suarez MD. ll1 16:40 Initial lab(s) drawn, by ca, sent to lab. Inserted saline lock: 22 gauge in right iw antecubital area, using aseptic technique. Blood collected. 17:13 XRAY Chest (1 view) In Process Unspecified. EDMS 17:23 Abdomen Limited US In Process Unspecified. EDMS 18:00 Patient has correct armband on for positive identification. Bed in low position. Call db light in reach. Side rails up X 1. Pulse ox on. NIBP on. Warm blanket given. 18:01 CT Abd/Pelvis - IV Contrast Only In Process Unspecified. EDMS 18:10 Viktoria Simon, RN is Primary Nurse. db 18:40 Dr. Suarez initiated transfer to [facility]. 19:00 Provided Education on: TRANSFER PROCESS. j7 19:00 No provider procedures requiring assistance completed. jj7 19:03 Report given to . db 19:26 [facility] denied due to capacity. 19:26 This is the 4th time of calling [facility] to initiate transfer. 19:26 5th time calling [facility] and got thru, initiating transfer to [facility], spoke with Germán Zhang. 20:16 Mauro Munson, RN is Primary Nurse. j7 20:32 Attending Physician role handed off by Jeff Suarez MD sp4 20:32 Omero Clark MD is Attending Physician. sp4 21:14 Warm blanket given. Pillow given. jj7 21:55 Pt accepted for transfer to [facility] Rm:[address] Jaramillo \T\ 2114 per Germán Zhang. 22:00 EMS unable to transport, no trucks available. 22:00 [place] will transport with an ETA \T\ 2330. 12/19 00:11 Patient transferred, IV remains in place. jj7 00:11 O2 via RA. jj7 Administered Medications: 12/18 17:00 Drug: Ondansetron IVP 4 mg IVP once; over 2 minutes {Note: pain 10/10, RASS 0.} Route: iw IVP; Site: right antecubital; 18:21 Follow up: Response: No adverse reaction db 17:00 Drug: morphine IVP or IV 4 mg IVP once over 4 mins {Note: pain 10/10 RASS 0.} Route: iw IVP; Infused Over: 4 mins; Site: right antecubital; 18:21 Follow up: Response: No adverse reaction; Pain is decreased db 21:41 Drug: NS 0.9% IV 1000 ml IV at 1 bolus Per protocol; 1000 mL bolus Route: IV; Rate: 1 jj7 bolus; Site: right antecubital; 22:39 Follow up: IV Status: Completed infusion jj7 22:39 Drug: NS 0.9% IV 1000 ml IV at 125 ml/hr continuous Route: IV; Rate: 125 ml/hr; Site: j right antecubital; 12/19 00:12 Follow up: IV Status: IV converted to saline lock jj7 Medication: 12/18 19:00 VIS not applicable for this client. jj7 Outcome: 18:37 ER care complete, transfer ordered by . marge 12/19 00:11 Transferred by [facility]. to [facility], [facility] [place], jj7 Condition: improved 00:13 Patient left the ED. jj7 Signatures: Dispatcher [employer] EDMS Samra Fishre, Reg Reg mr Vita Gutierrez, RN RN Jeff Suarez MD MD rn Lewis, Lynsay, RN RN ll1 Stephanie Mccoy Mauro Munson RN RN jj7 Viktoria Simon, RN RN db Omero Clark MD MD sp4 Corrections: (The following items were deleted from the chart) 12/18 16:28 16:25 113.4 kg; Height 4 ft. 9 in.; BMI: 54.1; Pain 06/18, Adult; ll1 ll1 16:29 16:25 Chief complaint: Patient states: CP since 11 AM today. Pain to abdomen into ll1 chest. Seen a few days ago with the same. 1 19:52 19:26 5th time calling [facility] and got thru [facility]
[2023-12-19] MEDS ORDERED: NA CHLORIDE 0.9% 1,000 ML ONE (21:38)
[2023-12-20 06:19] VITALS: BP 135/89; TEMP 97.3; O2SAT 97
--- NOTE | 2023-12-20 13:37 | EKG ---
Test Date: 2023-12-19 Test Time: 16:25:19 [employer] Apprentice: JESUS ALBERTO MEASUREMENT RESULTS: Intervals: Rate: 66 WV: 158 QRSD: 68 QT: 436 QTc: 457 [place]: P: 59 WV: 158 QRS: 79 T: 75 INTERPRETIVE STATEMENTS: Normal sinus rhythm Normal ECG Compared to ECG 11/01/2022 23:40:18 Myocardial infarct finding no longer present Electronically Signed On 12-20-23 13:36:21 CDT by Dave Aviles
== END 2023-12-20 00:13 | disposition short-term general hospital (02) ==
LOC: ER 16:15
DX: K83.8 Other specified diseases of biliary tract (principal); R94.5 Abnormal results of liver function studies; I10 Essential (primary) hypertension; Z88.0 Allergy status to penicillin; Z88.7 Allergy status to serum and vaccine
CPT/HCPCS: 96361; 93005; 85025; 36415; 84484; 83690; 80053; 83880; 74177; 71045; 76705; 96375; 96374; 99285; Q9967; J2405; J7030

== ENCOUNTER 2024-03-05 10:44 | Emergency (ER) | payer OTHER ==
[2024-03-05] MEDS ORDERED: HYDROCODONE/APAP 5/325 MG TAB ONE (11:09)
[2024-03-05 12:14] LABS: Absolute Basophils 0.1 K/uL (0-0.5); Absolute Eosinophils 0.1 K/uL (0-0.5); Absolute Lymphocytes (CBC) 1.8 K/uL (0.7-4.9); Absolute Monocytes 0.4 K/uL (0.1-1.3); Basophils % 1.1 % (0-1.3); Eosinophils % 1.1 % (0-4.4); Hematocrit 45.3 % (36.0-45.0); Hemoglobin 15.4 g/dL (12.0-15.0); Lymphocytes % 24.7 % (15.3-44.8); MCH 29.1 pg (27.0-35.0); MCHC 33.9 g/dL (32.0-36.0); MCV 85.7 fL (80-100); MPV 8.4 fL (7.6-11.3); Neutrophils % 67.1 % (41.7-73.7); Nucleated Red Blood Cells % 0.2 % (0-0); Platelets 306 thou/uL (152-406); RBC Red Blood Cell Count 5.29 M/uL (3.86-4.86); Red Cell Distribution Width 13.9 % (12.1-15.2)
--- NOTE | 2024-03-05 12:28 | RAD REPORT ---
EXAM DESCRIPTION: RAD - Tib Fib Right - 03/05/2024 12:14 pm CLINICAL HISTORY: PAIN COMPARISON: No comparisons FINDINGS: No acute fracture or dislocation is seen. Mild tricompartmental osteoarthritis. Very large calcaneal spurs, greater posteriorly.
[2024-03-05 12:29] LABS: Anion Gap 6.2 mEq/L (5.0-15.0); Potassium 4.2 mEq/L (3.5-5.1); Troponin High Sensitivity 5.8 pg/mL (<58.9)
--- NOTE | 2024-03-05 12:41 | EDPHYS ---
Physician Documentation [facility] Name: Justina Yoo Age: 63 yrs Sex: Female : 1960 Arrival Date: 03/05/2024 Time: 10:44 Bed 10 Private MD: LESLI Physician Buddy Ríos HPI: 03/05 12:41 This 63 yrs old Female presents to ER via Wheelchair with complaints of Low rt Blood Sugar, Fall Injury - Leg Pain. 12:41 Patient presents to the ED with fall, bruising to the right lower leg. Patient states rt that her blood sugar was low, at 80. Patient denies syncope, other acute complaints, symptoms are mild in severity, no other aggravating or alleviating factors.. Historical: - Allergies: 11:00 PENICILLINS; aa5 11:00 Tetanus Vaccines \T\ Toxoid; aa5 - PMHx: 11:00 Anxiety; Arthritis; Asthma; Depression; Diabetes - NIDDM; diabetes mellitus; aa5 Hypertension; Hypertensive disorder; Thyroid problem; - PSHx: 11:00 section; aa5 - Family history:: not pertinent. ROS: 12:41 Constitutional: Negative for fever, chills, and weight loss, Cardiovascular: Negative rt for chest pain, palpitations, and edema, Respiratory: Negative for shortness of breath, cough, wheezing, and pleuritic chest pain, Abdomen/GI: Negative for abdominal pain, nausea, vomiting, diarrhea, and constipation, Skin: Negative for injury, rash, and discoloration, Neuro: Negative for headache, weakness, numbness, tingling, and seizure, 12:41 MS/extremity: Positive for contusion, pain, Exam: 12:41 Constitutional: This is a well developed, well nourished patient who is awake, alert, rt and in no acute distress. Head/Face: Normocephalic, atraumatic. Chest/axilla: Normal chest wall appearance and motion. Nontender with no deformity. No lesions are appreciated. Cardiovascular: Regular rate and rhythm with a normal S1 and S2. No gallops, murmurs, or rubs. Normal PMI, no JVD. No pulse deficits. Respiratory: Lungs have equal breath sounds bilaterally, clear to auscultation and percussion. No rales, rhonchi or wheezes noted. No increased work of breathing, no retractions or nasal flaring. Abdomen/GI: Soft, non-tender, with normal bowel sounds. No distension or tympany. No guarding or rebound. No evidence of tenderness throughout. Skin: Warm, dry with normal turgor. Normal color with no rashes, no lesions, and no evidence of cellulitis. Neuro: Awake and alert, GCS 15, oriented to person, place, time, and situation. Cranial nerves II-XII grossly intact. Motor strength 5/5 in all extremities. Sensory grossly intact. Cerebellar exam normal. Normal gait. 12:41 ECG was reviewed by the Attending Physician. 12:41 Musculoskeletal/extremity: Contusion with tenderness over right tibia, no deformities noted, pulses, motor, sensation intact. Vital Signs: 11:00 BP 125 / 54; Pulse 72; Resp 18 S; Temp 97.8(TE); Pulse Ox 100% on R/A; Weight 112.04 kg aa5 (R); Height 5 ft. 0 in. (R); 13:00 BP 138 / 65; Pulse 70; Resp 16 S; Pulse Ox 99% on R/A; aa5 11:00 Body Mass Index 48.24 (112.04 kg, 152.4 cm) aa5 MDM: 10:58 Patient medically screened. rt 12:41 Differential diagnosis: Contusion, fracture, glucose disturbance. Data reviewed: vital rt signs, nurses notes, lab test result(s), EKG, radiologic studies. Consideration of Admission/Observation Escalation of care including admission/observation considered. Stable labs, no acute findings on x-ray, normal EKG, no indications for admission at this time.. Counseling: I had a detailed discussion with the patient and/or guardian regarding the historical points, exam findings, and any diagnostic results supporting the discharge/admit diagnosis, lab results, radiology results, the need for outpatient follow up, to return to the emergency department if symptoms worsen or persist or if there are any questions or concerns that arise at home. Response to treatment: the patient's symptoms have markedly improved after treatment. 03/05 11:05 Order name: Basic Metabolic Panel; Complete Time: 12:30 rt 03/05 11:05 Order name: CBC with Diff; Complete Time: 12:30 rt 03/05 11:05 Order name: Troponin HS; Complete Time: 12:30 rt 03/05 11:17 Order name: Glucose, Ancillary Testing; Complete Time: 12:30 EDMS 03/05 11:05 Order name: Tib Fib Right XRAY; Complete Time: 12: rt 03/05 11:05 Order name: Accucheck; Complete Time: 11: rt 03/05 11:05 Order name: Cardiac monitoring; Complete Time: 12: rt 03/05 11:05 Order name: EKG - Nurse/Tech; Complete Time: 12: rt 03/05 11:05 Order name: IV Saline Lock; Complete Time: 12: rt 03/05 11:05 Order name: Labs collected and sent; Complete Time: 12: rt 03/05 11:05 Order name: O2 Per Protocol; Complete Time: 12: rt 03/05 11:05 Order name: O2 Sat Monitoring; Complete Time: 12:03 rt EC:41 Rate is 65 beats/min. Rhythm is regular, Normal Sinus Rhythm with No ectopy. QRS [place] rt is Normal. [place] interval is normal. QRS interval is normal. QT interval is normal. No Q waves. T waves are Normal. No ST changes noted. Interpreted by me. Administered Medications: 11:20 Drug: Gabriels PO 5 mg-325 mg 1 tabs PO once Route: PO; aa5 12:00 Follow up: Response: No adverse reaction aa5 Point of Care Testing: Blood Glucose: 11:05 Blood Glucose: 142 mg/dL; aa5 Ranges: Critical Glucose Levels:Adult <50 mg/dl or >400 mg/dl <40 mg/dl or >180 mg/dl Disposition Summary: 03/05/24 12:41 Discharge Ordered Notes: Location: Home rt Problem: new rt Symptoms: have improved rt Condition: Stable rt Diagnosis - Contusion of right lower leg rt Followup: rt - With: Private Physician - When: 2 - 3 days - Reason: Discharge Instructions: - Discharge Summary Sheet rt - Contusion rt Forms: - Medication Reconciliation Form rt - Antibiotic Education rt - Prescription Opioid Use rt - Patient Portal Instructions rt - Leadership Thank You Letter rt Signatures: Dispatcher [employer] Laura Bolaños RN RN aa5 Buddy Ríos MD MD rt Corrections: (The following items were deleted from the chart) 11:05 11:05 BASIC METABOLIC PANEL+C.LAB.BRZ ordered. EDMS EDMS 11:05 11:05 CBC+H.LAB.BRZ ordered. EDMS EDMS 11:05 11:05 Troponin High Sensitivity+C.LAB.BRZ ordered. EDMS EDMS
--- NOTE | 2024-03-05 12:41 | ER ---
Nurse's Notes [facility] Name: Justina Yoo Age: 63 yrs Sex: Female : 1960 Arrival Date: 03/05/2024 Time: 10:44 Bed 10 Private MD: Diagnosis: Contusion of right lower leg Presentation: 03/05 11:00 Chief complaint: Patient states: "I fell and hit my leg". pt c/o right lower leg pain, aa5 denies head injury. Pt also states "my blood sugar has been running low at around 80". 11:00 Coronavirus screen: At this time, the client does not indicate any symptoms associated aa5 with coronavirus-19. Ebola Screen: Patient denies travel to an Ebola-affected area in the 21 days before illness onset. Initial Sepsis Screen: Does the patient meet any 2 criteria? No. Patient's initial sepsis screen is negative. Does the patient have a suspected source of infection? No. Patient's initial sepsis screen is negative. Risk Assessment: Do you want to hurt yourself or someone else? Patient reports no desire to harm self or others. Onset of symptoms was March 05, 2024. 11:00 Acuity: SARIKA 3 aa5 11:00 Method Of Arrival: Wheelchair aa5 Triage Assessment: 11:00 General: Appears uncomfortable, Behavior is anxious. Neuro: Level of Consciousness is aa5 awake, alert, obeys commands, Oriented to person, place, time, situation. Respiratory: Airway is patent Respiratory effort is even, unlabored, Respiratory pattern is regular, symmetrical. Derm: Skin is pink, warm \\T\\ dry. Musculoskeletal: Reports pain in right leg. Historical: - Allergies: 11:00 PENICILLINS; aa5 11:00 Tetanus Vaccines \\T\\ Toxoid; aa5 - PMHx: 11:00 Anxiety; Arthritis; Asthma; Depression; Diabetes - NIDDM; diabetes mellitus; aa5 Hypertension; Hypertensive disorder; Thyroid problem; - PSHx: 11:00 section; aa5 - Family history:: not pertinent. Screenin:23 [facility] ED Fall Risk Assessment (Adult) History of falling in the last 3 months, tl4 including since admission Yes- single mechanical fall (1 pt) Confusion or Disorientation No (0 pts) Intoxicated or Sedated No (0 pts) Impaired Gait No (0 pts) Mobility Assist Device Used No (0 pt) Altered Elimination No (0 pt) Score/Fall Risk Level 0 - 2 = Low Risk Oriented to surroundings, Maintained a safe environment, Educated pt \\T\\ family on fall prevention, incl call for assistance when getting out of bed, Assessed \\T\\ reinforced patient's understanding of fall precautions, Hourly rounding (assess needs \\T\\ fall precautionary measures) done, Used ambulatory aids as needed (educated on \\T\\ assisted with), Used gait belt as appropriate. Abuse screen: Denies threats or abuse. Denies injuries from another. Nutritional screening: No deficits noted. Tuberculosis screening: No symptoms or risk factors identified. Assessment: 12:00 Reassessment: Patient is alert, oriented x 3, equal unlabored respirations, skin aa5 warm/dry/pink. 12:23 General: Appears in no apparent distress. Behavior is calm, cooperative. Pain: tl4 Complains of pain in right leg. Neuro: Level of Consciousness is awake, alert, obeys commands, Oriented to person, place, time, situation, Moves all extremities. Full function. Cardiovascular: Capillary refill < 3 seconds Patient's skin is warm and dry. Respiratory: Airway is patent Respiratory effort is even, unlabored, Respiratory pattern is regular, symmetrical. GI: No signs and/or symptoms were reported involving the gastrointestinal system. : No signs and/or symptoms were reported regarding the genitourinary system. EENT: No signs and/or symptoms were reported regarding the EENT system. Derm: No signs and/or symptoms reported regarding the dermatologic system. Musculoskeletal: No signs and/or symptoms reported regarding the musculoskeletal system. 13:08 Reassessment: Patient is alert, oriented x 3, equal unlabored respirations, skin aa5 warm/dry/pink. Vital Signs: 11:00 BP 125 / 54; Pulse 72; Resp 18 S; Temp 97.8(TE); Pulse Ox 100% on R/A; Weight 112.04 kg aa5 (R); Height 5 ft. 0 in. (R); 13:00 BP 138 / 65; Pulse 70; Resp 16 S; Pulse Ox 99% on R/A; aa5 11:00 Body Mass Index 48.24 (112.04 kg, 152.4 cm) aa5 ED Course: 10:48 Patient arrived in ED. mg5 10:58 Buddy Ríos MD is Attending Physician. rt 11:00 Arm band placed on. aa5 11:02 Triage completed. aa5 12:02 Initial lab(s) drawn, by me, sent to lab. Inserted saline lock: 20 gauge in right hand, aa5 using aseptic technique. Blood collected. 12:16 Tib Fib Right XRAY In Process Unspecified. EDMS 12:22 Fidel George, RN is Primary Nurse. tl4 12:24 Patient has correct armband on for positive identification. Placed in gown. Bed in low tl4 position. Call light in reach. Side rails up X 1. Provided Education on: ed process, call reynolds. Client placed on continuous cardiac and pulse oximetry monitoring. NIBP monitoring applied. telemetry monitor on. Door closed. Noise minimized. Lights dimmed. Moved to private room. Warm blanket given. Pillow given. 13:08 No provider procedures requiring assistance completed. IV discontinued, intact, aa5 bleeding controlled, No redness/swelling at site. Pressure dressing applied. Administered Medications: 11:20 Drug: [place] PO 5 mg-325 mg 1 tabs PO once Route: PO; aa5 12:00 Follow up: Response: No adverse reaction aa5 Medication: 12:23 VIS not applicable for this client. tl4 Point of Care Testing: Blood Glucose: 11:05 Blood Glucose: 142 mg/dL; aa5 Ranges: Outcome: 12:41 Discharge ordered by . rt 13:08 Discharged to home ambulatory, aa5 13:08 Condition: stable 13:08 Discharge instructions given to patient, Instructed on discharge instructions, follow up and referral plans. Demonstrated understanding of instructions, follow-up care, 13:10 Patient left the ED. aa5 Signatures: Dispatcher [employer] EDRI Laura Dillard RN RN aa5 Buddy Ríos MD MD rt Emma Lincoln mg5 Fidel George, TSERING RN tl4
[2024-03-05 13:19] VITALS: BP 125/54; TEMP 97.8; O2SAT 100
--- NOTE | 2024-03-07 14:11 | EKG ---
Test Date: 2024-03-05 Test Time: 12:14:50 Monkey Keeper: TL MEASUREMENT RESULTS: Intervals: Rate: 65 RI: 152 QRSD: 84 QT: 428 QTc: 445 [place]: P: 65 RI: 152 QRS: 56 T: 52 INTERPRETIVE STATEMENTS: Normal sinus rhythm Normal ECG Compared to ECG 02/13/2024 15:03:03 Myocardial infarct finding no longer present Electronically Signed On 03-07-24 14:07:49 CDT by Chau Whatley
== END 2024-03-05 13:10 | disposition home or self-care (01) ==
LOC: ER 10:44
DX: S80.11XA Contusion of right lower leg, initial encounter (principal); W19.XXXA Unspecified fall, initial encounter; E11.9 Type 2 diabetes mellitus without complications; I10 Essential (primary) hypertension; J45.909 Unspecified asthma, uncomplicated; M19.90 Unspecified osteoarthritis, unspecified site; F41.9 Anxiety disorder, unspecified; F32.A Depression, unspecified; Z88.0 Allergy status to penicillin; Z88.7 Allergy status to serum and vaccine
CPT/HCPCS: 36415; 80048; 82947; 84484; 85025; 93005; 99284

== ENCOUNTER 2024-06-21 17:40 | Emergency (ER) | payer OTHER ==
[2024-06-21 18:24] LABS: Absolute Eosinophils 0.1 K/uL (0-0.5); Absolute Lymphocytes (CBC) 1.7 K/uL (0.7-4.9); Absolute Monocytes 0.4 K/uL (0.1-1.3); Absolute Neutrophil 3.8 K/uL (1.8-8.0); Basophils % 0.8 % (0-1.3); Eosinophils % 1.2 % (0-4.4); Hematocrit 42.1 % (36.0-45.0); Hemoglobin 14.4 g/dL (12.0-15.0); Lymphocytes % 28.2 % (15.3-44.8); MCH 29.3 pg (27.0-35.0); MCHC 34.2 g/dL (32.0-36.0); MCV 85.8 fL (80-100); MPV 8.5 fL (7.6-11.3); Neutrophils % 63.8 % (41.7-73.7); Platelets 253 thou/uL (152-406); Red Cell Distribution Width 13.9 % (12.1-15.2)
[2024-06-21 18:28] LABS: Protime INR 0.98
[2024-06-21 18:45] LABS: Anion Gap 7.5 mEq/L (5.0-15.0); Potassium 4.5 mEq/L (3.5-5.1); Troponin High Sensitivity 7.1 pg/mL (<58.9)
--- NOTE | 2024-06-21 18:48 | ER ---
Nurse's Notes [facility] Name: Justina Yoo Age: 64 yrs Sex: Female : 1960 Arrival Date: 06/21/2024 Time: 17:40 Bed 4 Private MD: Diagnosis: Anxiety disorder, unspecified Presentation: 06/21 17:49 Chief complaint: Patient states: She was cleaning her house and started to get SOB and ll1 dizzy. Took her BP 200/100 at home. Took a BP pill then came in. Coronavirus screen: Client denies travel out of the [place] in the last 14 days. At this time, the client does not indicate any symptoms associated with coronavirus-19. Ebola Screen: Patient denies travel to an Ebola-affected area in the 21 days before illness onset. Initial Sepsis Screen: Does the patient meet any 2 criteria? No. Patient's initial sepsis screen is negative. Does the patient have a suspected source of infection? No. Patient's initial sepsis screen is negative. Risk Assessment: Do you want to hurt yourself or someone else? Patient reports no desire to harm self or others. Onset of symptoms was June 21, 2024. 17:49 Method Of Arrival: Ambulatory ll1 17:49 Acuity: SARIKA 3 ll1 Triage Assessment: 17:49 General: Appears distressed, uncomfortable, Behavior is calm, cooperative, appropriate ll1 for age. Pain: Denies pain. Neuro: Reports dizziness. Cardiovascular: Reports fatigue, lightheadedness, shortness of breath, high BP. Respiratory: Reports shortness of breath. Historical: - Allergies: 17:49 PENICILLINS; ll1 17:49 Tetanus Vaccines \T\ Toxoid; ll1 - PMHx: 17:49 Anxiety; Arthritis; Asthma; Depression; Diabetes - NIDDM; diabetes mellitus; ll1 Hypertension; Hypertensive disorder; Thyroid problem; Hypercholesterolemia; - PSHx: 17:49 section; ll1 - Immunization history:: Adult Immunizations up to date. - Infectious Disease History:: Denies. - Social history:: Smoking status: Patient denies any tobacco usage or history of. Screenin:08 [facility] ED Fall Risk Assessment (Adult) History of falling in the last 3 months, mb9 including since admission No falls in past 3 months (0 pts) Confusion or Disorientation No (0 pts) Intoxicated or Sedated No (0 pts) Impaired Gait No (0 pts) Mobility Assist Device Used No (0 pt) Altered Elimination No (0 pt) Score/Fall Risk Level 0 - 2 = Low Risk Oriented to surroundings, Maintained a safe environment, Educated pt \T\ family on fall prevention, incl call for assistance when getting out of bed. Abuse screen: Denies threats or abuse. Nutritional screening: No deficits noted. Tuberculosis screening: No symptoms or risk factors identified. Assessment: 18:20 General: Appears in no apparent distress. Behavior is calm, cooperative, appropriate ap3 for age. Pain: Denies pain. Neuro: Level of Consciousness is awake, alert, obeys commands, Oriented to person, place, time, situation. Cardiovascular: Patient's skin is warm and dry. Respiratory: Airway is patent Respiratory effort is even, unlabored, Respiratory pattern is regular, symmetrical. Vital Signs: 17:49 BP 184 / 65; Pulse 100; Resp 18; Temp 98; Pulse Ox 99% ; Weight 108.86 kg; Height 4 ft. ll1 10 in. ; Pain 0/10; 18:16 BP 162 / 69; Pulse 84; Resp 16; Pulse Ox 100% on R/A; mb9 17:49 Body Mass Index 50.16 (108.86 kg, 147.32 cm) ll1 17:49 Pain Scale: Adult ll1 ED Course: 17:42 Patient arrived in ED. ra3 17:49 Arm band placed on Patient placed in an exam room, on a stretcher. ll1 17:51 Triage completed. ll1 17:53 Alexy Ac MD is Attending Physician. ec2 18:05 Patty Quiñones, RN is Primary Nurse. ap3 18:08 Bed in low position. Call light in reach. Side rails up X 1. Provided Education on: mb9 press call light if needing anything. Client placed on continuous cardiac and pulse oximetry monitoring. NIBP monitoring applied. air sampling and monitoring on. 18:08 Missed attempt(s): 22 gauge in right antecubital area. Bleeding controlled, band aid mb9 applied, catheter tip intact. 18:17 EKG done, by ED staff, reviewed by Alexy Ac MD. mb9 18:19 Initial lab(s) drawn, by me, sent to lab. Inserted saline lock: 22 gauge in right ap3 forearm, using aseptic technique. Blood collected. Flushed with 10 mL NS. 18:47 XRAY Chest (1 view) In Process Unspecified. EDMS 18:55 No provider procedures requiring assistance completed. IV discontinued, intact, ap3 bleeding controlled, No redness/swelling at site. Pressure dressing applied. Administered Medications: No medications were administered Medication: 18:17 VIS not applicable for this client. mb9 Outcome: 18:48 Discharge ordered by . ec2 18:55 Discharged to home ambulatory, with family, ap3 18:55 Condition: good 18:55 Discharge instructions given to patient, Instructed on discharge instructions, follow up and referral plans. medication usage, Demonstrated understanding of instructions, follow-up care, medications, Prescriptions given X 1, 18:55 Patient left the ED. ap3 Signatures: Dispatcher [employer] EDAL Patty Quiñones RN RN ap3 Teagan Pereyra RN RN ll1 Ernesto, Samra Bhardwaj RN RN mb9 Alexy Ac MD MD ec2 Tere Ross 3
--- NOTE | 2024-06-21 18:48 | EDPHYS ---
Physician Documentation [facility] Name: Justina Yoo Age: 64 yrs Sex: Female : 1960 Arrival Date: 06/21/2024 Time: 17:40 Bed 4 Private MD: ED Physician Alexy Ac HPI: 06/21 18:10 This 64 yrs old Female presents to ER via Ambulatory with complaints of High ec2 Blood Pressure. 18:10 Patient arrives today for evaluation due to concern for possible anxiety, elevated ec2 blood pressure. States that she felt some lightheadedness, subsequently checked her blood pressure noted this to be high and came to be evaluated. State after she noted the high blood pressure she started feeling anxious and started feeling some paresthesias throughout her body. Reports history of anxiety, depression. Reports no chest pain. Reports no difficulty breathing at this time. Did report some shortness of breath during this episode.. Historical: - Allergies: 17:49 PENICILLINS; ll1 17:49 Tetanus Vaccines \T\ Toxoid; ll1 - PMHx: 17:49 Anxiety; Arthritis; Asthma; Depression; Diabetes - NIDDM; diabetes mellitus; ll1 Hypertension; Hypertensive disorder; Thyroid problem; Hypercholesterolemia; - PSHx: 17:49 section; ll1 - Immunization history:: Adult Immunizations up to date. - Infectious Disease History:: Denies. - Social history:: Smoking status: Patient denies any tobacco usage or history of. ROS: 18:10 Constitutional: as per hpi ec2 Exam: 18:10 Constitutional: GEN: NAD Head: atraumatic Eyes: EOMI Ears: External ears are ec2 normal. CV: regular rate LUNGS: no respiratory distress ABD: non-distended SKIN: no evidence of rashes MSK: no evidence of trauma Vital Signs: 17:49 BP 184 / 65; Pulse 100; Resp 18; Temp 98; Pulse Ox 99% ; Weight 108.86 kg; Height 4 ft. ll1 10 in. ; Pain 0/10; 18:16 BP 162 / 69; Pulse 84; Resp 16; Pulse Ox 100% on R/A; mb9 17:49 Body Mass Index 50.16 (108.86 kg, 147.32 cm) ll1 17:49 Pain Scale: Adult ll1 MDM: 18:10 Data reviewed: vital signs. ED course: Patient arrives today for evaluation of elevated ec2 blood pressure as well as concern for anxiety. Examination remarkable for well-appearing nontoxic dividual's otherwise in no acute distress with a reassuring examination. Will obtain lab work, EKG, chest x-ray. Differential diagnosis includes anxiety, evaluating for endorgan damage including renal dysfunction, ACS . 18:25 ED course: EKG independently reviewed and interpreted by me, shows normal sinus rhythm, ec2 rate of 80, no acute ST segment elevations, intervals are nonactionable. . 18:42 ED course: Chest x-ray independently reviewed and interpreted by me, shows no acute ec2 intrathoracic process.. 18:47 ED course: CBC, metabolic profile, troponin are nonactionable. I suspect patient's ec2 anxiety is contributing to patient's symptoms. No evidence of ACS, doubt PE or dissection. Will discharge home. Return precautions given.. 18:48 Patient medically screened. ec2 06/21 17:54 Order name: Basic Metabolic Panel; Complete Time: 18:47 ec2 06/21 17:54 Order name: CBC with Diff; Complete Time: 18:35 ec2 06/21 17:54 Order name: NT PRO-BNP; Complete Time: 18:47 ec2 06/21 17:54 Order name: PT-INR; Complete Time: 18:35 ec2 06/21 17:54 Order name: Troponin HS; Complete Time: 18:47 ec2 06/21 17:54 Order name: XRAY Chest (1 view) ec2 06/21 17:54 Order name: Cardiac monitoring; Complete Time: 18:19 ec2 06/21 17:54 Order name: EKG - Nurse/Tech; Complete Time: 18:28 ec2 06/21 17:54 Order name: IV Saline Lock; Complete Time: 18:19 ec2 06/21 17:54 Order name: Labs collected and sent; Complete Time: 18:19 ec2 06/21 17:54 Order name: O2 Per Protocol; Complete Time: 18:19 ec2 06/21 17:54 Order name: O2 Sat Monitoring; Complete Time: 18:19 ec2 Administered Medications: No medications were administered Disposition Summary: 06/21/24 18:48 Discharge Ordered Notes: Location: Home ec2 Condition: Stable ec2 Diagnosis - Anxiety disorder, unspecified ec2 Followup: ec2 - With: Private Physician - When: - Reason: Re-evaluation by your physician Discharge Instructions: - Discharge Summary Sheet ec2 - Panic Attack ec2 Forms: - Medication Reconciliation Form ec2 - Antibiotic Education ec2 - Prescription Opioid Use ec2 - Patient Portal Instructions ec2 - Leadership Thank You Letter ec2 Prescriptions: - Hydroxyzine HCl 25 mg Oral Tablet - take 1 tablet ORAL route every 6 hours As needed; 30 tablet; Refills: 0, ec2 Product Selection Permitted Signatures: Dispatcher [employer] EDMS Teagan Pereyra, RN RN ll1 Samra Orozco RN RN mb9 Alexy Ac MD MD ec2 Corrections: (The following items were deleted from the chart) 17:55 17:55 BASIC METABOLIC PANEL+C.LAB.BRZ ordered. EDMS EDMS 17:55 17:55 CBC+H.LAB.BRZ ordered. EDMS EDMS 17:55 17:55 PROBNP+C.LAB.BRZ ordered. EDMS EDMS 17:55 17:55 PROTIME (+INR)+COAG.LAB.BRZ ordered. EDMS EDMS 17:55 17:55 Troponin High Sensitivity+C.LAB.BRZ ordered. EDMS EDMS 17:55 17:55 Chest Single View+RAD.RAD.BRZ ordered. EDMS EDMS
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
[2024-06-21 22:37] VITALS: BP 184/65; TEMP 98; O2SAT 99
== END 2024-06-21 18:55 | disposition home or self-care (01) ==
LOC: ER 17:40
DX: F41.9 Anxiety disorder, unspecified (principal); I10 Essential (primary) hypertension; E11.9 Type 2 diabetes mellitus without complications
CPT/HCPCS: 36415; 71045; 80048; 83880; 84484; 85025; 85610; 93005

== ENCOUNTER 2025-06-09 17:11 | Emergency (ER) | payer OTHER ==
[2025-06-09] MEDS ORDERED: HYDROCODONE/APAP 5/325 MG TAB ONE (17:48)
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
[2025-06-09 19:34] VITALS: BP 188/97; TEMP 98; O2SAT 99
== END 2025-06-09 18:36 | disposition home or self-care (01) ==
LOC: ER 17:11
DX: S09.90XA Unspecified injury of head, initial encounter (principal); R51.9 Headache, unspecified; E11.9 Type 2 diabetes mellitus without complications; F41.9 Anxiety disorder, unspecified; E78.00 Pure hypercholesterolemia, unspecified; I10 Essential (primary) hypertension; J45.909 Unspecified asthma, uncomplicated; Z88.0 Allergy status to penicillin; Z88.7 Allergy status to serum and vaccine; V43.52XA Car driver injured in collision with other type car in traffic accident, initial encounter; Y93.89 Activity, other specified; Y92.488 Other paved roadways as the place of occurrence of the external cause
CPT/HCPCS: 70450; 99284